=== PATIENT | male | born 1990 | race Caucasian/White ===

== ENCOUNTER 2018-10-28 08:17 | Emergency (ER) | payer SELFPAY ==
[2018-10-28 08:20] VITALS: BP 134/94; PULSE 96; RESP 18; TEMP 37; O2SAT 95
--- NOTE | 2018-10-28 08:59 | W.ED.GENAD ---
Discharge Plan Disposition Patient Disposition: HOME Condition: Stable Discharge Details Chief Complaint: Laceration Clinical Impression: Laceration Primary Care Provider: Juan Jose Goins ED Provider: Christy Forde Home Meds and New Rx's Prescriptions: New cephalexin [Keflex] 500 mg capsule 500 mg PO QID 7 Days Qty: 28 RF: 0 Continued albuterol sulfate [Ventolin HFA] 200 PUFF HFA aerosol inhaler 2 puff . PRN PRNRF: 0 budesonide [Pulmicort Flexhaler] 120 PUFF aerosol powdr breath activated 2 puff . BID RF: 0 omeprazole 20 MG tablet,delayed release (DR/EC) 20 mg PO PRN PRNRF: 0 Discharge Instructions Instructions: Laceration (ED) Additional Instructions: Keep the wound clean, dry and covered. Do not cover with tape or Band-Aid. Let the Dermabond glue fall off naturally. Do not peel it off. Do not soak foot in water. Take the antibiotics until finished. Follow-up with the primary care doctor in 3 days for reevaluation. Return immediately to the emergency department with any worsening or new concerning symptoms such as fever, increased pain, redness or swelling. Discharge Data Discharge Physician: Christy Forde Medical Decision Making 28-year-old male who presents with a laceration to his right heel sustained when stepping on a prong from a plug at home while barefoot prior to arrival. There is a 1 cm square C-shaped flap laceration noted to the right medial heel. There is no bony injury or foreign body noted. There is no evidence of infection. Neurovascular intact. I was able to use tweezers to pull the flap tucked underneath the skin to then realign it to the remaining edges and now it is well approximated. The area was extensively cleaned with Hibiclens. Due to risk of infection with open wound on the heel, I think it would be beneficial to keep the skin flap. I think that a suture would likely tear through the flap, so the flap was glued with dermabond to the edges. As this was not an actual puncture wound but rather it appears that it was a laceration, and patient was barefoot, there appears to be a less likely chance of infections associated with puncture wound. As patient denies any foreign body and wound is superficial, I do not see an indication for imaging and patient is agreeable. He still was offered imaging of his foot but he declines. Tetanus up-to-date 2013. Patient will be given a prescription for Keflex and due to wound on the heel. He is instructed to keep wound clean, dry and covered. He is instructed to avoid tape or Band-Aids to area but to cover with gauze and protective dressing. He is instructed to follow-up with primary care doctor for reevaluation and return here with any signs of worsening symptoms such as fever, increased pain, redness or swelling. Medical Records Medical records reviewed: Yes I reviewed the patient's medical records. HPI General Mode of arrival: ambulatory. Date/Time Provider Initiated Documentation: 10/28/18 08:25. Limitations to Documentation: no limitations. Information obtained by: patient. HPI Narrative: Pt is a 28yo M w/ a h/o asthma who presents for puncture wound to R foot sustained just prior to arrival. Patient states he was walking barefoot at home when he stepped on the prongs of a plug. Patient states it caused a skin tear on the bottom of his foot. He states he has been able to ambulate but with pain. 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 He states he also came here for a work note. Patient is unsure of his tetanus status. He denies any known foreign body within the foot. He denies any bony injury. Related Data Home Medications Medication Instructions Recorded Confirmed albuterol sulfate [Ventolin HFA] 2 puff . PRN PRN 02/01/17 09/21/17 budesonide [Pulmicort Flexhaler] 2 puff . BID 02/01/17 09/21/17 omeprazole 20 mg PO PRN PRN 09/21/17 09/21/17 cephalexin [Keflex] 500 mg PO QID 7 Days #28 cap 10/28/18 Previous Rx's Medication Instructions Recorded cephalexin [Keflex] 500 mg PO QID 7 Days #28 cap 10/28/18 Allergies Allergy/AdvReac Type Severity Reaction Status Date / Time No Known Allergies Allergy Unverified 09/21/17 11:48 General Stated Complaint: Laceration FAITH: 4 Review of Systems Review of Systems All systems reviewed & are unremarkable except as noted in HPI and below Constitutional Reports as per HPI, Denies chills and Denies fever(s) Eyes Denies blurry vision ENT Denies dizziness, Denies sore throat and Denies throat swelling Cardiovascular Denies chest pain and Denies dyspnea Respiratory Denies cough and Denies dyspnea Gastrointestinal Denies abdominal pain, Denies diarrhea and Denies vomiting Genitourinary Denies hematuria and Denies dysuria Musculoskeletal Denies back pain and Denies numbness Integumentary/Breasts Denies lesions, Denies rash and Reports other (laceration R foot) Neurologic Denies dizziness, Denies focal weakness and Denies numbness Allergic/Immunologic Denies throat swelling [facility] Medical History Asthma (Chronic) Surgical History No significant past surgical history (Acute) Social History Smoking/Tobacco Use Status: Current every day Tobacco Type: cigarettes Alcohol Intake: never Drug use: Never Do you feel safe at home: Yes Do you feel safe in your relationship?: Yes Exam Const General: cooperative, healthy appearing and no acute distress HENMT Head: normal to inspection Mouth: oral mucosae normal Eyes General: appearance normal, both eyes and all related structures Neck Neck: normal visual inspection Resp Effort & Inspection: normal respiratory effort and able to speak in complete sentences Cardio Rate: regular rate Skin General skin exam: no rashes or lesions noted Neuro General: alert, awake and oriented x3 Motor: muscle tone normal throughout Extrem Other: There is a 1 cm square C-shaped flap laceration noted on the heel of the right foot. It is located on the medial surface of the heel. There is no obvious foreign body. No erythema, edema, ecchymosis. No bony injury. R PT pulse intact. Psych Appearance: grossly normal Affect: normal affect Course Vital Signs Temperature 98.6 F 10/28/18 08:20 Pulse 96 H 10/28/18 08:20 Respiratory Rate 18 10/28/18 08:20 Blood Pressure 134/94 H 10/28/18 08:20 Pulse Oximetry 95 10/28/18 08:20 Temperature 98.6 F 10/28/18 08:20 Temperature Source Temporal Artery Scan 10/28/18 08:20 Pulse 96 H 10/28/18 08:20 Respiratory Rate 18 10/28/18 08:20 Respiratory Effort Non-Labored 10/28/18 08:22 Blood Pressure 134/94 H 10/28/18 08:20 Blood Pressure Position Sitting 10/28/18 08:20 Pulse Oximetry 95 10/28/18 08:20 Oxygen Delivery Method Room Air 10/28/18 08:20 Oxygen Flow Rate 0 10/28/18 08:20 Pain Level 9 10/28/18 08:26
== END 2018-10-28 09:55 | disposition home or self-care (01) ==
PROVIDERS: Emergency Provider Physician Assistant; PCP General Practice
DX: S91.311A Laceration without foreign body, right foot, initial encounter (principal); W45.8XXA Other foreign body or object entering through skin, initial encounter
CPT/HCPCS: 12001

== ENCOUNTER 2019-09-07 03:22 | Outpatient (CLI) | payer MEDICAID, SELFPAY | END 2019-09-07 03:42 | PROVIDERS: PCP Family Medicine; Visit Provider Family Medicine | DX: J45.909 Unspecified asthma, uncomplicated (principal); Z53.09 Procedure and treatment not carried out because of other contraindication ==

== ENCOUNTER 2019-09-20 19:37 | Emergency (ER) | payer MEDICAID, SELFPAY ==
[2019-09-20 19:55] VITALS: BP 124/79; PULSE 124; RESP 20; TEMP 36.3; O2SAT 95
--- NOTE | 2019-09-20 20:25 | W.ED.GENAD ---
Discharge Plan Disposition Patient Disposition: HOME Condition: Good Discharge Details Chief Complaint: RespSymp Clinical Impression: Influenza, Pneumonia, Asthma exacerbation Primary Care Provider: Tony Dao ED Provider: Becca Antunez Home Meds and New Rx's Prescriptions: New prednisone 50 mg tablet 50 mg PO DAILY Qty: 4 RF: 0 doxycycline hyclate 100 mg tablet 100 mg PO BID Qty: 10 RF: 0 Continued Pulmicort Flexhaler 180 mcg/actuation aerosol powdr breath activated 2 inh inhalation BID Qty: 1 RF: 12 albuterol sulfate [Ventolin HFA] 90 mcg/actuation HFA aerosol inhaler 2 puff inhalation Q6H PRN (Reason: shortness of breath or wheezing) Qty: 18 RF: 6 montelukast [Singulair] 10 mg tablet 10 mg PO QHS Qty: 30 RF: 1 omeprazole 20 mg capsule,delayed release(DR/EC) 20 mg PO BID RF: 0 oseltamivir [Tamiflu] 75 mg capsule 75 mg PO DAILY Qty: 5 RF: 0 Discharge Instructions Instructions: Doxycycline (By mouth), Influenza (ED), Pneumonia (ED) Additional Instructions: Encourage water intake. Tylenol and/or ibuprofen as needed for discomfort or fevers. Please take the antibiotics as prescribed. If symptoms improve, please take the entire course. Please continue the Tamiflu as previously prescribed. Steroids as prescribed for your asthma. If you develop difficulty breathing, shortness of breath, inability stay hydrated or other new/worsening symptoms please seek care urgently once again. Otherwise, please follow-up with primary care date of the week for reevaluation. Stand Alone Forms: Work Release Referrals: Tony Dao DO [Primary Care Provider] - Discharge Data Discharge Date/Time-TO BE ENTERED AT DEPARTURE: 09/20/19 22:30 Medical Decision Making Patient is a pleasant 29-year-old male presenting today with chief complaint of influenza. Reports that he was diagnosed with influenza by his primary care provider 2 days ago and started on Tamiflu. Despite using this, he reports his symptoms have worsened this afternoon. In particular, he feels that his asthma is exacerbated. He did use inhaler with some relief. However, he continues to cough, have body aches and intermittent fevers. States that during 1 of his coughing fits, he did vomit x1. Is not currently feeling nauseated. Denies any diarrhea. States he does have some discomfort with coughing. No recent travel. No known sick contacts. On exam, patient is resting comfortably. He does not appear toxic. His initial heart was documented 124 but this seems to come down by the time I was auscultating his chest. Lungs are clear, moving air well. I do not appreciate any wheezes, rales, rhonchi. However, given the patient's progression of symptoms, feel that imaging is appropriate and will obtain chest x-ray. Give ODT Zofran to help with his nausea as well as Tylenol ibuprofen to help with his diffuse body aches. X-ray reviewed by radiology: FINDINGS: Lungs: Left basilar linear increased markings with small patchy adjacent parenchymal density. Pleural space: Unremarkable. No pleural effusion. No pneumothorax. Heart/Mediastinum: Unremarkable. No cardiomegaly. Bones/joints: Unremarkable. IMPRESSION: Left basilar linear fibrotic/atelectatic changes. Small patchy adjacent infiltrate cannot be excluded. Please correlate with the patient's clinical findings. Discussed these findings with the patient. Given his increased cough and asthma exacerbation, I would prefer to treat this as it is pneumonia despite him clinically looking otherwise well. Plan to treat patient with doxycycline. We will also start him on prednisone burst for his asthma. Patient does feel much improved after Zofran, Tylenol and ibuprofen. He is requesting food and discharge. Patient was given strict return precautions. Encourage hydration. Advise follow-up with primary care for reevaluation at the end of the week. All his questions and concerns were addressed and he is in agreement this plan. [facility] General Mode of arrival: ambulatory. Date/Time Provider Initiated Documentation: 09/20/19 20:24. Limitations to Documentation: no limitations. Information obtained by: patient, family (signficant other) and RN notes reviewed. History of Present Illness 29 year old M presents to the emergency department with the chief complaint of cough, congestion, fevers, asthma exacerbation, described as moderate, Quality is described as aching (wtih cough), and is localized to the chest. Patient reports no radiation. Patient started experiencing this day(s) and it has been constant. No relieving factors improve symptom(s), No exacerbating factors reported . Patient notes cough, fever/chills, loss of appetite (diminshed this afternoon), nausea/vomiting (vomited x 1 , associates with forceful coughing) and shortness of breath (associated with asthma, responded to inhaler); denies chest pain, diaphoresis, headaches and rash. Patient did receive the following treatments prior to arrival, other (inhaler) Related Data Home Medications Medication Instructions Recorded Confirmed albuterol sulfate 90 mcg/actuation 2 puff INHALATION Q6H PRN #18 gm 08/04/19 09/20/19 aerosol inhaler budesonide 180 mcg/actuation 2 inh INHALATION BID #1 each 08/04/19 09/20/19 breath activated powder inhaler montelukast 10 mg tablet 10 mg PO QHS #30 tab 08/29/19 09/20/19 omeprazole 20 mg capsule,delayed 20 mg PO BID 09/14/19 09/20/19 release oseltamivir 75 mg capsule 75 mg PO DAILY #5 cap 09/18/19 09/20/19 doxycycline hyclate 100 mg PO BID #10 tab 09/20/19 prednisone 50 mg PO DAILY #4 tab 09/20/19 Previous Rx's Medication Instructions Recorded albuterol sulfate 90 mcg/actuation 2 puff INHALATION Q6H PRN #18 gm 08/04/19 aerosol inhaler budesonide 180 mcg/actuation 2 inh INHALATION BID #1 each 08/04/19 breath activated powder inhaler montelukast 10 mg tablet 10 mg PO QHS #30 tab 08/29/19 oseltamivir 75 mg capsule 75 mg PO DAILY #5 cap 09/18/19 doxycycline hyclate 100 mg PO BID #10 tab 09/20/19 prednisone 50 mg PO DAILY #4 tab 09/20/19 Allergies Allergy/AdvReac Type Severity Reaction Status Date / Time No Known Allergies Allergy Verified 09/14/19 13:14 General Stated Complaint: RespSymp FAITH: 3 Review of Systems Constitutional Constitutional: Reports as per HPI, Reports fatigue, Reports fever(s) (reports intermittent fevers over the past few days), Denies headache(s) and Reports malaise Eyes Eyes: Reports as per HPI, Denies eye discharge and Denies irritation ENT Ears, Nose, Mouth, and Throat: Reports as per HPI and Denies headache(s) Cardiovascular Cardiovascular: Reports as per HPI, Denies chest pain and Denies dyspnea Respiratory Respiratory: Reports as per HPI and Denies dyspnea Gastrointestinal Gastrointestinal: Reports as per HPI, Denies abdominal pain, Denies change in bowel habits, Denies nausea and Denies vomiting Integumentary/Breasts Skin/Breast: Reports as per HPI and Denies rash Neurologic Neurologic: Reports as per HPI and Denies headache(s) Endocrine Endocrine: Reports fatigue [facility] Medical History Asthma (Chronic) Depression (Chronic) Dyspepsia (Acute) Insomnia (Acute) Surgical History No significant past surgical history (Acute) Family History (Updated 08/04/19 @ 11:24 by Gwendolyn Gomez RN) Maternal Grandmother Pancreatic cancer Diabetes Paternal Grandmother Diabetes Father Heart disease Hypertension Mother Colon cancer Social History (Updated 08/29/19 @ 13:58 by Glenny Coulter LPN) Smoking/Tobacco Use Status: Current every day Tobacco Type: cigarettes Years smoked: 10 Tobacco: How many years used: 10 Second Hand Exposure: No Alcohol Intake: never Drug use: Never Substance use type: does not use Adopted: Yes Foster care: Yes Household members: significant other Housing: apartment Number of Children: 0 Communication Needs: None Education Level: high school Do you need help understanding health information?: Never current occupation: [employer] Pets and animals: Yes Pets and animals: cat(s) and bird(s) Sexually active: No Do you think of yourself as: Decline to Provide Current gender identity: male What type of physical activity do you participate in: irregular exercise Stefanei/Congregation: No preference Special stefanie needs: No Agree to transfusion: Yes Seatbelt use: sometimes Helmet use: No 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 Working smoke detector in home: Yes Fire extinguisher in home: Yes Carbon monox detector in home: Yes Firearms in home: No Do you feel safe at home: Yes Do you feel safe in your relationship?: Yes Exam Const General: cooperative, healthy appearing, comfortable, no acute distress, well developed and well groomed Nutritional Appearance: average body habitus and well nourished Orientation: alert and awake [facility] Head: normal to inspection, normocephalic and atraumatic Ears: hearing grossly normal bilaterally, external ears normal and TM's normal bilaterally General nose exam: external nose normal and nares normal Face and sinus: normal facial exam, sinuses nontender and face symmetric Mouth: oral mucosae normal, lip normal, tongue normal, oropharynx normal and moist mucous membranes Teeth and gingiva: dentition normal Throat: posterior oropharynx normal, tonsils normal and uvula midline Eyes General: appearance normal, both eyes and all related structures Neck Neck: normal visual inspection, full ROM, no lymphadenopathy and no meningeal signs Resp Effort & Inspection: normal respiratory effort, able to speak in complete sentences and no respiratory distress Auscultation: clear to auscultation bilaterally, no rales, no rhonchi and no wheezes Cardio Rate: regular rate Rhythm: regular rhythm Heart Sounds: S1 normal and S2 normal Skin General skin exam: no rashes or lesions noted Neuro General: alert and awake Cognition: normal cognition Speech: speech normal Gait: normal gait Psych Appearance: grossly normal and well kempt Mental Status: mental status grossly normal Speech and Movement: speech and movement normal Course Vital Signs Vital signs: Vital Signs Temperature 36.3 C L 09/20/19 19:55 Pulse 124 H 09/20/19 19:55 Respiratory Rate 09/20/19 19:55 Blood Pressure 124/79 09/20/19 19:55 Pulse Oximetry 95 09/20/19 19:55 Temperature 36.3 C L 09/20/19 19:55 Temperature Source Skin 09/20/19 19:55 Pulse 124 H 09/20/19 19:55 Respiratory Rate 20 09/20/19 19:55 Respiratory Effort 09/20/19 20:16 Blood Pressure 124/79 09/20/19 19:55 Pulse Oximetry 95 09/20/19 19:55 Oxygen Delivery Method Room Air 09/20/19 19:55 Oxygen Flow Rate 0 09/20/19 19:55 Pain Level 7 09/20/19 19:55 Comment 09/20/19 19:55
[2019-09-20] MEDS: Ibuprofen 600 MG TAB PO (21:04)
[2019-09-20] MEDS: Ondansetron O.D.T. 4 MG TABEF PO (21:04)
[2019-09-20] MEDS: Acetaminophen 500 MG TAB 1000 MG PO (21:04)
--- NOTE | 2019-09-20 21:35 | DI.RAD_ITS ---
EXAM: XR CHEST 2V PA LATERAL INDICATION: cough. COMPARISON: No exams were available for comparison TECHNIQUE: 2D digital imaging was performed. FINDINGS: The cardiac and mediastinal contours have a normal appearance. There are linear densities above the left diaphragm which could represent infiltrate versus atelectasis. Remainder of the lung tai ap pear clear. No effusions or pneumothorax is seen. IMPRESSION: Left basilar atelectasis versus infiltrate. DATA REPOSITORY: RADIATION DOSE DELIVERED:
--- NOTE | 2019-09-20 21:56 | DI.VRAD_ITS ---
PROCEDURE INFORMATION: Exam: XR Chest, 2 Views Exam date and time: 09/20/2019 9:31 PM Age: 29 years old Clinical indication: Other: Cough TECHNIQUE: Imaging protocol: XR of the chest Views: 2 views. COMPARISON: CR CHEST 2 VIEWS PA,LAT 12/03/2016 2:11 PM FINDINGS: Lungs: Left basilar linear increased markings with small patchy adjacent parenchymal density. Pleural space: Unremarkable. No pleural effusion. No pneumothorax. Heart/Mediastinum: Unremarkable. No cardiomegaly. Bones/joints: Unremarkable. IMPRESSION: Left basilar linear fibrotic/atelectatic changes. Small patchy adjacent infiltrate cannot be excluded. Please correlate with the patient's clinical findings. Dictated and Authenticated by: Basim Florence MD. Ordering:JV Hudson MD
[2019-09-20] MEDS: Doxycycline Hyclate 100 MG CAP 200 MG PO (22:23)
[2019-09-20] MEDS: predniSONE 10 MG TAB 50 MG PO ×2 (22:24→22:25)
[2019-09-20 22:30] VITALS: BP 137/77; PULSE 89; RESP 20; O2SAT 96
== END 2019-09-20 22:30 | disposition home or self-care (01) ==
PROVIDERS: Emergency Provider Physician Assistant; PCP Family Medicine
DX: J11.00 Influenza due to unidentified influenza virus with unspecified type of pneumonia (principal); J45.901 Unspecified asthma with (acute) exacerbation; F17.210 Nicotine dependence, cigarettes, uncomplicated
CPT/HCPCS: 99283; 71046; 99284; J7512

== ENCOUNTER 2019-10-18 01:24 | Outpatient (CLI) | payer MEDICAID, SELFPAY ==
--- NOTE | 2019-10-18 09:15 | DI.RAD_ITS ---
EXAM: RF BARIUM SWALLOW CLINICAL HISTORY: VOMITING, DYSPEPSIA, R10.13 TECHNIQUE: 2D and realtime digital imaging was performed. CONTRAST MATERIAL: Oral bariumcontrast was administered. COMPARISON: No exams were available for comparison FINDINGS: CHEST X-RAY: The heart and pulmonary vasculature are within normal limits. The lungs are clear. No pl eural effusion or pneumothorax is present. The bones are within normal limits fo the patient's age. ESOPHAGRAM: The esophagus is patent with no evidence for erosions, fold thickening, strictures, or ma sses. With regards to the motility, there is a normal primary stripping wave. No tertiary contraction s were noted. There is a small hiatal hernia. No gastroesophageal reflux is present. Fluoro Time: 1.29 minutes IMPRESSION: Small hiatal hernia, otherwise unremarkable esophagram.
[2019-10-18] MEDS: Barium Sulfate 60% W/V 355 ML BTL PO (10:20)
[2019-10-18] MEDS: Simethicone/Sod Bicarb/Cit Ac, 4 gram PACKET 1 PACKET PO (10:21)
== END 2019-10-18 01:44 ==
PROVIDERS: PCP Family Medicine; Visit Provider Surgery
DX: R11.10 Vomiting, unspecified; R10.13 Epigastric pain; K44.9 Diaphragmatic hernia without obstruction or gangrene
CPT/HCPCS: 74221; J3490

== ENCOUNTER 2020-05-17 02:58 | Outpatient (CLI) | payer MEDICAID, SELFPAY ==
--- NOTE | 2020-05-17 12:30 | DI.RAD_ITS ---
EXAM: XR SCOLIOSIS T-L SPINE CLINICAL HISTORY: Likely thoracic scoliosis, please evaluate,M41.9. TECHNIQUE: 2D digital imaging was performed. COMPARISON: CR,RF RF BARIUM SWALLOW from 10/18/2019 FINDINGS: Standing AP views were performed including the neck through pelvis. There is a mild levoscoliosis wi th the apex at L2-3. There is a minimal dextroscoliosis in the thoracic region. No vertebral body d eformities are seen. There are no significant degenerative changes. There is no significant leg roxana gth discrepancy. The heart size is normal. The lungs are clear. The bowel gas pattern is unremarka ble. Hip joint spaces are well maintained. IMPRESSION: Mild scoliosis. DATA REPOSITORY: RADIATION DOSE DELIVERED:
== END 2020-05-17 03:18 ==
PROVIDERS: PCP Family Medicine; Visit Provider Family Medicine
DX: M41.86 Other forms of scoliosis, lumbar region (principal)
CPT/HCPCS: 72081

== ENCOUNTER 2020-05-22 09:40 | Emergency (ER) | payer MEDICAID, SELFPAY ==
[2020-05-22] VITALS (27 sets, daily range): BP systolic 99–132; BP diastolic 54–96; PULSE 62–107; RESP 13–22; TEMP 36.6; O2SAT 95–100
--- NOTE | 2020-05-22 09:30 | RT.EKG_ITS ---
APPROVED REPORT Exam: Resting ECG Patient Location: E HR:82 bpm ECG Measurements Heart Rate 82 AXIS ND 147 P 65 QRSd 83 QRS 52 QT 367 T 45 QTc 430 Conclusion Sinus rhythm...normal P axis, V-rate 60- 99
--- NOTE | 2020-05-22 09:51 | W.ED.GENAD ---
Discharge Plan Disposition Patient Disposition: HOME Condition: Stable Discharge Details Clinical Impression: Chest pain in adult Primary Care Provider: Tony Dao ED Provider: Jamila Haynes Home Meds and New Rx's Prescriptions: Continued albuterol sulfate [Ventolin HFA] 90 mcg/actuation HFA aerosol inhaler 2 puff inhalation Q6H PRN (Reason: shortness of breath or wheezing) Qty: 18 RF: 6 cyclobenzaprine 10 mg tablet 10 mg PO TID PRN (Reason: muscle spasm) Qty: 90 RF: 2 fluoxetine [Prozac] 20 mg capsule 20 mg PO DAILY Qty: 90 RF: 2 montelukast [Singulair] 10 mg tablet 10 mg PO QHS Qty: 30 RF: 6 esomeprazole magnesium [Nexium] 40 mg capsule,delayed release(DR/EC) 40 mg PO DAILY Qty: 90 RF: 3 Discharge Instructions Instructions: Chest Pain (ED) Additional Instructions: Follow up with primary care provider in 3-5 days. Return to ED sooner if any worsening or concerns. Increase oral fluids. Please take Tylenol or Ibuprofen with food every 4-6 hours as needed for pain and swelling. Return to the ED for any worsening chest pain, shortness of breath, fever or any concerns. Referrals: Tony Dao DO [Primary Care Provider] - Medical Decision Making 30-year-old male presents to the ED with chief complaint of chest pain which began approximately 20 minutes prior to arrival. He reports he woke up and was playing a computer game and began having some right sided chest tightness. He denies any radiation of pain. He denies any shortness of breath, cough, fever chills, nausea vomiting or diarrhea associated with this. He does have a history of asthma, scoliosis, insomnia, depression. He did not take any medications prior to arrival. EKG was reviewed by Dr. Kush Zuluaga MD ER attending, please see his official review and read. No old EKG was available for review. 1016: Informed by staff radiographer patient has received 1 sublingual nitro she was relating 2 out of 10 chest pain prior to administration. After administration is unclear whether his pain is better or worse. Will continue to monitor, troponin is pending at this time. EXAM: XR CHEST 2V PA LATERAL CLINICAL HISTORY: Chest pain TECHNIQUE: 2D digital imaging was performed. COMPARISON: No exams were available for comparison FINDINGS: The heart is not enlarged. The lungs are clear and well expanded. No pleural effusion seen. Mediastinal contours appear intact. IMPRESSION: Normal chest. Initial troponin is within normal limits labs are largely within normal limits. Patient states that his pain is now gone. Discussed repeat troponin testing at approximately 1245, verbalizes understanding. Repeat troponin within normal limits discussed the results with patient who verbalized understanding. This time due to patient's age and lack of risk factors I do feel it is safe for him to be discharged home. He has not complained of any recurrent or continued chest pain throughout stay. Discussed follow-up with his PCP he verbalizes understanding. This text was generated using [employer]ation system, please disregard any oddities of phrase or misspellings. HPI General Mode of arrival: ambulatory. Date/Time Provider Initiated Documentation: 05/22/20 09:41. Limitations to Documentation: no limitations. Information obtained by: patient. HPI Narrative: 30-year-old male presents to the ED with chief complaint of chest pain which began approximately 20 minutes prior to arrival. He reports he woke up and was playing a computer game and began having some right sided chest tightness. He denies any radiation of pain. He denies any shortness of breath, cough, fever chills, nausea vomiting or diarrhea associated with this. He does have a history of asthma, scoliosis, insomnia, depression. He did not take any medications prior to arrival. Related Data Home Medications Medication Instructions Recorded Confirmed albuterol sulfate 90 mcg/actuation 2 puff INHALATION Q6H PRN #18 gm 08/04/19 05/22/20 aerosol inhaler fluoxetine 20 mg capsule 20 mg PO DAILY #90 cap 10/26/19 05/22/20 montelukast 10 mg tablet 10 mg PO QHS #30 tab 11/16/19 05/22/20 esomeprazole magnesium 40 mg 40 mg PO DAILY #90 cap 01/12/20 05/22/20 capsule,delayed release cyclobenzaprine 10 mg tablet 10 mg PO TID PRN #90 tab 05/03/20 05/22/20 Previous Rx's Medication Instructions Recorded albuterol sulfate 90 mcg/actuation 2 puff INHALATION Q6H PRN #18 gm 08/04/19 aerosol inhaler fluoxetine 20 mg capsule 20 mg PO DAILY #90 cap 10/26/19 montelukast 10 mg tablet 10 mg PO QHS #30 tab 11/16/19 esomeprazole magnesium 40 mg 40 mg PO DAILY #90 cap 01/12/20 capsule,delayed release cyclobenzaprine 10 mg tablet 10 mg PO TID PRN #90 tab 05/03/20 Allergies Allergy/AdvReac Type Severity Reaction Status Date / Time No Known Allergies Allergy Verified 05/22/20 09:46 General Stated Complaint: Chest Pain FAITH: 2 Review of Systems Narrative: Constitutional: Negative for weight loss, alert and oriented, well groomed, normal body habitus, appears comfortable. HEENT: Denies trauma, headaches, blurry vision, nasal discharge, sore throat, trouble swallowing. Chest: Denies palpitations, irregular rhythm, hypertension. Positive right-sided chest pain. Respiratory: Denies Shortness of breath, cough, hemoptysis. GI: Denies abdominal pain, nausea, vomiting, diarrhea, constipation. : Denies dysuria, hematuria, flank pain, rectal bleeding. Neuro: Denies dizziness, blurry vision, weakness, syncope, headache or facial numbness. Hematologic: Denies easy bruising, intolerance to heat or cold, hair loss. [facility] Medical History Asthma Depression Dyspepsia Elevated fasting glucose Family history of colon cancer Family history of pancreatic cancer Hiatal hernia with gastroesophageal reflux Insomnia Scoliosis Surgical History No significant past surgical history Family History Maternal Grandmother Pancreatic cancer Diabetes Paternal Grandmother Diabetes Father Heart disease Hypertension Mother Colon cancer Social History Smoking/Tobacco Use Status: Current every day Tobacco Type: cigarettes Years smoked: 10 Tobacco: How many years used: 10 Second Hand Exposure: No Smoking risk assessment performed?: Yes Alcohol Intake: never Drug use: Never Substance use type: does not use Adopted: Yes Caregiver/Support person: No Foster care: Yes Household members: significant other Housing: apartment Number of Children: 0 Communication Needs: None Education Level: high school Do you need help understanding health information?: Never 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 Pets and animals: Yes Pets and animals: cat(s) and bird(s) Sexually active: No Do you think of yourself as: Decline to Provide Current gender identity: male What is your relationship status?: living with partner How often do you get together with friends or relatives?: twice per week How often do you attend anglican or episcopalian services?: decline to answer Do you belong to any clubs or organized social groups?: no Panel score (0-1 are the most socially isolated patients): 1 What type of physical activity do you participate in: irregular exercise Duration: 15-30 minutes/day Frequency: 3-4 times per week Stefanie/Zoroastrian: No preference Special stefanie needs: No Agree to transfusion: Yes Seatbelt use: sometimes Helmet use: No Drive intox or ride w/intox recycling collections driver: No Working smoke detector in home: Yes Fire extinguisher in home: Yes Carbon monox detector in home: Yes Firearms in home: No Do you feel safe at home: Yes Do you feel safe in your relationship?: Yes Exam Narrative Exam Narrative: Constitutional: Alert and oriented x3. Appears stated age. Normal body habitus. Head: Normocephalic, no trauma. Eyes: Pupils PERRLA, Red reflex noted, EOM's intact. Eyelids symmetrical without lesions, discharge, or swelling. ENT: Bilateral TM's WNL, External ear normal to inspection, no mastoid TTP, swelling, or erythema, Nasal turbinates WNL, no nasal discharge. Normal dentition, Posterior pharynx WNL, no exudate. Chest: RRR, Normal S1, S2, distal pulses intact. Resp: Lungs clear to auscultation bilaterally, no wheezes, rales, or rhonchi. Musculoskeletal: Normal gait, 5/5 strength to all four extremities. Skin: No suspicious rashes or lesions. Capillary refill less than 2 sec. Neurologic: Cranial nerves II-XII intact. Alert and oriented x 3. DTR's intact. Hematologic/Lymphatic: No ecchymosis, no lymphadenopathy. Course Vital Signs Vital signs: Vital Signs Temperature 36.6 C 05/22/20 09:45 Pulse 80 05/22/20 09:45 Respiratory Rate 21 05/22/20 09:45 Blood Pressure 132/96 H 05/22/20 09:45 Pulse Oximetry 100 05/22/20 09:45 Temperature 36.6 C 05/22/20 09:45 Temperature Source Skin 05/22/20 09:45 Pulse 80 05/22/20 09:45 Respiratory Rate 21 05/22/20 09:45 Respiratory Effort Non-Labored 05/22/20 09:49 Blood Pressure 132/96 H 05/22/20 09:45 Blood Pressure Position Sitting 05/22/20 09:45 Pulse Oximetry 100 05/22/20 09:45 Oxygen Delivery Method Room Air 05/22/20 09:45 Oxygen Flow Rate 0 05/22/20 09:45 Pain Level 3 05/22/20 09:45
[2020-05-22] MEDS: Normal Saline Flush 10 ML SYR IVP (09:59)
[2020-05-22 10:06] LABS: Absolute Basophil Count 0.04 10^3/uL (0.0-0.2); Absolute Eosinophil Count 0.18 10^3/uL (0.0-0.7); Absolute Lymphocyte Count 1.69 10^3/uL (1.2-3.4); Absolute Monocyte Count 0.35 10^3/uL (0.1-0.8); Absolute Neutrophil Count 3.12 10^3/uL (1.2-6.7); Basophils % 0.7; Eosinophils % 3.3; HGB 17.3 g/dL (13.5-17.5); Lymphocytes % 31.4; MCH 30.1 pg (27.0-33.0); MCHC 35.3 % (32.0-36.0); MCV 85.4 fL (80-95); MPV 10.4 fL (8.0-11.0); Monocytes % 6.5; Neutrophils % 58.1; Nucleated RBC 0 %; Platelet Count 260 10^3/uL (130-400); RBC 5.74 10^6/uL (4.36-5.78); RDW 12.2 % (11.8-14.1); RDW-SD 37.8 fL; WBC 5.38 10^3/uL (4.4-10.8)
[2020-05-22] MEDS: nitroGLYcerin 0.4 MG TAB SL (10:09)
[2020-05-22] MEDS: Aspirin 81 MG CHEW 324 MG CH (10:09)
[2020-05-22 10:22] LABS: ALT 60 U/L (16-63); AST 31 U/L (15-37); Albumin 4.1 g/dL (3.4-5.0); Alkaline Phosphatase 75 U/L (46-116); Anion Gap 5.4 mmol/L (3-11); BUN 15 mg/dL (7-18); Bilirubin, Total 0.7 mg/dL (0.2-1.0); CO2 28.6 mmol/L (21.0-32.0); Calcium 9.1 mg/dL (8.5-10.1); Chloride 105 mmol/L (98-107); Glucose 107 mg/dL (74-106); Sodium 139 mmol/L (136-145); Total Protein 7.4 g/dL (6.4-8.2)
[2020-05-22 10:27] LABS: Troponin I < 0.05 ng/mL (<0.06)
--- NOTE | 2020-05-22 10:50 | DI.RAD_ITS ---
EXAM: XR CHEST 2V PA LATERAL CLINICAL HISTORY: Chest pain TECHNIQUE: 2D digital imaging was performed. COMPARISON: No exams were available for comparison FINDINGS: The heart is not enlarged. The lungs are clear and well expanded. No pleural effusion seen. Mediastin al contours appear intact. IMPRESSION: Normal chest. RADIATION DOSE DELIVERED: Total DLP
[2020-05-22 10:58] LABS: D-Dimer 141 ng/mlFEU (<500)
[2020-05-22 12:52] LABS: Troponin I < 0.05 ng/mL (<0.06)
== END 2020-05-22 13:09 | disposition home or self-care (01) ==
PROVIDERS: Emergency Provider Registered Nurse Emergency; PCP Family Medicine
DX: R07.89 Other chest pain (principal)
CPT/HCPCS: 80053; 93005; 99284; 71046; 83735; 84484; 85025; 85379; 93010

== ENCOUNTER 2020-05-30 15:20 | Emergency (ER) | payer MEDICAID, SELFPAY ==
[2020-05-30] VITALS (36 sets, daily range): BP systolic 116–141; BP diastolic 64–96; PULSE 84–116; RESP 13–27; TEMP 36.7–37.1; O2SAT 92–100
--- NOTE | 2020-05-30 15:15 | RT.EKG_ITS ---
APPROVED REPORT Exam: Resting ECG Patient Location: E HR:101 bpm ECG Measurements Heart Rate 101 AXIS NM 144 P 68 QRSd 81 QRS 47 QT 328 T 60 QTc 426 Conclusion Sinus tachycardia...rate> 99 Probable left atrial enlargement...P >50mS, <-0.10mV V1
[2020-05-30] MEDS: Normal Saline Flush 10 ML SYR IVP ×2 (15:30→16:35)
--- NOTE | 2020-05-30 15:30 | DI.CT_ITS ---
EXAM: CT CHEST PE CTA CLINICAL HISTORY: chest pain, tachycardia. TECHNIQUE: Imaging Protocol: Axial CT angiography was performed with multi-slice acquisition and mu lti-planar and/or 3D reconstructions. CONTRAST MATERIAL: Intravenous: Omnipaque 350 Contrast volume:100 mL COMPARISON: CT ABD PELVIS WITH CONTRAST from 09/22/2014 CR XR CHEST 2V PA LATERAL from 05/22/2020 FINDINGS: Pulmonary Arteries: No evidence of filling defect to suggest pulmonary emboli. Tracheobronchial tree: Patent where visualized. Mediastinum and Cayla: No dominant adenopathy or fluid collection. Pulmonary parenchyma: No consolidation or dominant measurable mass. No architectural distortion. Pleura: No effusion or pneumothorax. Heart: The heart is not dilated. No coronary artery calcifications are seen. No pericardial effusion. Aorta: Thoracic aorta non-dilated. No dissection. Upper abdomen: Unremarkable. Bones: Normal. Soft tissues: Unremarkable. IMPRESSION: No evidence of pulmonary embolism, thoracic aortic dissection or aneurysm. RADIATION DOSE DELIVERED: 452.28mGy.cm Total DLP DATA REPOSITORY: All CT scans at this facility are submitted to the National Radiology Data Registry (NRDR) Dose Index Registry (DIR) with the [employer] (ACR). RADIATION OPTIMIZATION: All CT scans at this facility use at least one of these dose optimization te chniques: automated exposure control; mA and/or kV adjustment per patient size (includes targeted exa ms where dose is matched to clinical indication); or iterative reconstruction.
[2020-05-30 15:43] LABS: Abs Immature Grans 0.03 10^3/uL (0.0-0.06); Absolute Basophil Count 0.04 10^3/uL (0.0-0.2); Absolute Eosinophil Count 0.16 10^3/uL (0.0-0.7); Absolute Lymphocyte Count 2.32 10^3/uL (1.2-3.4); Absolute Monocyte Count 0.51 10^3/uL (0.1-0.8); Absolute Neutrophil Count 5.64 10^3/uL (1.2-6.7); Basophils % 0.5; Eosinophils % 1.8; HCT 47.5 % (40.0-50.0); HGB 16.9 g/dL (13.5-17.5); Immature Grans % 0.3; Lymphocytes % 26.7; MCH 29.9 pg (27.0-33.0); MCHC 35.6 % (32.0-36.0); MCV 84.1 fL (80-95); MPV 10.5 fL (8.0-11.0); Monocytes % 5.9; Neutrophils % 64.8; Nucleated RBC 0 %; Platelet Count 286 10^3/uL (130-400); RBC 5.65 10^6/uL (4.36-5.78); RDW 12.1 % (11.8-14.1); RDW-SD 36.4 fL
[2020-05-30 15:59] LABS: ALT 63 U/L (16-63); Albumin 4.2 g/dL (3.4-5.0); Alkaline Phosphatase 79 U/L (46-116); Anion Gap 14.4 mmol/L (3-11); BUN 15 mg/dL (7-18); Bilirubin, Total 0.7 mg/dL (0.2-1.0); CO2 23.6 mmol/L (21.0-32.0); CREATININE 1.19 mg/dL (0.70-1.30); Chloride 104 mmol/L (98-107); Glucose 124 mg/dL (74-106); PTT Activated 24.5 sec (21.0-27.5); Potassium 3.2 mmol/L (3.5-5.1); Prothrombin Time 10.5 sec (9.3-11.0); Sodium 142 mmol/L (136-145); Total Protein 7.4 g/dL (6.4-8.2)
--- NOTE | 2020-05-30 16:04 | W.ED.GENAD ---
Discharge Plan Disposition Patient Disposition: HOME Condition: Stable Discharge Details Clinical Impression: Chest pain in adult Primary Care Provider: Tony Dao ED Provider: Yeison Cortes Home Meds and New Rx's Prescriptions: Continued albuterol sulfate [Ventolin HFA] 90 mcg/actuation HFA aerosol inhaler 2 puff inhalation Q6H PRN (Reason: shortness of breath or wheezing) Qty: 18 RF: 6 cyclobenzaprine 10 mg tablet 10 mg PO TID PRN (Reason: muscle spasm) Qty: 90 RF: 2 fluoxetine [Prozac] 20 mg capsule 20 mg PO DAILY Qty: 90 RF: 2 montelukast [Singulair] 10 mg tablet 10 mg PO QHS Qty: 30 RF: 6 esomeprazole magnesium [Nexium] 40 mg capsule,delayed release(DR/EC) 40 mg PO DAILY Qty: 90 RF: 3 Discharge Instructions Instructions: Chest Pain (ED), Hypokalemia (ED) Additional Instructions: Your diagnostic work-up today revealed mild hypokalemia (low potassium). Incidental finding noted on your preliminary CT interpretation is central vascular congestion. Please be sure to discuss these findings with your primary care physician in follow-up. Official radiologic interpretation will be available tomorrow. Please follow-up with your primary care physician. Call tomorrow. Return to the emergency department for any worsening or new concerning symptoms. Referrals: Tony Dao DO [Primary Care Provider] - Discharge Data Discharge Date/Time-TO BE ENTERED AT DEPARTURE: 05/30/20 19:45 Medical Decision Making 1611??30-year-old male here with recurrent chest pain, right-sided, with associated shortness of breath. Patient is tachycardic. Screening ECG was reviewed and interpreted by me: Please see report, sinus tachycardia 101 bpm. Consider acute life-threatening pulmonary embolism. Plan to obtain CTA of the chest. Patient notes he does have asthma. He is not currently wheezing and did use inhaler earlier today. He does think an breathing treatment may help symptoms. --Patient reassessed and symptoms improved after neb. --CT of the chest was reviewed and interpreted by radiology: IMPRESSION: 1. No evidence of any pulmonary embolism. 2. A normal thoracic aorta. 3. Central vascular congestive changes. No pulmonary edema. No pneumonia Labs reviewed and nondiagnostic. Delta troponin is negative. BNP is negative (BNP was sent given symptoms and central vascular congestion noted on chest x-ray). Patient reassessed and remained stable. Heart rate improved and now 80s to 90s. Patient now noting on further discussion that he does think stress at work has contributed to his symptoms. I recommended he either take some time off from work or potentially look for different position his place of employment. Plan will be for close follow-up with PCP. Usual and customary discharge instructions reviewed with the patient. HPI General Mode of arrival: ambulatory. Date/Time Provider Initiated Documentation: 05/30/20 15:32. Limitations to Documentation: no limitations. Information obtained by: patient. HPI Narrative: 30-year-old male with history of asthma presents with chief complaint of chest pain. Patient notes pain started around 930 this morning and has waxed and waned since onset. More severe this afternoon. Pain is localized to his right chest feels like a pressure radiates to his right jaw and right arm. Pain is now moderate with no modifiers. He has some associated shortness of breath. No associated fever or cough. Of note, patient had recent similar chest pain about a week ago was seen here in the emergency department at that time, he had negative labs, chest x-ray and negative EKG and was discharged. Related Data Home Medications Medication Instructions Recorded Confirmed albuterol sulfate 90 mcg/actuation 2 puff INHALATION Q6H PRN #18 gm 08/04/19 05/22/20 aerosol inhaler fluoxetine 20 mg capsule 20 mg PO DAILY #90 cap 10/26/19 05/22/20 montelukast 10 mg tablet 10 mg PO QHS #30 tab 11/16/19 05/22/20 esomeprazole magnesium 40 mg 40 mg PO DAILY #90 cap 01/12/20 05/22/20 capsule,delayed release cyclobenzaprine 10 mg tablet 10 mg PO TID PRN #90 tab 05/03/20 05/22/20 Previous Rx's Medication Instructions Recorded albuterol sulfate 90 mcg/actuation 2 puff INHALATION Q6H PRN #18 gm 08/04/19 aerosol inhaler fluoxetine 20 mg capsule 20 mg PO DAILY #90 cap 10/26/19 montelukast 10 mg tablet 10 mg PO QHS #30 tab 11/16/19 esomeprazole magnesium 40 mg 40 mg PO DAILY #90 cap 06/19/20 capsule,delayed release cyclobenzaprine 10 mg tablet 10 mg PO TID PRN #90 tab 05/03/20 Allergies Allergy/AdvReac Type Severity Reaction Status Date / Time No Known Allergies Allergy Verified 05/22/20 09:46 General Stated Complaint: Chest Pain FAITH: 2 Review of Systems All systems reviewed & are unremarkable except as noted in HPI and below Constitutional Constitutional: Denies fever(s) Cardiovascular Cardiovascular: Reports as per HPI [facility] Medical History Asthma Depression Dyspepsia Elevated fasting glucose Family history of colon cancer Family history of pancreatic cancer Hiatal hernia with gastroesophageal reflux Insomnia Scoliosis Surgical History No significant past surgical history Family History Maternal Grandmother Pancreatic cancer Diabetes Paternal Grandmother Diabetes Father Heart disease Hypertension Mother Colon cancer Social History Smoking/Tobacco Use Status: Current every day Tobacco Type: cigarettes Years smoked: 10 Tobacco: How many years used: 10 Second Hand Exposure: No Smoking risk assessment performed?: Yes Alcohol Intake: never Drug use: Never Substance use type: does not use Adopted: Yes Caregiver/Support person: No Foster care: Yes Household members: significant other Housing: apartment Number of Children: 0 Communication Needs: None Education Level: high school Do you need help understanding health information?: Never current occupation: [employer], [employer] Pets and animals: Yes Pets and animals: cat(s) and bird(s) Sexually active: No Do you think of yourself as: Decline to Provide Current gender identity: male What is your relationship status?: living with partner How often do you get together with friends or relatives?: twice per week How often do you attend jewish or yarsanism services?: decline to answer Do you belong to any clubs or organized social groups?: no Panel score (0-1 are the most socially isolated patients): 1 What type of physical activity do you participate in: irregular exercise Duration: 15-30 minutes/day Frequency: 3-4 times per week Stefanie/Anabaptist: No preference Special stefanie needs: No Agree to transfusion: Yes Seatbelt use: sometimes Helmet use: No Drive intox or ride w/intox [employer] driver: No Working smoke detector in home: Yes Fire extinguisher in home: Yes Carbon monox detector in home: Yes Firearms in home: No Do you feel safe at home: Yes Do you feel safe in your relationship?: Yes Exam Const General: cooperative and no acute distress HENMT Mouth: moist mucous membranes Eyes Conjunctivae: normal conjunctivae Sclera: normal sclerae Neck Neck: trachea midline, supple and no JVD Resp Auscultation: clear to auscultation bilaterally, no rales, no rhonchi and no wheezes Cardio Jugular venous pressure: no JVD Rate: tachycardic Rhythm: regular rhythm GI Palpation: soft, not firm, no guarding, no masses, not rigid and nontender Skin General skin exam: no rashes or lesions noted Neuro General: patient alert, patient awake, patient oriented x3 and tone normal Extrem General: no calf tenderness and no edema Psych Appearance: grossly normal Mental Status: mental status grossly normal Speech and Movement: speech and movement normal Course Vital Signs Vital signs: Vital Signs Temperature 36.7 C 05/30/20 15:23 Pulse 109 H 05/30/20 15:23 Respiratory Rate 20 05/30/20 15:23 Blood Pressure 133/87 05/30/20 15:23 Pulse Oximetry 99 05/30/20 15:23 Temperature 36.7 C 05/30/20 15:23 Temperature Source Temporal Artery Scan 05/30/20 15:23 Pulse 115 H 05/30/20 15:28 Respiratory Rate 20 05/30/20 15:23 Respiratory Effort Non-Labored 05/30/20 15:28 Respiratory Depth Normal 05/30/20 15:28 Respiratory Pattern Normal 05/30/20 15:28 Blood Pressure 133/87 05/30/20 15:28 Blood Pressure Mean 96 05/30/20 15:28 Blood Pressure Position Sitting 05/30/20 15:23 Pulse Oximetry 98 05/30/20 15:30 Oxygen Delivery Method Room Air 05/30/20 15:23 Oxygen Flow Rate 0 05/30/20 15:23 Pain Level 5 05/30/20 15:28 Lab/Test Results Lab/Test Results: Laboratory Tests Range/Units 05/30/20 15:32 WBC (4.4-10.8) 10^3/uL 8.70 RBC (4.36-5.78) 10^6/uL 5.65 Hgb (13.5-17.5) g/dL 16.9 Hct (40.0-50.0) % 47.5 MCV (80-95) fL 84.1 MCH (27.0-33.0) pg 29.9 MCHC (32.0-36.0) % 35.6 RDW (11.8-14.1) % 12.1 Plt Count (130-400) 10^3/uL 286 MPV (8.0-11.0) fL 10.5 Immature Gran % 0.3 Neutrophils % 64.8 Lymphocytes % 26.7 Monocytes % 5.9 Eosinophils % 1.8 Basophils % 0.5 Nucleated RBC % % 0 Absolute Neutrophils (1.2-6.7) 10^3/uL 5.64 Absolute Lymphocytes (1.2-3.4) 10^3/uL 2.32 Absolute Monocytes (0.1-0.8) 10^3/uL 0.51 Absolute Eosinophils (0.0-0.7) 10^3/uL 0.16 Absolute Basophils (0.0-0.2) 10^3/uL 0.04
[2020-05-30 16:08] LABS: Troponin I < 0.05 ng/mL (<0.06)
[2020-05-30] MEDS: Albuterol/Ipratropium 3 ML UPD VIAL UPD (16:29)
[2020-05-30] MEDS: Omnipaque 350 MG/ML 100 ML BTL IJ (16:34)
[2020-05-30] MEDS: Normal Saline - Diluent 50 ML VIAL IV (16:35)
--- NOTE | 2020-05-30 16:43 | DI.VRAD_ITS ---
PROCEDURE INFORMATION: Exam: CT Angiography Chest With Contrast Exam date and time: 05/30/2020 3:35 PM Age: 30 years old Clinical indication: Chest pain; Type not specified; Patient HX: Cp and tachycardia. TECHNIQUE: Imaging protocol: Computed tomographic angiography of the chest with intravenous contrast. 3D rendering (Not supervised by radiologist): MIP and/or 3D reconstructed images were created by the technologist. Radiation optimization: All CT scans at this facility use at least one of these dose optimization techniques: automated exposure control; mA and/or kV adjustment per patient size (includes targeted exams where dose is matched to clinical indication); or iterative reconstruction. Contrast material: OMNIPAQUE 350; Contrast volume: 100 ml; Contrast route: INTRAVENOUS (IV); COMPARISON: CR XR CHEST 2V PA LATERAL 05/22/2020 10:49 AM FINDINGS: Pulmonary arteries: The pulmonary trunk and the left and right pulmonary arteries and their lobar and segmental branches show no evidence of embolism. Aorta: A normal thoracic aorta. Lungs: Th central vascular congestion . No pneumonia. No pleural effusions Pleural space: Unremarkable. No pneumothorax. No pleural effusion. Heart: Unremarkable. No cardiomegaly. No pericardial effusion. Lymph nodes: No mediastinal, hilar or axillary adenopathy. Bones/joints: Unremarkable. No acute fracture. Soft tissues: Unremarkable. Other findings: Normal upper abdomen. IMPRESSION: 1. No evidence of any pulmonary embolism. 2. A normal thoracic aorta. 3. Central vascular congestive changes. No pulmonary edema. No pneumonia Dictated and Authenticated by: Phuc Weaver MD. Ordering:LUKE Latham MD
[2020-05-30] MEDS: Potassium Chloride 20 MEQ TABCR PO (18:01)
[2020-05-30] MEDS: Lactated Ringers 500 ML 1000 ML IV (18:21)
--- NOTE | 2020-05-30 18:45 | RT.EKG_ITS ---
APPROVED REPORT Exam: Resting ECG Patient Location: E HR:102 bpm ECG Measurements Heart Rate 102 AXIS SD 142 P 56 QRSd 98 QRS 42 QT 338 T 48 QTc 439 Conclusion Sinus tachycardia...rate> 99 Probable left atrial enlargement...P >50mS, <-0.10mV V1
[2020-05-30 19:24] LABS: Troponin I < 0.05 ng/mL (<0.06)
[2020-05-30 19:25] LABS: NT-proBNP < 5 pg/mL (<300)
[2020-06-28 10:59] LABS: AST 30 U/L (15-37)
== END 2020-05-30 19:45 | disposition home or self-care (01) ==
PROVIDERS: Emergency Provider Student in an Organized Health Care Education/Training Program; PCP Family Medicine
DX: R07.89 Other chest pain (principal); E87.6 Hypokalemia; R06.02 Shortness of breath; I99.8 Other disorder of circulatory system; J45.909 Unspecified asthma, uncomplicated
CPT/HCPCS: 36415; 71275; 80053; 93005; 94640; 99285; 83880; 84484; 85025; 85610; 85730; 93010; J3490; J7620

== ENCOUNTER 2020-06-03 09:49 | Outpatient (CLI) | payer MEDICAID, SELFPAY ==
--- NOTE | 2020-06-10 08:16 | W.HOLTRPT ---
Date of service: 06/10/20 Time of Service: 08:16 Holter Monitor Report Referring Provider:: brian chavez Indications:: chest pain Holter Monitor Note: This is a 48-hour Holter monitor, reportedly ordered for the indication of chest pain The rhythm throughout was sinus. Average heart rate was 85. Minimum heart rate was 57. Peak heart rate was 150 There was no atrial fibrillation. There were very rare atrial and ventricular ectopic beats There were no pauses greater than 3 seconds. There was no high-grade AV block Patient symptoms corresponded to sinus rhythm and sinus tachycardia
== END 2020-06-03 10:09 ==
PROVIDERS: PCP Family Medicine; Visit Provider Family Medicine
DX: R07.9 Chest pain, unspecified (principal)
CPT/HCPCS: 93225

== ENCOUNTER 2020-06-05 15:10 | Outpatient (CLI) | payer MEDICAID, SELFPAY | END 2020-06-05 15:30 | PROVIDERS: PCP Family Medicine; Visit Provider Family Medicine | DX: R07.9 Chest pain, unspecified (principal) | CPT/HCPCS: 93226 ==

== ENCOUNTER 2020-08-12 01:26 | Outpatient (CLI) | payer MEDICAID, SELFPAY ==
--- NOTE | 2020-08-12 07:00 | DI.MRI_ITS ---
EXAM: MR LUMBAR SPINE WO CLINICAL HISTORY: Known scoliosis, LE pain, ? FORAMINAL COMPRESSION, M41.9. TECHNIQUE: Multiplanar multisequence MRI of the Lumbar spine was performed. COMPARISON: No exams were available for comparison FINDINGS: Bones: The last intervertebral disc space is designated the L5/S1 level for the numbering purpose of this examination. The vertebral body heights are well maintained. Alignment is satisfactory. The si gnal characteristics are unremarkable. Cord: The conus tip ends at the T12 level. It is of normal size and signal intensity. T12-L1: No disc herniations or bulges are present. No central spinal canal or neural foraminal stenos is. L1-2: No disc herniations or bulges are present. No central spinal canal or neural foraminal stenosis . L2-3: No disc herniations or bulges are present. No central spinal canal or neural foraminal stenosis . L3-4: No disc herniations or bulges are present. No central spinal canal or neural foraminal stenosis . L4-5: No disc herniations or bulges are present. No central spinal canal or neural foraminal stenosis . L5-S1: No disc herniations or bulges are present. No central spinal canal or neural foraminal stenosi s. Soft tissues: The visualized SI joints and sacrum are well maintained. The paraspinal soft tissues ar e unremarkable. IMPRESSION: No evidence of significant spinal stenosis or neuroforaminal narrowing. DATA REPOSITORY:
== END 2020-08-12 01:46 ==
PROVIDERS: PCP Family Medicine; Visit Provider Family Medicine
DX: M41.9 Scoliosis, unspecified (principal); M79.604 Pain in right leg; M79.605 Pain in left leg
CPT/HCPCS: 72148

== ENCOUNTER 2020-08-22 22:19 | Emergency (ER) | payer MEDICAID, SELFPAY ==
[2020-08-22] VITALS (7 sets, daily range): BP systolic 121–136; BP diastolic 72–92; PULSE 71–87; RESP 18–24; TEMP 36.6; O2SAT 95–99
--- NOTE | 2020-08-22 22:15 | RT.EKG_ITS ---
APPROVED REPORT Exam: Resting ECG Patient Location: E HR:82 bpm ECG Measurements Heart Rate 82 AXIS CA 137 P 69 QRSd 91 QRS 49 QT 380 T 57 QTc 443 Conclusion Sinus rhythm...normal P axis, V-rate 60- 99 Significant artifact. Normal [place]. Normal ST segments. Normal EKG
--- NOTE | 2020-08-22 22:19 | W.ED.GENAD ---
Discharge Plan Disposition Patient Disposition: HOME Condition: Good Discharge Details Clinical Impression: Anxiety, Chest pain Primary Care Provider: Tony Dao ED Provider: Colin Mccall Meds and New Rx's Prescriptions: Continued albuterol sulfate [Ventolin HFA] 90 mcg/actuation HFA aerosol inhaler 2 puff inhalation Q6H PRN (Reason: shortness of breath or wheezing) Qty: 18 RF: 6 fluoxetine 40 mg capsule 40 mg PO DAILY Qty: 90 RF: 0 cyclobenzaprine 10 mg tablet 10 mg PO TID PRN (Reason: muscle spasm) Qty: 90 RF: 2 metoprolol succinate 25 mg tablet extended release 24 hr 25 mg PO DAILY Qty: 90 RF: 0 montelukast [Singulair] 10 mg tablet 10 mg PO QHS Qty: 30 RF: 6 esomeprazole magnesium [Nexium] 40 mg capsule,delayed release(DR/EC) 40 mg PO DAILY Qty: 90 RF: 3 naproxen 500 mg tablet 500 mg PO BID Qty: 60 RF: 1 Discharge Instructions Instructions: Chest Pain (ED), Anxiety (ED) Additional Instructions: Continue current medications. Follow-up with primary care and mental health for further management. If chest x-ray, EKG, cardiac enzymes all look fine tonight. Return to ED for new or worsening chest pain, shortness of breath, fever, other concerns. Referrals: Tony Dao DO [Primary Care Provider] - Medical Decision Making Patient presenting with 6 hours of chest pressure with intermittent episodes of chest pain that are short-lived. No associated symptoms to speak of. He denies shortness of breath, leg pain. Previous work-up has been negative in the past. EKG tonight is normal. Suspect this is anxiety related as it has been previously. Patient Wells score is 0. He PERCs out for PE. I will get a chest x-ray. I will get one troponin given greater than 6 hours of chest pressure. He will get 0.5 mg Ativan IV. Patient's chest x-ray is unremarkable. Troponin is negative. He does feel better after Ativan. Patient be discharged home. Follow-up with primary care as outpatient. Return to ED for new or worsening chest pain, shortness of breath, fever, other concerns. Medical Records Medical records reviewed: Yes I reviewed the patient's medical records. Lab Data Lab results reviewed: Yes I reviewed the patient's lab results. ECG Data Attestation: I personally reviewed and interpreted this ECG (s) as follows: Interpretation: Normal HPI General Mode of arrival: EMS. Date/Time Provider Initiated Documentation: 08/22/20 22:39. Limitations to Documentation: no limitations. Information obtained by: patient, RN notes reviewed and old records reviewed. HPI Narrative: Patient presents to the ED by ambulance for chest pain/chest pressure. Patient has history of same. He was seen here in May with full work-up including negative CTA. He has subsequently followed up with primary care and had a Holter monitor. Holter monitor was normal. Patient symptoms attributed to anxiety. He now does see mental health. He had to stop working because of stress. Today he developed chest pressure at around 4 PM. He has been constant since then. He has intermittent chest pain for a couple of minutes. It is nonradiating. There is no shortness of breath, diaphoresis, nausea. He has not been ill. He has had no fever, cough, shortness of breath, loss of taste or smell. There has been no Covid exposures. He has no leg pain or leg swelling. He did receive aspirin by EMS. At this point he reports having 1 out of 10 pressure. Related Data Home Medications Medication Instructions Recorded Confirmed albuterol sulfate 90 mcg/actuation 2 puff INHALATION Q6H PRN #18 gm 08/04/19 08/22/20 aerosol inhaler montelukast 10 mg tablet 10 mg PO QHS #30 tab 11/16/19 08/22/20 esomeprazole magnesium 40 mg 40 mg PO DAILY #90 cap 01/12/20 08/22/20 capsule,delayed release cyclobenzaprine 10 mg tablet 10 mg PO TID PRN #90 tab 05/03/20 08/22/20 metoprolol succinate 25 mg 25 mg PO DAILY #90 tab 06/10/20 08/22/20 tablet,extended release 24 hr fluoxetine 40 mg capsule 40 mg PO DAILY #90 cap 07/16/20 08/22/20 naproxen 500 mg tablet 500 mg PO BID #60 tab 08/09/20 08/22/20 Previous Rx's Medication Instructions Recorded albuterol sulfate 90 mcg/actuation 2 puff INHALATION Q6H PRN #18 gm 01/10/20 aerosol inhaler montelukast 10 mg tablet 10 mg PO QHS #30 tab 11/16/19 esomeprazole magnesium 40 mg 40 mg PO DAILY #90 cap 01/12/20 capsule,delayed release cyclobenzaprine 10 mg tablet 10 mg PO TID PRN #90 tab 05/03/20 metoprolol succinate 25 mg 25 mg PO DAILY #90 tab 06/10/20 tablet,extended release 24 hr fluoxetine 40 mg capsule 40 mg PO DAILY #90 cap 07/16/20 naproxen 500 mg tablet 500 mg PO BID #60 tab 08/09/20 Allergies Allergy/AdvReac Type Severity Reaction Status Date / Time No Known Allergies Allergy Verified 08/20/20 10:40 General FAITH: 2 Review of Systems Narrative: As documented in HPI otherwise negative as below. Const: no fever, chills, weakness Resp: no cough, SOB, pleuritic pain CV: no diaphoresis, edema, syncope GI: no abdominal pain, nausea, vomiting, diarrhea Neuro: no headache, numbness, focal weakness, confusion PFSH Medical History Asthma Depression Dyspepsia Elevated fasting glucose Essential hypertension Family history of colon cancer Family history of pancreatic cancer Hiatal hernia with gastroesophageal reflux Insomnia Leg length discrepancy Scoliosis Surgical History No significant past surgical history Family History Maternal Grandmother Pancreatic cancer Diabetes Paternal Grandmother Diabetes Father Heart disease Hypertension Mother Colon cancer Social History Smoking/Tobacco Use Status: Current every day Tobacco Type: cigarettes Years smoked: 10 Tobacco: How many years used: 10 Second Hand Exposure: No Smoking risk assessment performed?: Yes Alcohol Intake: never Drug use: Never Substance use type: does not use Adopted: Yes Caregiver/Support person: No Foster care: Yes Household members: significant other Housing: apartment Number of Children: 0 Communication Needs: None Education Level: high school Do you need help understanding health information?: Never current occupation: [employer] Pets and animals: Yes Pets and animals: cat(s) and bird(s) Sexually active: No Do you think of yourself as: Decline to Provide Current gender identity: male What is your relationship status?: living with partner How often do you get together with friends or relatives?: twice per week How often do you attend restorationism or baptist services?: decline to answer Do you belong to any clubs or organized social groups?: no Panel score (0-1 are the most socially isolated patients): 1 What type of physical activity do you participate in: irregular exercise Duration: 15-30 minutes/day Frequency: 3-4 times per week Stefanie/Jewish: No preference Special stefanie needs: No Agree to transfusion: Yes Seatbelt use: sometimes Helmet use: No 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 HEENT: NC/AT. Normal facial exam. Eyes: Normal conjunctiva and sclera. Neck: Supple. Trachea midline. Lungs: Normal respiratory effort. Lungs are clear. Cor: RRR without murmur/gallop. Good radial pulses. GI: Soft. NT/ND. No guarding or rebound. Neuro: A+O x 3. Normal speech, mentation, gait. Cranial nerves II - XII grossly intact. No gross motor or sensory deficit. Ext: No C/C/E. No calf tenderness. Skin: Warm and dry without rash.
[2020-08-22] MEDS: LORazepam 2 MG/ML VIAL 0.5 MG IVP (22:47)
--- NOTE | 2020-08-22 22:57 | DI.RAD_ITS ---
EXAM: XR CHEST 2V PA LATERAL CLINICAL HISTORY: chest pain. TECHNIQUE: 2D digital imaging was performed. COMPARISON: CR XR CHEST 2V PA LATERAL from 05/22/2020 FINDINGS: Heart size is normal. The mediastinum is not widened. Right lung is clear. There is platelike atelectasis in the left lung base. This is in the lingular segment. This was not evident on 05/22/2020 IMPRESSION: There is platelike atelectasis in the lingular segment of the left lung.No confluent infiltrates nor pleural effusions evident. DATA REPOSITORY: RADIATION DOSE DELIVERED:
--- NOTE | 2020-08-22 23:22 | DI.VRAD_ITS ---
PROCEDURE INFORMATION: Exam: XR Chest, 2 Views Exam date and time: 08/22/2020 10:42 PM Age: 30 years old Clinical indication: Chest pain; Type not specified TECHNIQUE: Imaging protocol: XR of the chest Views: 2 views. COMPARISON: CR XR CHEST 2V PA LATERAL 05/22/2020 10:49 AM FINDINGS: Lungs: No pulmonary consolidation is seen. Pleural spaces: No pleural effusion or pneumothorax is demonstrated. Heart/Mediastinum: Heart size is normal. The mediastinal contours appear normal. Bones/joints: The visualized bony structures appear grossly intact, as seen. IMPRESSION: No active disease is seen in the chest. Dictated and Authenticated by: Barron Luis MD. Ordering:KARIN Shaw MD
[2020-08-22 23:31] LABS: Troponin I < 0.05 ng/mL (<0.06)
== END 2020-08-23 | disposition home or self-care (01) ==
PROVIDERS: Emergency Provider Emergency Medicine; PCP Family Medicine
DX: M79.10 Myalgia, unspecified site (principal); I10 Essential (primary) hypertension; R53.1 Weakness; F41.8 Other specified anxiety disorders; E11.9 Type 2 diabetes mellitus without complications; Z79.4 Long term (current) use of insulin; F20.9 Schizophrenia, unspecified; J44.9 Chronic obstructive pulmonary disease, unspecified; F17.210 Nicotine dependence, cigarettes, uncomplicated
CPT/HCPCS: 36415; 93005; 99284; 71046; 84484; 93010; 99283; J2060

== ENCOUNTER 2020-08-23 03:04 | Outpatient (CLI) | payer MEDICAID, SELFPAY ==
--- NOTE | 2020-08-23 13:46 | DI.RAD_ITS ---
EXAM: XR SHOULDER RT COMPLETE 2+V CLINICAL HISTORY: Posterior right shoulder pain,M25.511. TECHNIQUE: 2D digital imaging was performed. COMPARISON: No exams were available for comparison FINDINGS: There is no evidence of fracture or dislocation nor soft tissue calcifications. No degenerative hernandez ges. Bone density normal. No osseous lesions. IMPRESSION: No significant radiograph findings in the right shoulder. DATA REPOSITORY: RADIATION DOSE DELIVERED:
== END 2020-08-23 03:24 ==
PROVIDERS: PCP Family Medicine; Visit Provider Family Medicine
DX: M25.511 Pain in right shoulder (principal)
CPT/HCPCS: 73030

== ENCOUNTER 2020-08-23 11:55 | Emergency (ER) | payer MEDICAID, SELFPAY ==
--- NOTE | 2020-08-23 11:45 | RT.EKG_ITS ---
APPROVED REPORT Exam: Resting ECG Patient Location: E HR:79 bpm ECG Measurements Heart Rate 79 AXIS MS 153 P 52 QRSd 84 QRS 54 QT 359 T 72 QTc 412 Conclusion Sinus rhythm...normal P axis, V-rate 60- 99 I have reviewed and interpreted ECG and agree with software generated interpretation.
--- NOTE | 2020-08-23 11:54 | ED.GENADUL_ITS ---
Discharge Plan Disposition Patient Disposition: HOME Condition: Good Discharge Details Clinical Impression: Chest pain, Hypokalemia, Elevated liver enzymes Primary Care Provider: Tony Dao ED Provider: Becca Antunez Home Meds and New Rx's Prescriptions: Continued albuterol sulfate [Ventolin HFA] 90 mcg/actuation HFA aerosol inhaler 2 puff inhalation Q6H PRN (Reason: shortness of breath or wheezing) Qty: 18 RF: 6 fluoxetine 40 mg capsule 40 mg PO DAILY Qty: 90 RF: 0 cyclobenzaprine 10 mg tablet 10 mg PO TID PRN (Reason: muscle spasm) Qty: 90 RF: 2 metoprolol succinate 25 mg tablet extended release 24 hr 25 mg PO DAILY Qty: 90 RF: 0 montelukast [Singulair] 10 mg tablet 10 mg PO QHS Qty: 30 RF: 6 esomeprazole magnesium [Nexium] 40 mg capsule,delayed release(DR/EC) 40 mg PO DAILY Qty: 90 RF: 3 naproxen 500 mg tablet 500 mg PO BID Qty: 60 RF: 1 Discharge Instructions Instructions: Chest Pain (ED), Hypokalemia (ED) Additional Instructions: Encourage water intake. You may use Tylenol as needed for discomfort. Please keep your upcoming appointment with your primary care. Your EKG and repeat cardiac work-up is within normal limits here. As we discussed, your liver enzymes are slightly elevated and your potassium is low. Please discuss this further with your primary care. You were given potassium supplementation here. If you develop any new or worsening symptoms please seek care urgently once again. Referrals: Tony Dao DO [Primary Care Provider] - Discharge Data Discharge Date/Time-TO BE ENTERED AT DEPARTURE: 08/23/20 13:30 Medical Decision Making Patient is a pleasant 30 year old male. Patient is brought in via EMS with c/c of chest discomfort. He was seen here last night for the same. Patient states that symptoms have not resolve. Feels having been intermittent. He states he slept well but noted the same sensation today. Does not link this with exertion. No worsening of symptoms. Patient was given aspirin prior to arrival. Is not currently having pain. No personal or familial hx of CAD or early cardiac pathology. On exam, patient appears anxious but otherwise WNL. PERC negative. I have low suspicion for ACS but can reevaluate with troponin. He had one last night. He does not link with food so unlikely to be GI source but this is possible. No crepitus or change to suggest emergent GI pathology. Hx and exam is not suggestive of dissection. He does not relate to movement or have pain with movement. ECG reviewed by physician with no acute ischemic changes noted. NSR. Patient asympatomic, no immediate medical intervention preformed. Labs reviewed. Notable for potassium of 3.1, we will replenish this orally. AST and ALT are both slightly elevated. He denies ETOH use. He will discuss this furthe rwith his PCP. Patient has an appointment this afternoon and would like to attend. At this time, no emergent pathology of his recurrent CP is identified. Patient and I did discuss that he appeared anxious. he responded well yesterday to ativan. He states that he is unemployed and often does not leave the house secondary to COVID. I encouraged at least daily walks outside and to reach out to a therapist. He and I discussed return precautions at length. I encouraged f/u wi th PCP. All of his quewstions and concerns were addressed, he is in agrement with this plan. HPI General Mode of arrival: EMS . Date/Time Provider Initiated Documentation: 08/23/20 12:03 . Limitations to Documentation: no limitations . Information obtained by: patient, RN notes reviewed and old records reviewed . History of Present Illness 30 year old M presents to the emergency department with the chief complaint of chest pain, described as mild (currently resolved), Quality is described as other (pressure), and is localized to the chest. Patient reports no radiation. Patient started experiencing this unknown and it has been intermittent. No relieving factors improve symptom(s), No exacerbating factors reported . Patient notes chest pain, cough (intermittent, associates with asthma) and shortness of breath (intermittent, associates with asthma); denies diaphoresis, fever/chills, headaches, loss of appetite, nausea/vomiting, rash, syncope and weakness. Patient did receive the following treatments prior to arrival, Aspirin (delivered via EMS) Related Data Home Medications Medication Instructions Recorded Confirmed albuterol sulfate 90 mcg/actuation 2 puff INHALATION Q6H PRN #18 gm 08/04/19 08/23/20 aerosol inhaler montelukast 10 mg tablet 10 mg PO QHS #30 tab 11/16/19 08/23/20 esomeprazole magnesium 40 mg 40 mg PO DAILY #90 cap 01/12/20 08/23/20 capsule,delayed release cyclobenzaprine 10 mg tablet 10 mg PO TID PRN #90 tab 05/03/20 08/23/20 metoprolol succinate 25 mg 25 mg PO DAILY #90 tab 06/10/20 08/23/20 tablet,extended release 24 hr fluoxetine 40 mg capsule 40 mg PO DAILY #90 cap 07/16/20 08/23/20 naproxen 500 mg tablet 500 mg PO BID #60 tab 08/09/20 08/23/20 Previous Rx's Medication Instructions Recorded albuterol sulfate 90 mcg/actuation 2 puff INHALATION Q6H PRN #18 gm 08/04/19 aerosol inhaler montelukast 10 mg tablet 10 mg PO QHS #30 tab 11/16/19 esomeprazole magnesium 40 mg 40 mg PO DAILY #90 cap 01/12/20 capsule,delayed release cyclobenzaprine 10 mg tablet 10 mg PO TID PRN #90 tab 05/03/20 metoprolol succinate 25 mg 25 mg PO DAILY #90 tab 06/10/20 tablet,extended release 24 hr fluoxetine 40 mg capsule 40 mg PO DAILY #90 cap 07/16/20 naproxen 500 mg tablet 500 mg PO BID #60 tab 08/09/20 Allergies Allergy/AdvReac Type Severity Reaction Status Date / Time No Known Allergies Allergy Verified 08/23/20 12:00 General FAITH: 2 Review of Systems Constitutional Constitutional: Reports as per HPI, Denies chills, Denies fever(s), Denies headache(s), Denies lethargy and Denies poor appetite Eyes Eyes: Denies change in vision ENT Ears, Nose, Mouth, and Throat: Denies dizziness and Denies headache(s) Cardiovascular Cardiovascular: Reports as per HPI, Denies dyspnea and Denies dyspnea on exertion Respiratory Respiratory: Reports as per HPI, Denies chest congestion, Denies cough, Denies pain on inspiration, Denies pain with cough, Denies dyspnea, Denies dyspnea on exertion and Denies wheezing Gastrointestinal Gastrointestinal: Reports as per HPI, Denies abdominal pain, Denies diarrhea, Denies nausea and Denies vomiting Genitourinary Genitourinary: Denies system reviewed and no additional complaints, except as documented (denies change in urinary habits) Musculoskeletal Musculoskeletal: Reports as per HPI and Denies back pain Integumentary/Breasts Skin/Breast: Reports as per HPI and Denies rash Neurologic Neurologic: Reports as per HPI, Denies dizziness and Denies headache(s) Allergic/Immunologic Allergic/Immunologic: Denies wheezing [facility] Medical History Asthma Depression Dyspepsia Elevated fasting glucose Essential hypertension Family history of colon cancer Family history of pancreatic cancer Hiatal hernia with gastroesophageal reflux Insomnia Leg length discrepancy Scoliosis Surgical History No significant past surgical history Family History Maternal Grandmother Pancreatic cancer Diabetes Paternal Grandmother Diabetes Father Heart disease Hypertension Mother Colon cancer Social History Smoking/Tobacco Use Status: Current every day Tobacco Type: cigarettes Years smoked: 10 Tobacco: How many years used: 10 Second Hand Exposure: No Smoking risk assessment performed?: Yes Alcohol Intake: never Drug use: Never Substance use type: does not use Adopted: Yes Caregiver/Support person: No Foster care: Yes Household members: significant other Housing: apartment Number of Children: 0 Communication Needs: None Education Level: high school Do you need help understanding health information?: Never 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, [employer] Pets and animals: Yes Pets and animals: cat(s) and bird(s) Sexually active: No Do you think of yourself as: Decline to Provide Current gender identity: male What is your relationship status?: living with partner How often do you get together with friends or relatives?: twice per week How often do you attend restoration or adventist services?: decline to answer Do you belong to any clubs or organized social groups?: no Panel score (0-1 are the most socially isolated patients): 1 What type of physical activity do you participate in: irregular exercise Duration: 15-30 minutes/day Frequency: 3-4 times per week Stefanie/Hinduism: No preference Special stefanie needs: No Agree to transfusion: Yes Seatbelt use: sometimes Helmet use: No 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 Working smoke detector in home: Yes Fire extinguisher in home: Yes Carbon monox detector in home: Yes Firearms in home: No Do you feel safe at home: Yes Do you feel safe in your relationship?: Yes Exam Const General: cooperative, healthy appearing, comfortable, no acute distress and well developed Nutritional Appearance: average body habitus and well nourished Orientation: alert, awake and oriented x3 [facility]: normal to inspection Ears: hearing grossly normal bilaterally Mouth: moist mucous membranes Chest Chest: normal inspection of the chest, normal palpation of entire chest wall and no crepitus Resp Effort & Inspection: normal respiratory effort, able to speak in complete sentences and no respiratory distress Auscultation: clear to auscultation bilaterally, no rales, no rhonchi and no wheezes Cardio Rate: regular rate Rhythm: regular rhythm Heart Sounds: S1 normal and S2 normal GI Inspection: normal to inspection, no edema and non-distended Palpation: soft, no hepatosplenomegaly, not firm, no guarding, not rigid and nontender Auscultation: normal bowel sounds Back/Spine/Pelvis Back: no CVA tenderness Thoracic/Lumbar Spine: thoracic and lumbar spine normal to inspection Skin General skin exam: no rashes or lesions noted Trauma: no lacerations or abrasions Neuro General: patient alert, patient awake and patient oriented x3 Cognition: normal cognition Speech: speech normal Gait: normal gait Extrem General: normal to inspection, capillary refill normal, no pedal edema, no calf tenderness and normal gait Psych Appearance: grossly normal and well kempt Mental Status: mental status grossly normal Speech and Movement: speech and movement normal
[2020-08-23 11:57] VITALS: BP 121/63; PULSE 91; RESP 27; TEMP 36.8; O2SAT 98
[2020-08-23 12:09] VITALS: RESP 24
[2020-08-23 12:29] LABS: Abs Immature Grans 0.03 10^3/uL (0.0-0.06); Absolute Basophil Count 0.05 10^3/uL (0.0-0.2); Absolute Lymphocyte Count 1.56 10^3/uL (1.2-3.4); Absolute Monocyte Count 0.38 10^3/uL (0.1-0.8); Absolute Neutrophil Count 4.27 10^3/uL (1.2-6.7); Basophils % 0.8; Eosinophils % 3.1; HCT 45.8 % (40.0-50.0); HGB 16.2 g/dL (13.5-17.5); Immature Grans % 0.5; MCH 29.9 pg (27.0-33.0); MCHC 35.4 % (32.0-36.0); MCV 84.7 fL (80-95); MPV 10.5 fL (8.0-11.0); Monocytes % 5.9; Neutrophils % 65.7; Nucleated RBC 0 %; Platelet Count 265 10^3/uL (130-400); RBC 5.41 10^6/uL (4.36-5.78); RDW 12.6 % (11.8-14.1); RDW-SD 38.7 fL; WBC 6.49 10^3/uL (4.4-10.8)
[2020-08-23 12:59] LABS: ALT 110 U/L (16-63); AST 41 U/L (15-37); Alkaline Phosphatase 75 U/L (46-116); Anion Gap 9.2 mmol/L (3-11); BUN 19 mg/dL (7-18); Bilirubin, Total 0.9 mg/dL (0.2-1.0); CO2 24.8 mmol/L (21.0-32.0); CREATININE 1.2 mg/dL (0.70-1.30); Calcium 9.1 mg/dL (8.5-10.1); Chloride 104 mmol/L (98-107); Glucose 129 mg/dL (74-106); Magnesium 1.8 mg/dL (1.8-2.4); Potassium 3.1 mmol/L (3.5-5.1); Sodium 138 mmol/L (136-145); TSH (W/Ref FT4) 1.75 uIU/mL (0.36-3.74); Total Protein 7.1 g/dL (6.4-8.2)
[2020-08-23 13:01] LABS: Troponin I < 0.05 ng/mL (<0.06)
[2020-08-23] MEDS: Potassium Chloride 20 MEQ TABCR 40 MEQ PO (13:29)
== END 2020-08-23 13:30 | disposition home or self-care (01) ==
PROVIDERS: Emergency Provider Physician Assistant; PCP Family Medicine
DX: R07.89 Other chest pain (principal); E87.6 Hypokalemia; R74.01 Elevation of levels of liver transaminase levels; F41.8 Other specified anxiety disorders; I10 Essential (primary) hypertension; F17.210 Nicotine dependence, cigarettes, uncomplicated
CPT/HCPCS: 36415; 80053; 93005; 99284; 83735; 84443; 84484; 85025; 93010; 99285

== ENCOUNTER 2020-08-28 12:20 | Emergency (ER) | payer MEDICAID, SELFPAY ==
[2020-08-28] VITALS (10 sets, daily range): BP systolic 105–118; BP diastolic 52–63; PULSE 71–85; RESP 12–25; TEMP 36.9; O2SAT 90–96
--- NOTE | 2020-08-28 12:15 | RT.EKG_ITS ---
APPROVED REPORT Exam: Resting ECG Patient Location: E HR:75 bpm ECG Measurements Heart Rate 75 AXIS NE 158 P 43 QRSd 82 QRS 44 QT 373 T 71 QTc 417 Conclusion Sinus rhythm...normal P axis, V-rate 60- 99
--- NOTE | 2020-08-28 12:44 | W.ED.GENAD ---
Discharge Plan Disposition Patient Disposition: HOME Condition: Improving Discharge Details Clinical Impression: Hematochezia Primary Care Provider: Tony Dao ED Provider: Kleber Barajas Home Meds and New Rx's Prescriptions: Continued albuterol sulfate [Ventolin HFA] 90 mcg/actuation HFA aerosol inhaler 2 puff inhalation Q6H PRN (Reason: shortness of breath or wheezing) Qty: 18 RF: 6 fluoxetine 40 mg capsule 40 mg PO DAILY Qty: 90 RF: 0 cyclobenzaprine 10 mg tablet 10 mg PO TID PRN (Reason: muscle spasm) Qty: 90 RF: 2 metoprolol succinate 25 mg tablet extended release 24 hr 25 mg PO DAILY Qty: 90 RF: 3 montelukast [Singulair] 10 mg tablet 10 mg PO QHS Qty: 30 RF: 6 esomeprazole magnesium [Nexium] 40 mg capsule,delayed release(DR/EC) 40 mg PO DAILY Qty: 90 RF: 3 naproxen 500 mg tablet 500 mg PO PRN PRNRF: 0 Discharge Instructions Additional Instructions: Follow-up tomorrow as planned. Return to the ER for any acute concerns. Your liver enzymes have been slightly elevated on the last 2 laboratory checks and should be followed up in 2 to 3 weeks time with your regular doctor. Continue your regularly prescribed medications. We will make you a follow-up appointment in clinic for recheck. Medical Decision Making This is a 30-year-old male who presents via EMS. He has 2 complaints. First is that he had transient substernal discomfort that lasted minutes at home and dissipated on its own. Second is he had intermittent episodes of hematochezia for which she has a planned outpatient surgical appmnt tomorrow and underwent digital rectal exam in the office yesterday. States he has pending outpatient lab orders which have not yet been completed. He arrives to the ER well-appearing in no acute distress and without complaint. His screening EKG was performed and unremarkable. Laboratory testing obtained. CBC is reassuring with a white count 6.9, hematocrit 47, platelets 272. Chemistries with slightly elevated AST of 45, ALT 116. Similar to previous. Total bili is normal at 0.9. Given lack of symptoms at this time and preplanned follow-up in surgery tomorrow, with normal hematocrit today, I do feel the patient is stable for discharge asymptomatic and improved. HPI General Mode of arrival: ambulatory. Date/Time Provider Initiated Documentation: 08/28/20 12:26. Limitations to Documentation: no limitations. Information obtained by: patient. History of Present Illness 30 year old M presents to the emergency department with the chief complaint of Transient discomfort at home, now resolved, described as similar to prior episodes, and is localized to the chest. Patient reports no radiation. Patient started experiencing this minute(s) and it has been now resolved. No exacerbating factors reported . Patient notes other (Reports bright red bloody stool and plan for colonoscopy tomorrow). Patient did receive the following treatments prior to arrival, none Related Data Home Medications Medication Instructions Recorded Confirmed albuterol sulfate 90 mcg/actuation 2 puff INHALATION Q6H PRN #18 gm 08/04/19 08/28/20 aerosol inhaler montelukast 10 mg tablet 10 mg PO QHS #30 tab 11/16/19 08/28/20 esomeprazole magnesium 40 mg 40 mg PO DAILY #90 cap 01/12/20 08/28/20 capsule,delayed release cyclobenzaprine 10 mg tablet 10 mg PO TID PRN #90 tab 05/03/20 08/28/20 fluoxetine 40 mg capsule 40 mg PO DAILY #90 cap 07/16/20 08/28/20 metoprolol succinate 25 mg 25 mg PO DAILY #90 tab 08/27/20 08/28/20 tablet,extended release 24 hr naproxen 500 mg PO PRN PRN 08/28/20 08/28/20 Previous Rx's Medication Instructions Recorded albuterol sulfate 90 mcg/actuation 2 puff INHALATION Q6H PRN #18 gm 08/04/19 aerosol inhaler montelukast 10 mg tablet 10 mg PO QHS #30 tab 11/16/19 esomeprazole magnesium 40 mg 40 mg PO DAILY #90 cap 01/12/20 capsule,delayed release cyclobenzaprine 10 mg tablet 10 mg PO TID PRN #90 tab 05/03/20 fluoxetine 40 mg capsule 40 mg PO DAILY #90 cap 07/16/20 metoprolol succinate 25 mg 25 mg PO DAILY #90 tab 08/27/20 tablet,extended release 24 hr Allergies Allergy/AdvReac Type Severity Reaction Status Date / Time No Known Allergies Allergy Verified 08/28/20 12:36 General Stated Complaint: Chest Pain FAITH: 2 Review of Systems Narrative: No complaints at this time. 8 systems reviewed and otherwise negative. [facility] Medical History Asthma BRBPR (bright red blood per rectum) Depression Dyspepsia Elevated fasting glucose Essential hypertension Family history of colon cancer Family history of pancreatic cancer Hiatal hernia with gastroesophageal reflux Insomnia Leg length discrepancy Scoliosis Surgical History No significant past surgical history Family History Maternal Grandmother Pancreatic cancer Diabetes Paternal Grandmother Diabetes Father Heart disease Hypertension Mother Colon cancer Social History Smoking/Tobacco Use Status: Current every day Tobacco Type: cigarettes Tobacco: How many years used: 10 Second Hand Exposure: No Smoking risk assessment performed?: Yes Alcohol Intake: never Drug use: Never Substance use type: does not use Adopted: Yes Caregiver/Support person: No Foster care: Yes Household members: significant other Housing: apartment Number of Children: 0 Communication Needs: None Education Level: high school Do you need help understanding health information?: Never current occupation: not working due to stress Pets and animals: Yes Pets and animals: cat(s) and bird(s) Sexually active: No Do you think of yourself as: Decline to Provide Current gender identity: male What is your relationship status?: living with partner How often do you get together with friends or relatives?: twice per week How often do you attend taoist or hoahaoism services?: decline to answer Do you belong to any clubs or organized social groups?: no Panel score (0-1 are the most socially isolated patients): 1 What type of physical activity do you participate in: walking Frequency: 1-2 times per week Stefanie/Christianity: No preference Special stefanie needs: No Agree to transfusion: Yes Seatbelt use: sometimes Helmet use: No Drive intox or ride w/intox stage driver: No Working smoke detector in home: Yes Fire extinguisher in home: Yes Carbon monox detector in home: Yes Firearms in home: No Do you feel safe at home: Yes Do you feel safe in your relationship?: Yes Exam Narrative Exam Narrative: GEN: awake, alert, oriented 3. Pleasant, well groomed, interactive. HEAD: Normocephalic, atraumatic ENT: Mucous membranes moist, oropharynx unremarkable, External ear exam unremarkable EYES: PERRL, EOMI NECK: Full ROM, no GARY, no menigismus CHEST/RESP: Nontender, clear to auscultation bilateral, no wheeze/rhonchi/rales CARDIOVASCULAR: RRR, no murmur, rub qian. 2+ Rad pulse bilateral ABDOMEN: Soft, nontender, no mass. +Bowel sounds EXT: Full ROM, no edema, no rash Neuro: Grossly normal neurologic exam, conversant, interactive. Psych: Speech fluent, thoughts congruent, affect normal Course Vital Signs Vital signs: Vital Signs Temperature 36.9 C 08/28/20 12:26 Pulse 77 08/28/20 12:26 Respiratory Rate 12 08/28/20 12:26 Blood Pressure 114/55 L 08/28/20 12:26 Pulse Oximetry 96 08/28/20 12:26 Temperature 36.9 C 08/28/20 12:26 Temperature Source Tympanic 08/28/20 12:26 Pulse 77 08/28/20 12:26 Respiratory Rate 12 08/28/20 12:26 Respiratory Effort Non-Labored 08/28/20 12:32 Blood Pressure 114/55 L 08/28/20 12:26 Blood Pressure Position Supine 08/28/20 12:26 Pulse Oximetry 96 08/28/20 12:26 Oxygen Delivery Method Room Air 08/28/20 12:26 Oxygen Flow Rate 0 08/28/20 12:26 Pain Level 0 08/28/20 12:26
[2020-08-28 12:52] LABS: Abs Immature Grans 0.01 10^3/uL (0.0-0.06); Absolute Basophil Count 0.04 10^3/uL (0.0-0.2); Absolute Eosinophil Count 0.16 10^3/uL (0.0-0.7); Absolute Lymphocyte Count 1.09 10^3/uL (1.2-3.4); Absolute Monocyte Count 0.55 10^3/uL (0.1-0.8); Absolute Neutrophil Count 5.09 10^3/uL (1.2-6.7); Basophils % 0.6; Eosinophils % 2.3; HCT 47.6 % (40.0-50.0); Immature Grans % 0.1; Lymphocytes % 15.7; MCH 30.2 pg (27.0-33.0); MCHC 35.7 % (32.0-36.0); MCV 84.7 fL (80-95); MPV 10.3 fL (8.0-11.0); Monocytes % 7.9; Neutrophils % 73.4; Nucleated RBC 0 %; Platelet Count 272 10^3/uL (130-400); RBC 5.62 10^6/uL (4.36-5.78); RDW 12.4 % (11.8-14.1); RDW-SD 37.9 fL; WBC 6.94 10^3/uL (4.4-10.8)
[2020-08-28 13:17] LABS: ALT 116 U/L (16-63); AST 45 U/L (15-37); Albumin 4.1 g/dL (3.4-5.0); Alkaline Phosphatase 88 U/L (46-116); Anion Gap 12.5 mmol/L (3-11); BUN 19 mg/dL (7-18); Bilirubin, Total 0.9 mg/dL (0.2-1.0); CO2 23.5 mmol/L (21.0-32.0); Calcium 8.9 mg/dL (8.5-10.1); Chloride 105 mmol/L (98-107); Glucose 127 mg/dL (74-106); Potassium 3.5 mmol/L (3.5-5.1); Sodium 141 mmol/L (136-145); Total Protein 7.5 g/dL (6.4-8.2)
== END 2020-08-28 13:49 | disposition home or self-care (01) ==
LOC: ER 13:38
PROVIDERS: Emergency Provider Emergency Medicine; PCP Family Medicine
DX: K92.1 Melena (principal); R07.9 Chest pain, unspecified
CPT/HCPCS: 36415; 80053; 93005; 99284; 85025; 93010

== ENCOUNTER 2020-09-08 10:50 | Emergency (ER) | payer MEDICAID, SELFPAY ==
[2020-09-08 10:53] VITALS: BP 124/68; PULSE 70; RESP 18; TEMP 36.6; O2SAT 96
--- NOTE | 2020-09-08 10:57 | W.ED.GENAD ---
Discharge Plan Disposition Patient Disposition: HOME Condition: Stable Discharge Details Clinical Impression: Abdominal pain Primary Care Provider: Tony Dao ED Provider: Jamila Haynes Home Meds and New Rx's Prescriptions: Continued albuterol sulfate [Ventolin HFA] 90 mcg/actuation HFA aerosol inhaler 2 puff inhalation Q6H PRN (Reason: shortness of breath or wheezing) Qty: 18 RF: 6 fluoxetine 40 mg capsule 40 mg PO DAILY Qty: 90 RF: 0 cyclobenzaprine 10 mg tablet 10 mg PO TID PRN (Reason: muscle spasm) Qty: 90 RF: 2 metoprolol succinate 25 mg tablet extended release 24 hr 25 mg PO DAILY Qty: 90 RF: 3 polyethylene glycol 3350 17 gram/dose powder 238 g PO ONCE Qty: 238 RF: 0 bisacodyl [Dulcolax (bisacodyl)] 5 mg tablet,delayed release (DR/EC) 5 mg PO ONCE Qty: 4 RF: 0 montelukast [Singulair] 10 mg tablet 10 mg PO QHS Qty: 30 RF: 6 esomeprazole magnesium [Nexium] 40 mg capsule,delayed release(DR/EC) 40 mg PO DAILY Qty: 90 RF: 3 nitroglycerin 0.4 mg tablet, sublingual 0.4 mg sublingual Q5M PRN (Reason: chest pain) Qty: 30 RF: 0 naproxen 500 mg tablet 500 mg PO PRN PRNRF: 0 Discharge Instructions Instructions: Abdominal Pain (ED), Colitis (ED) Additional Instructions: Follow up with primary care provider in 3-5 days. Return to ED sooner if any worsening or concerns. Increase oral fluids. Try clear liquids for the next 1 to 2 days, bland diet as tolerated thereafter. Stay away from spicy foods, fried or fatty foods, or dairy. Keep your previously scheduled colonoscopy appointment. Referrals: Tony Dao DO [Primary Care Provider] - Discharge Data Discharge Date/Time-TO BE ENTERED AT DEPARTURE: 09/08/20 12:58 Medical Decision Making 30-year-old male presents to the ED via EMS chief complaint of right lower quadrant abdominal pain, which began this morning. He denies any vomiting diarrhea no fever no chills. On initial exam abdomen is soft, nontender with palpation right lower quadrant but during further exam with iliopsoas sign he states that he does have left upper quadrant abdominal pain. He has a past medical history of asthma, depression, hiatal hernia with GERD, hypertension, chest pain anxiety, hematochezia, is a family history of colon cancer and family history of pancreatic cancer. He is scheduled for an outpatient colonoscopy next Wednesday. He is a current everyday smoker denies any alcohol or drugs. Initial work-up ordered including CBC, CMP, lipase, urinalysis, CT abdomen pelvis with contrast to rule out appendectomy. CBC is largely within normal limits, CMP shows anion gap 11.3, glucose 116, ALT 92 urinalysis is largely within normal limits. The V-rad interpretation IMPRESSION: 1. Normal appearance of the appendix. 2. Question mild wall thickening of portions of the ascending, transverse and descending colon. Correlate as to any potential non-specific colitis. 3. 1.4 cm dense or enhancing lesion in the liver, new as compared with 09/22/14, further evaluation and/or followup to be determined at time of final read depending on availability of any additional interval imaging and as per institutional protocol. 4. Persistent small fat containing umbilical hernia. 5. Small new fat containing bilateral inguinal hernias. Thank you for allowing us to participate in the care of your patient. Dictated and Authenticated by: Kush Gunn MD 1220: Surgery paged. Dr. Cervantes recommend continued follow-up with colonoscopy as previously scheduled. Discussed results with patient and recommendation for follow-up, verbalized understanding. Patient remained hemodynamically stable throughout stay, discuss strict return instructions with patient, verbalized understanding. This text was generated using [employer] system, please disregard any oddities of phrase or misspellings. HPI General Mode of arrival: EMS. Date/Time Provider Initiated Documentation: 09/08/20 10:57. Limitations to Documentation: no limitations. Information obtained by: patient. HPI Narrative: 30-year-old male presents to the ED via EMS chief complaint of right lower quadrant abdominal pain, which began this morning. He denies any vomiting diarrhea no fever no chills. On initial exam abdomen is soft, nontender with palpation right lower quadrant but during further exam with iliopsoas sign he states that he does have left upper quadrant abdominal pain. He has a past medical history of asthma, depression, hiatal hernia with GERD, hypertension, chest pain anxiety, hematochezia, is a family history of colon cancer and family history of pancreatic cancer. He is scheduled for an outpatient colonoscopy next Wednesday. He is a current everyday smoker denies any alcohol or drugs. Related Data Home Medications Medication Instructions Recorded Confirmed albuterol sulfate 90 mcg/actuation 2 puff INHALATION Q6H PRN #18 gm 08/04/19 09/08/20 aerosol inhaler montelukast 10 mg tablet 10 mg PO QHS #30 tab 11/16/19 09/08/20 esomeprazole magnesium 40 mg 40 mg PO DAILY #90 cap 01/12/20 09/08/20 capsule,delayed release cyclobenzaprine 10 mg tablet 10 mg PO TID PRN #90 tab 05/03/20 09/08/20 fluoxetine 40 mg capsule 40 mg PO DAILY #90 cap 07/16/20 09/08/20 metoprolol succinate 25 mg 25 mg PO DAILY #90 tab 08/27/20 09/08/20 tablet,extended release 24 hr naproxen 500 mg PO PRN PRN 08/28/20 09/08/20 nitroglycerin 0.4 mg sublingual 0.4 mg SUBLINGUAL Q5M PRN #30 tab 08/29/20 09/08/20 tablet bisacodyl 5 mg tablet,delayed 5 mg PO ONCE #4 tab 09/06/20 09/08/20 release polyethylene glycol 3350 17 238 g PO ONCE #238 g 09/06/20 09/08/20 gram/dose oral powder Previous Rx's Medication Instructions Recorded albuterol sulfate 90 mcg/actuation 2 puff INHALATION Q6H PRN #18 gm 08/04/19 aerosol inhaler montelukast 10 mg tablet 10 mg PO QHS #30 tab 11/16/19 esomeprazole magnesium 40 mg 40 mg PO DAILY #90 cap 01/12/20 capsule,delayed release cyclobenzaprine 10 mg tablet 10 mg PO TID PRN #90 tab 05/03/20 fluoxetine 40 mg capsule 40 mg PO DAILY #90 cap 07/16/20 metoprolol succinate 25 mg 25 mg PO DAILY #90 tab 08/27/20 tablet,extended release 24 hr nitroglycerin 0.4 mg sublingual 0.4 mg SUBLINGUAL Q5M PRN #30 tab 08/29/20 tablet bisacodyl 5 mg tablet,delayed 5 mg PO ONCE #4 tab 09/06/20 release polyethylene glycol 3350 17 238 g PO ONCE #238 g 09/06/20 gram/dose oral powder Allergies Allergy/AdvReac Type Severity Reaction Status Date / Time No Known Allergies Allergy Verified 09/06/20 13:19 General Stated Complaint: Abd Prob FAITH: 3 Review of Systems Narrative: Constitutional: Negative for weight loss, alert and oriented, well groomed, normal body habitus, appears comfortable. HEENT: Denies trauma, headaches, blurry vision, nasal discharge, sore throat, trouble swallowing. Chest: Denies chest pain, palpitations, irregular rhythm, Respiratory: Denies Shortness of breath, cough, hemoptysis. GI: Denies nausea, vomiting, diarrhea, constipation. Positive abdominal pain. : Denies dysuria, hematuria, flank pain. Neuro: Denies dizziness, blurry vision, weakness, syncope, headache or facial numbness. Hematologic: Denies easy bruising, intolerance to heat or cold, hair loss. [facility] Medical History Asthma BRBPR (bright red blood per rectum) Depression Dyspepsia Elevated fasting glucose Essential hypertension Family history of colon cancer Family history of pancreatic cancer Hiatal hernia with gastroesophageal reflux Insomnia Leg length discrepancy Scoliosis Surgical History No significant past surgical history Family History Maternal Grandmother Pancreatic cancer Diabetes Paternal Grandmother Diabetes Father Heart disease Hypertension Mother Colon cancer Social History Smoking/Tobacco Use Status: Current every day Tobacco Type: cigarettes Tobacco: How many years used: 10 Second Hand Exposure: No Smoking risk assessment performed?: Yes Alcohol Intake: never Drug use: Never Substance use type: does not use Adopted: Yes Caregiver/Support person: No Foster care: Yes Household members: significant other Housing: apartment Number of Children: 0 Communication Needs: None Education Level: high school Do you need help understanding health information?: Never current occupation: not working due to stress Pets and animals: Yes Pets and animals: cat(s) and bird(s) Sexually active: No Do you think of yourself as: Decline to Provide Current gender identity: male What is your relationship status?: living with partner How often do you get together with friends or relatives?: twice per week How often do you attend restoration or mosque services?: decline to answer Do you belong to any clubs or organized social groups?: no Panel score (0-1 are the most socially isolated patients): 1 What type of physical activity do you participate in: walking Frequency: 1-2 times per week Stefanie/Scientology: No preference Special stefanie needs: No Agree to transfusion: Yes Seatbelt use: sometimes Helmet use: No Drive intox or ride w/intox public transit trolley driver: No Working smoke detector in home: Yes Fire extinguisher in home: Yes Carbon monox detector in home: Yes Firearms in home: No Do you feel safe at home: Yes Do you feel safe in your relationship?: Yes Exam Narrative Exam Narrative: Constitutional: Alert and oriented x3. Appears stated age. Normal body habitus. Head: Normocephalic, no trauma. Eyes: Pupils PERRLA, Red reflex noted, EOM's intact. Eyelids symmetrical without lesions, discharge, or swelling. Chest: RRR, Normal S1, S2, distal pulses intact. Resp: Lungs clear to auscultation bilaterally, no wheezes, rales, or rhonchi. Abdomen: Soft, nondistended, nontender to palpation over McBurney's point, negative iliopsoas sign, negative obturator sign. Does have some left upper quadrant tenderness with moving of his lower extremities. Musculoskeletal: 5/5 strength to all four extremities. Skin: No suspicious rashes or lesions. Capillary refill less than 2 sec. Neurologic: Cranial nerves II-XII intact. Alert and oriented x 3. DTR's intact. Hematologic/Lymphatic: No ecchymosis, no lymphadenopathy. Course Vital Signs Vital signs: Vital Signs Temperature 36.6 C 09/08/20 10:53 Pulse 70 09/08/20 10:53 Respiratory Rate 18 09/08/20 10:53 Blood Pressure 124/68 09/08/20 10:53 Pulse Oximetry 96 09/08/20 10:53 Temperature 36.6 C 09/08/20 10:53 Pulse 70 09/08/20 10:53 Respiratory Rate 18 09/08/20 10:53 Respiratory Effort Non-Labored 09/08/20 10:55 Blood Pressure 124/68 09/08/20 10:53 Blood Pressure Position Sitting 09/08/20 10:53 Pulse Oximetry 96 09/08/20 10:53 Oxygen Delivery Method Room Air 09/08/20 10:53 Oxygen Flow Rate 0 09/08/20 10:53 Pain Level 7 09/08/20 10:53
--- NOTE | 2020-09-08 11:00 | DI.CT_ITS ---
EXAM: CT ABDOMEN PELVIS W CLINICAL HISTORY: R/O appy. TECHNIQUE: Imaging Protocol: Axial computed tomography images with coronal and sagittal reformatted images were created and reviewed CONTRAST MATERIAL: Intravenous: Omnipaque 100cc Oral: None COMPARISON: CT ABD PELVIS WITH CONTRAST from 09/22/2014 CT ABD PELVIS WITH CONTRAST from 09/22/[address] CHEST PE CTA from 05/30/2020 FINDINGS: VISUALIZED LUNG BASES: Mild atelectasis in the lingular segment of the left lung base. No pleural ef fusions. No ominous pulmonary nodules evident in the visualized lung bases. ABDOMEN: There is no ascites. LIVER: There are multiple small hypodensities which have the appearance of small benign cysts in the liver involving both lobes which have increased from 2015. In addition, there is a uniformly enhanci ng lesion in the in the peripheral aspect of the right hepatic lobe (series 4/image 30) which measure s 1. 4 x 1.4 cm and which was not evident on the prior 2015 study. There for requires appropriate f ollow-up. GALLBLADDER/BILIARY: No obvious gallbladder pathology. CBD is not dilated. PANCREAS: No evidence of pancreatic mass nor dilatation of the pancreatic duct. SPLEEN: Spleen is not enlarged. No obvious intrasplenic lesions. Splenic and portal veins are paten t. ADRENALS: There are no significant adrenal masses. KIDNEYS:No cysts evident. No solid renal masses. No calculi nor hydronephrosis.. ABDOMINAL AORTA: Abdominal aorta is not enlarged and there is no fkqgeyewfzxpgye-adxk-uufqlo adenopat hy. There is very mild streaking in the fat anterior to the lower abdominal aorta in the region of t he inferior mesenteric artery (which is patent). This is subtle but present. There are no prominent lymph nodes in this region. There is a slightly prominent lymph node lateral to the right common il iac artery measuring 1.2 x 0.4 millimeters. This, however, is unchanged from 2015. There is no roman s intrapelvic nor inguinal adenopathy. Benign-appearing shoddy nodes are noted in both inguinal kelsey ons. ABDOMINAL WALL/GI: No evidence of significant anterior abdominal wall hernia. Small fat containing b enign-appearing umbilical wall hernia. No bowel loops therein. No bowel obstruction. The appendix appears unremarkable. There is no oral contrast on this study. The appearance of the a scending and transverse colons and splenic flexure may reflect the presence of colitis although this appearance may be related to lack of oral contrast within the lumen. PELVIS: GI: No evidence of appendicitis.No evidence of sigmoid diverticulitis. LYMPH NODES: There is no intrapelvic nor inguinal adenopathy. REPRODUCTIVE: Prostate and seminal vesicles are not enlarged. URINARY BLADDER: No calculi nor obvious masses evident OSSEOUS: No significant osseous lesions. Sacroiliac joints appear unremarkable. IMPRESSION: 1. Compared to the prior CT scan of August 2014 there is presently a 1.4 by 1.4 cm uniformly enhanc ing lesion in the peripheral right hepatic lobe, not present on the prior study and therefore recomme nd follow-up contrast infused MRI with hemangioma protocol. In addition, there are multiple smaller hypodensities which have the appearance of probable small cysts in the liver but these of also increa sed in number from the 2014 study. 2. No evidence of appendicitis no diverticulitis. 3. Possible circumferential mural thickening of the ascending and transverse colon and splenic flexur e but this may be spurious and just related to lack of oral contrast within the lumen. Correlation w ith any clinical signs of it is is recommended. 4. Small benign-appearing fat containing umbilical hernia. 5. There is mild non-specific streaking just anterior to the distal abdominal aorta. This was proba cassidy also evident on the 2015 study. Also small slightly prominent lymph node adjacent to the right c ommon iliac artery unchanged from 2015. There is no new gross lymphadenopathy, splenomegaly, new mes enteric masses, omental cake, nor ascites. RADIATION DOSE DELIVERED: 1,052.09mGy.cm Total DLP DATA REPOSITORY: All CT scans at this facility are submitted to the National Radiology Data Registry (NRDR) Dose Index Registry (DIR) with the [employer] (A[employer]). RADIATION OPTIMIZATION: All CT scans at this facility use at least one of these dose optimization te chniques: automated exposure control; mA and/or kV adjustment per patient size (includes targeted exa ms where dose is matched to clinical indication); or iterative reconstruction.
[2020-09-08 11:18] LABS: Abs Immature Grans 0.02 10^3/uL (0.0-0.06); Absolute Basophil Count 0.04 10^3/uL (0.0-0.2); Absolute Eosinophil Count 0.17 10^3/uL (0.0-0.7); Absolute Lymphocyte Count 1.78 10^3/uL (1.2-3.4); Absolute Monocyte Count 0.29 10^3/uL (0.1-0.8); Absolute Neutrophil Count 3.69 10^3/uL (1.2-6.7); Basophils % 0.7; Eosinophils % 2.8; HCT 45.6 % (40.0-50.0); HGB 16.1 g/dL (13.5-17.5); Immature Grans % 0.3; Lymphocytes % 29.7; MCH 29.8 pg (27.0-33.0); MCHC 35.3 % (32.0-36.0); MCV 84.3 fL (80-95); MPV 10.6 fL (8.0-11.0); Monocytes % 4.8; Neutrophils % 61.7; Nucleated RBC 0 %; Platelet Count 272 10^3/uL (130-400); RBC 5.41 10^6/uL (4.36-5.78); RDW 12.9 % (11.8-14.1); RDW-SD 39.4 fL; WBC 5.99 10^3/uL (4.4-10.8)
[2020-09-08 11:31] LABS: ALT 92 U/L (16-63); AST 34 U/L (15-37); Albumin 4.1 g/dL (3.4-5.0); Alkaline Phosphatase 81 U/L (46-116); Anion Gap 11.3 mmol/L (3-11); BUN 16 mg/dL (7-18); Bilirubin, Total 0.8 mg/dL (0.2-1.0); CO2 24.7 mmol/L (21.0-32.0); Calcium 9.1 mg/dL (8.5-10.1); Chloride 105 mmol/L (98-107); Glucose 116 mg/dL (74-106); Lipase 135 U/L (73-393); Magnesium 1.9 mg/dL (1.8-2.4); Potassium 3.6 mmol/L (3.5-5.1); Sodium 141 mmol/L (136-145); Total Protein 7.3 g/dL (6.4-8.2)
[2020-09-08 12:01] VITALS: BP 108/57; PULSE 68; RESP 18; TEMP 36.7; O2SAT 97
[2020-09-08] MEDS: Normal Saline - Diluent 50 ML VIAL IV (12:03)
[2020-09-08] MEDS: Omnipaque 350 MG/ML 100 ML BTL IJ (12:04)
[2020-09-08] MEDS: Normal Saline Flush 10 ML SYR IVP (12:05)
--- NOTE | 2020-09-08 12:10 | DI.VRAD_ITS ---
PROCEDURE INFORMATION: Exam: CT Abdomen And Pelvis With Contrast Exam date and time: 09/08/2020 11:11 AM Age: 30 years old Clinical indication: Other: R/O appy TECHNIQUE: Imaging protocol: Computed tomography of the abdomen and pelvis with contrast. Contrast material: OMNIPAQUE 350; Contrast volume: 100 ml; Contrast route: INTRAVENOUS (IV); COMPARISON: CT ABD PELVIS WITH CONTRAST 09/22/2014 9:16 AM FINDINGS: Lungs: The visualized lung bases demonstrate mild dependent atelectasis. Liver: The liver is again mildly fatty in density and could again contains multiple small cysts and subcentimeter hypodense lesions which are too small to characterize. Newly evident in the right lobe is a dense or enhancing lesion measuring 1.4 x 1.4 cm (image 4:30). Gallbladder and bile ducts: No gallstones are evident, but ultrasound would be more sensitive. No gross biliary ductal dilatation. Pancreas: Normal. No ductal dilation. Spleen: Normal. No splenomegaly. Adrenal glands: Normal. No mass. Kidneys and ureters: Normal. No hydronephrosis. Stomach and bowel: The unopacified small bowel is not significantly distended to suggest obstruction. Question mild wall thickening of portions of the ascending, transverse and descending colon. The large bowel is otherwise grossly unremarkable in appearance. Appendix: The appendix appears normal. Intraperitoneal space: No free air or significant free fluid. Vasculature: Unremarkable. No abdominal aortic aneurysm. Lymph nodes: Unremarkable. No enlarged lymph nodes. Urinary bladder: Unremarkable as visualized. Reproductive: Unremarkable as visualized. Bones/joints: Unremarkable. No acute fracture. Soft tissues: Small fat containing umbilical hernia is again present. Small fat containing bilateral inguinal hernias have developed. IMPRESSION: 1. Normal appearance of the appendix. 2. Question mild wall thickening of portions of the ascending, transverse and descending colon. Correlate as to any potential non-specific colitis. 3. 1.4 cm dense or enhancing lesion in the liver, new as compared with 09/22/14, further evaluation and/or followup to be determined at time of final read depending on availability of any additional interval imaging and as per institutional protocol. 4. Persistent small fat containing umbilical hernia. 5. Small new fat containing bilateral inguinal hernias. Dictated and Authenticated by: Kush Gunn MD. Ordering:JEFFREY Marino MD
[2020-09-08 12:35] LABS: Bilirubin Negative (Negative); Blood Negative (Negative); Clarity Clear (Clear); Glucose Negative (Negative); Ketones Negative (Negative); Leukocyte Esterase Negative (Negative); Nitrite Negative (Negative); Specific Gravity 1.015 (1.005-1.025); Urobilinogen 0.2 EU/dL (Up TO 0.2)
[2020-09-08 12:50] VITALS: BP 100/60; PULSE 62; RESP 18; TEMP 36.7; O2SAT 97
== END 2020-09-08 12:58 | disposition home or self-care (01) ==
PROVIDERS: Emergency Provider Registered Nurse Emergency; PCP Family Medicine
DX: R10.31 Right lower quadrant pain (principal); I10 Essential (primary) hypertension
CPT/HCPCS: 80053; 83690; 99285; 74177; 81003; 83735; 85025; 99284; J3490

== ENCOUNTER 2020-09-09 02:06 | Outpatient (CLI) | payer MEDICAID, SELFPAY ==
[2020-09-09 10:55] LABS: ALT 94 U/L (16-63); AST 37 U/L (15-37); Albumin 4.1 g/dL (3.4-5.0); Alkaline Phosphatase 84 U/L (46-116); Anion Gap 8.1 mmol/L (3-11); BUN 15 mg/dL (7-18); Bilirubin, Direct 0.15 mg/dL (0.00-0.20); Bilirubin, Total 0.8 mg/dL (0.2-1.0); CO2 26.9 mmol/L (21.0-32.0); Calcium 8.9 mg/dL (8.5-10.1); Chloride 106 mmol/L (98-107); Glucose 85 mg/dL (74-106); Potassium 3.7 mmol/L (3.5-5.1); Sodium 141 mmol/L (136-145)
[2020-09-09 12:27] LABS: Creatine Kinase 239 U/L (39-308)
[2020-09-10 15:25] LABS: Aldolase 7.2 U/L (<7.7)
== END 2020-09-09 02:07 | disposition home or self-care (01) ==
LOC: LBO 02:06
PROVIDERS: PCP Family Medicine; Visit Provider Family Medicine
DX: E87.6 Hypokalemia (principal); R74.8 Abnormal levels of other serum enzymes; M79.18 Myalgia, other site
CPT/HCPCS: 36415; 80048; 80076; 82550; 82085

== ENCOUNTER 2020-09-10 03:10 | Outpatient (CLI) | payer MEDICAID, SELFPAY ==
[2020-09-11 13:28] LABS: COVID-19 RT-PCR UVMMC Result Negative (Negative)
== END 2020-09-10 03:11 | disposition home or self-care (01) ==
LOC: LBO 03:10
PROVIDERS: PCP Family Medicine; Visit Provider Surgery
DX: Z20.822 Contact with and (suspected) exposure to COVID-19 (principal); Z01.818 Encounter for other preprocedural examination
CPT/HCPCS: U0003

== ENCOUNTER 2020-09-13 10:06 | Day surgery (SDC) | payer MEDICAID, SELFPAY ==
[2020-09-13 10:20] VITALS: BP 117/79; PULSE 89; RESP 18; TEMP 36.5; O2SAT 97
[2020-09-13] MEDS: Lactated Ringers 1,000 ML 80 ML IV (10:40)
--- NOTE | 2020-09-13 11:25 | STOM_PTH ---
PATIENT: Vega Herndon LOC: [facility] U#:[id number] AGE/SX: 30/M ROOM: RE09/13/[address]: Ascencion Weber MD : 1990 BED: DIS: 09/13/2020 SPEC #: [id number] RECD: 09/13/20 12:17 STATUS: ALLAN RE #: [id number] DAREN: 09/13/20 11:[address]: Ascencion Weber DEPT: Surgical Specimen RECD BY: Sarah Coppola ENTERED: 09/13/20 12:18 SP TYPE: STOMACH OTHR DR: Tony Dao DO Tissues: 1 - STOMACH BIOPSY 2 - ESOPHAGUS BIOPSY Procedures: GROSS AND MICRO LEVEL 4 Comments: [id number]
--- NOTE | 2020-09-13 11:50 | W.PM.DSUDISC ---
Discharge Plan Disposition Patient Disposition: HOME Condition: Good Discharge Details Reason For Visit: upper and lower endoscopy Attending Provider: Ascencion Weber Primary Care Provider: Tony Dao Home Meds and New Rx's Prescriptions: No Action albuterol sulfate [Ventolin HFA] 90 mcg/actuation HFA aerosol inhaler 2 puff inhalation Q6H PRN (Reason: shortness of breath or wheezing) Qty: 18 RF: 6 fluoxetine 40 mg capsule 40 mg PO DAILY Qty: 90 RF: 0 cyclobenzaprine 10 mg tablet 10 mg PO TID PRN (Reason: muscle spasm) Qty: 90 RF: 2 metoprolol succinate 25 mg tablet extended release 24 hr 25 mg PO DAILY Qty: 90 RF: 3 polyethylene glycol 3350 17 gram/dose powder 238 g PO ONCE Qty: 238 RF: 0 bisacodyl [Dulcolax (bisacodyl)] 5 mg tablet,delayed release (DR/EC) 5 mg PO ONCE Qty: 4 RF: 0 montelukast [Singulair] 10 mg tablet 10 mg PO QHS Qty: 30 RF: 6 esomeprazole magnesium [Nexium] 40 mg capsule,delayed release(DR/EC) 40 mg PO DAILY Qty: 90 RF: 3 nitroglycerin 0.4 mg tablet, sublingual 0.4 mg sublingual Q5M PRN (Reason: chest pain) Qty: 30 RF: 0 naproxen 500 mg tablet 500 mg PO PRN PRNRF: 0 Discharge Instructions Additional Instructions: resume diet as tolerated. You had a healed ulcer in your stomach you have mild esophagitis, biopies were done and a normal colon Activity:: Activity as Tolerated Diet:: As Tolerated Discharge Orders Discharge Orders: Discharge Order (Routine); Ordered 09/13/20 Ordered By: Ascencion Weber DS: Diagnosis Discharge Diagnosis (1) Abdominal pain: Status: Acute
--- NOTE | 2020-09-13 11:53 | W.COLOREPORT ---
Date of service: 09/13/20 Time of Service: 11:53 Colonoscopy Report Pre-op diagnosis general: abdomenal pain and reflux Post-op diagnosis procedure note: same Procedure: upper and lower endoscopy Surgeon: Ascencion Weber Anesthesia proc note operative: MAC Pathology: other (antrum, distal esophagus) Complications: None Disposition: same day Prep: Miralax Findings: healed antral ulcer, mild esophagitis no erosions Procedure Description: With the pt in the left lateral decubitus position the olympus gastroscope was iintroduced and easily advanced to the 2nd portion of the doudenum. The mucosa was normal, the bulb was also normal. The pylorus was normal. In the antrum there was a healed ulcer which was biopsied. A c turn was done and the incisura was normal, a u turn revealed a normal proxima stomach. There was a 2-3 cm hiatal hernia with grade one esophagitis which was biopsied. The olympus colonoscope was then introduced easily to the cecum and the orifice of the appendix visualized. The muscosa of the colon was then carefully inspected and was entirely normal. No polyps or inflamtion were noted. A u turn was preformed in the rectum and the scope withdrawn
[2020-09-13 12:04] VITALS: PULSE 71; RESP 16; O2SAT 96
[2020-09-13 12:30] VITALS: BP 114/68; PULSE 62; RESP 18; TEMP 37.1; O2SAT 95
== END 2020-09-13 13:25 | disposition home or self-care (01) ==
PROVIDERS: PCP Family Medicine; Visit Provider Surgery
PROC: (CPT 43239; principal; 2020-09-13 11:30)
DX: R10.9 Unspecified abdominal pain (principal); K20.90 Esophagitis, unspecified without bleeding; K44.9 Diaphragmatic hernia without obstruction or gangrene; Z87.11 Personal history of peptic ulcer disease; Z80.0 Family history of malignant neoplasm of digestive organs
CPT/HCPCS: 43239; 45378; 88305; J2001

== ENCOUNTER 2020-09-18 20:01 | Emergency (ER) | payer MEDICAID, SELFPAY ==
[2020-09-18] VITALS (26 sets, daily range): BP systolic 107–145; BP diastolic 61–84; PULSE 71–102; RESP 13–27; TEMP 36.2; O2SAT 92–99
--- NOTE | 2020-09-18 19:45 | RT.EKG_ITS ---
APPROVED REPORT Exam: Resting ECG Patient Location: E HR:89 bpm ECG Measurements Heart Rate 89 AXIS CO 157 P 55 QRSd 81 QRS 28 QT 334 T 63 QTc 407 Conclusion Sinus rhythm...normal P axis, V-rate 60- 99 There are no significant changes compared to prior EKG performed on 08/28/2020 at 12:26.
--- NOTE | 2020-09-18 20:18 | ED.GENADUL_ITS ---
Discharge Plan Disposition Patient Disposition: HOME Condition: Good Discharge Details Clinical Impression: Chest pain, Anxiety Primary Care Provider: Tony Dao ED Provider: Colin Mccall Home Meds and New Rx's Prescriptions: Continued albuterol sulfate [Ventolin HFA] 90 mcg/actuation HFA aerosol inhaler 2 puff inhalation Q6H PRN (Reason: shortness of breath or wheezing) Qty: 18 RF: 6 fluoxetine 40 mg capsule 40 mg PO DAILY Qty: 90 RF: 0 cyclobenzaprine 10 mg tablet 10 mg PO TID PRN (Reason: muscle spasm) Qty: 90 RF: 2 metoprolol succinate 25 mg tablet extended release 24 hr 25 mg PO DAILY Qty: 90 RF: 3 montelukast [Singulair] 10 mg tablet 10 mg PO QHS Qty: 30 RF: 6 esomeprazole magnesium [Nexium] 40 mg capsule,delayed release(DR/EC) 40 mg PO DAILY Qty: 90 RF: 3 nitroglycerin 0.4 mg tablet, sublingual 0.4 mg sublingual Q5M PRN (Reason: chest pain) Qty: 30 RF: 0 Discontinued naproxen 500 mg tablet 500 mg PO PRN PRNRF: 0 Discharge Instructions Additional Instructions: Your EKG, chest x-ray, cardiac enzyme tonight look fine. At this point I think the various symptoms that have resulted in presentation to the ED are likely anxiety driven. Thank you would benefit from increased mental health visit and/or change in medications. Please follow-up with PCP next week to discuss. Referrals: Tony Dao DO [Primary Care Provider] - Medical Decision Making Patient presenting with a complaint of chest discomfort, congestion, nausea. Vital signs are normal. EKG is unchanged from previous. Complains of chest congestion and may be shortness of breath. Will get chest x-ray but lungs are clear and saturations are normal. Chest discomfort since 3 PM so will obtain one troponin but this is ACS. Suspect, again, this is related to anxiety may be from boredom being worked up at home with no job and no social interaction given that it sounds like his girlfriend is not home a lot. He has seen mental health in the past. He is on fluoxetine. He may benefit from different medications and more intense mental health or even referral to [facility]. Patient's chest x-ray is unremarkable. Troponin negative. Patient remained stable and unchanged. Will place on care management list to look into community resources as patient is becoming frequent utilizer of ED. Have asked him to discuss with PCP, health referral and/or medication change as he does not think fluoxetine helps at all. Discharge home in good condition. Return if any new or worsening symptoms. Medical Records Medical records reviewed: Yes I reviewed the patient's medical records. Lab Data Lab results reviewed: Yes I reviewed the patient's lab results. ECG Data Attestation: I personally reviewed and interpreted this ECG (s) as follows: Prior ECG tracings: available for review Interpretation: see EKG HPI General Mode of arrival: EMS . Date/Time Provider Initiated Documentation: 09/18/20 20:14 . Limitations to Documentation: no limitations . Information obtained by: patient, RN notes reviewed and old records reviewed . HPI Narrative: Patient presents to ED by ambulance with complaint of chest discomfort, chest congestion, nausea. States symptoms started about 3 PM. He was given aspirin by EMS. At the time my evaluation denies chest discomfort. Denies any abdominal pain, vomiting, diarrhea. Denies fever or cough. Maybe feels a little short of breath. In reviewing his records he has now had 5 ED visits in the last month in addition to primary care visit and surgery visit with upper and lower endoscopy performed. Endoscopy showed old ulcer in the stomach otherwise negative and normal colon. I have seen the patient previously within the last month. At that time I felt anxiety was likely because of his symptoms. In discussing this further tonight, patient is not working and sits at home alone a lot watching TV and playing video games. His girlfriend is not around tonight and will be home until tomorrow. Related Data Home Medications Medication Instructions Recorded Confirmed albuterol sulfate 90 mcg/actuation 2 puff INHALATION Q6H PRN #18 gm 08/04/19 09/18/20 aerosol inhaler montelukast 10 mg tablet 10 mg PO QHS #30 tab 11/16/19 09/18/20 esomeprazole magnesium 40 mg 40 mg PO DAILY #90 cap 01/12/20 09/18/20 capsule,delayed release cyclobenzaprine 10 mg tablet 10 mg PO TID PRN #90 tab 05/03/20 09/18/20 fluoxetine 40 mg capsule 40 mg PO DAILY #90 cap 07/16/20 09/18/20 metoprolol succinate 25 mg 25 mg PO DAILY #90 tab 08/27/20 09/18/20 tablet,extended release 24 hr nitroglycerin 0.4 mg sublingual 0.4 mg SUBLINGUAL Q5M PRN #30 tab 08/29/20 09/18/20 tablet Previous Rx's Medication Instructions Recorded albuterol sulfate 90 mcg/actuation 2 puff INHALATION Q6H PRN #18 gm 08/04/19 aerosol inhaler montelukast 10 mg tablet 10 mg PO QHS #30 tab 11/16/19 esomeprazole magnesium 40 mg 40 mg PO DAILY #90 cap 01/12/20 capsule,delayed release cyclobenzaprine 10 mg tablet 10 mg PO TID PRN #90 tab 05/03/20 fluoxetine 40 mg capsule 40 mg PO DAILY #90 cap 07/16/20 metoprolol succinate 25 mg 25 mg PO DAILY #90 tab 08/27/20 tablet,extended release 24 hr nitroglycerin 0.4 mg sublingual 0.4 mg SUBLINGUAL Q5M PRN #30 tab 08/29/20 tablet Allergies Allergy/AdvReac Type Severity Reaction Status Date / Time No Known Allergies Allergy Verified 09/13/20 10:28 General Stated Complaint: Chest Pain FAITH: 2 Review of Systems Narrative: As documented in HPI otherwise negative as below. Const: no fever, chills, weakness Resp: no cough, pleuritic pain CV: no diaphoresis, edema, syncope GI: no abdominal pain, vomiting, diarrhea Neuro: no headache, numbness, focal weakness, confusion PFSH Medical History Asthma BRBPR (bright red blood per rectum) Depression Dyspepsia Elevated fasting glucose Essential hypertension Family history of colon cancer Mother, age 53 Family history of pancreatic cancer Hepatic cyst Hiatal hernia with gastroesophageal reflux Insomnia Leg length discrepancy Scoliosis Surgical History History of colonoscopy (~09/13/20) History of esophagogastroduodenoscopy (EGD) (~09/13/20) Hx of esophagogastroduodenoscopy Spring 2019 No significant past surgical history Family History Maternal Grandmother Pancreatic cancer Diabetes Paternal Grandmother Diabetes Father Heart disease Hypertension Mother Colon cancer Social History Smoking/Tobacco Use Status: Former Tobacco Use Quit Date: 06/25/20 Tobacco: How many years used: 10 Second Hand Exposure: No Smoking risk assessment performed?: Yes Alcohol Intake: never Drug use: Never Substance use type: does not use Adopted: Yes Caregiver/Support person: No Foster care: Yes Household members: significant other Housing: apartment Number of Children: 0 Communication Needs: None Education Level: high school Do you need help understanding health information?: Never current occupation: not working due to stress Pets and animals: Yes Pets and animals: cat(s) and bird(s) Sexually active: No Do you think of yourself as: Decline to Provide Current gender identity: male What is your relationship status?: living with partner How often do you get together with friends or relatives?: twice per week How often do you attend mormonism or synagogue services?: decline to answer Do you belong to any clubs or organized social groups?: no Panel score (0-1 are the most socially isolated patients): 1 What type of physical activity do you participate in: walking Frequency: 1-2 times per week Stefanie/Mormonism: No preference Special stefanie needs: No Agree to transfusion: Yes Seatbelt use: sometimes Helmet use: No Drive intox or ride w/intox 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 HEENT: NC/AT. Normal facial exam. Eyes: Normal conjunctiva and sclera. Neck: Supple. Trachea midline. Lungs: Normal respiratory effort. Lungs are clear. Cor: RRR without murmur/gallop. Good radial pulses. GI: Soft. NT/ND. No guarding or rebound. Neuro: A+O x 3. Normal speech, mentation, gait. Cranial nerves II - XII grossly intact. No gross motor or sensory deficit. Ext: No C/C/E. No calf tenderness. Skin: Warm and dry without rash. Course Vital Signs Vital signs: Vital Signs Temperature 97.2 F L 09/18/20 19:57 Pulse 98 H 09/18/20 19:57 Respiratory Rate 23 09/18/20 19:57 Blood Pressure 129/84 09/18/20 19:57 Pulse Oximetry 98 09/18/20 19:57 Temperature 97.2 F L 09/18/20 19:57 Temperature Source Temporal Artery Scan 09/18/20 19:57 Pulse 98 H 09/18/20 19:57 Respiratory Rate 21 09/18/20 20:02 Respiratory Effort Non-Labored 09/18/20 20:02 Respiratory Depth Normal 09/18/20 20:02 Respiratory Pattern Normal 09/18/20 20:02 Blood Pressure 129/84 09/18/20 19:57 Blood Pressure Position Supine 09/18/20 19:57 Pulse Oximetry 98 09/18/20 19:57 Oxygen Delivery Method Room Air 09/18/20 19:57 Oxygen Flow Rate 0 09/18/20 19:57 Pain Level 2 09/18/20 19:57
--- NOTE | 2020-09-18 20:30 | DI.RAD_ITS ---
EXAM: XR CHEST 2V PA LATERAL CLINICAL HISTORY: chest pain/SOB. TECHNIQUE: 2D digital imaging was performed. COMPARISON: CR,XR XR CHEST 2V PA LATERAL from 08/22/2020 FINDINGS: Heart size is normal. The mediastinum is not widened. Lungs are clear. No infiltrates nor pleural effusions. IMPRESSION: No acute pulmonary findings. DATA REPOSITORY: RADIATION DOSE DELIVERED:
[2020-09-18 21:08] LABS: Troponin I < 0.05 ng/mL (<0.06)
--- NOTE | 2020-09-18 21:41 | DI.VRAD_ITS ---
PROCEDURE INFORMATION: Exam: XR Chest, 2 Views Exam date and time: 09/18/2020 8:42 PM Age: 30 years old Clinical indication: Chest pain; Type not specified TECHNIQUE: Imaging protocol: XR of the chest Views: 2 views. COMPARISON: CR XR CHEST 2V PA LATERAL 08/22/2020 10:54 PM FINDINGS: Lungs: Unremarkable. No consolidation. Pleural spaces: Unremarkable. No pleural effusion. No pneumothorax. Heart/Mediastinum: Unremarkable. No cardiomegaly. Bones/joints: Unremarkable. IMPRESSION: No acute findings. Dictated and Authenticated by: Jhon Galloway MD. Ordering:KARIN Shaw MD
--- NOTE | 2020-09-19 04:45 | NUR.NOTE ---
Nursing Note: Referral to care management faxed 09/19/20 [phone] libl
== END 2020-09-18 22:14 | disposition home or self-care (01) ==
PROVIDERS: Emergency Provider Emergency Medicine; PCP Family Medicine
DX: R07.89 Other chest pain (principal); F41.9 Anxiety disorder, unspecified; I10 Essential (primary) hypertension
CPT/HCPCS: 93005; 99284; 71046; 84484; 93010; 99283

== ENCOUNTER 2020-11-13 11:59 | Emergency (ER) | payer MEDICAID, SELFPAY ==
[2020-11-13] VITALS (19 sets, daily range): BP systolic 109–131; BP diastolic 63–81; PULSE 83–109; RESP 12–25; TEMP 36.7–36.9; O2SAT 92–99
--- NOTE | 2020-11-13 12:00 | RT.EKG_ITS ---
APPROVED REPORT Exam: Resting ECG Patient Location: E HR:97 bpm ECG Measurements Heart Rate 97 AXIS NE 153 P 53 QRSd 83 QRS 40 QT 355 T 56 QTc 451 Conclusion Sinus rhythm...normal P axis, V-rate 60- 99 I have reviewed and interpreted ECG and agree with software generated interpretation.
--- NOTE | 2020-11-13 12:00 | W.ED.GENAD ---
Discharge Plan Disposition Patient Disposition: HOME Condition: Good Discharge Details Clinical Impression: Transaminitis, Liver cyst, Right-sided chest pain Primary Care Provider: Tony Dao ED Provider: Becca Antunez Home Meds and New Rx's Prescriptions: Continued naproxen 500 mg tablet 500 mg PO QHS RF: 0 cyclobenzaprine 10 mg tablet 10 mg PO TID PRN (Reason: muscle spasm) Qty: 90 RF: 2 amitriptyline 50 mg tablet 50 mg PO QHS PRN (Reason: insomnia) Qty: 90 RF: 3 esomeprazole magnesium [Nexium] 40 mg capsule,delayed release(DR/EC) 40 mg PO DAILY Qty: 90 RF: 3 nitroglycerin 0.4 mg tablet, sublingual 0.4 mg sublingual Q5M PRN (Reason: chest pain) Qty: 30 RF: 0 albuterol sulfate [Ventolin HFA] 90 mcg/actuation HFA aerosol inhaler 2 puff inhalation Q6H PRN (Reason: shortness of breath or wheezing) Qty: 18 RF: 6 Discharge Instructions Instructions: Chest Pain (ED) Additional Instructions: Your labs and imaging are reassuring here today. Your liver enzymes are slightly elevated. However, there does not appear to be any acute abnormality in your liver on the ultrasound. Please keep your appointment for your MRI on Wednesday. Please follow-up with your primary care next week to discuss the results as well as the pain. If you develop fever/chills, vomiting, inability stay hydrated or other new/worsening symptoms to seek care urgently one again Referrals: Tony Dao DO [Primary Care Provider] - Discharge Data Discharge Date/Time-TO BE ENTERED AT DEPARTURE: 11/13/20 16:20 Medical Decision Making Patient is a pleasant 30-year-old male presents today with chief complaint of right-sided chest pain and intermittent shortness of breath. Clinical history pertinent for hypertension, depression, GERD. Patient also reports history of asthma. Reports he has been using his inhaler for shortness of breath. He notes no fevers or chills. States that he was coughing earlier in the time but otherwise has been not having any upper respiratory symptoms. Reports that the pain on the right side is migratory. Can be in the anterior aspect of check chest, lateral aspect around his back, abdomen. Denies any nausea vomiting. No change in his bowel habits. Primary care was concerned about potential urinary tract infection. Patient denies any dysuria, increased frequency or urgency. No blood in his urine. On exam, patient appears anxious. He appears nontoxic. Vital signs are stable. O2 is 98% on room air. No pain is reproducible on exam. No CVA tenderness. No pain with compression of the ribs. Lungs are clear. Normal cardiac exam. Abdomen is benign. No lower extremity edema or calf tenderness. 2+ distal pulses in all extremities. Patient declines any analgesics. I do not feel that patient would benefit from nebulizer or other emergent medical intervention. Plan for baseline labs. His pain is consistent, not worse with exertion. Have very low suspicion for ACS. He is PERC negative so rules out for pulmonary embolism. Pain is not consistent with dissection, pneumothorax or other emergent pathology. No rash. Labs reviewed. No leukocytosis. Stable H&H. CMP significant for AST of 56, ALT of 139. After review, patient has had mild elevations of his LFTs historically. I discussed physical findings with the patient. He reports that he had an MRI on Wednesday. On chart review, patient is scheduled to have hemangioma protocol MRI. Spoke with Dr. Bruce, radiologist, regarding the patient's presenting symptoms and increased transaminitis. We discussed imaging at this time. Were unable to obtain the hemangioma protocol MRI today. He felt that ultrasound is more appropriate at this point, particularly to keep radiation and contrast load lower. This to be able to evaluate further for any bleeding or other abnormality in the liver or gallbladder. Discussed this plan with the patient who is in agreement CT reviewed by radiologist: FINDINGS: There is no ascites evident. LIVER: Liver is slightly hyperechoic indicating an element of steatosis. There are a few small sub cm cysts in the liver, seen on the recent CT scan of August 2020.. In addition, there is a subcapsular lesion measuring approximately 1.4 x 1.3 cm which does not have the appearance of a simple cyst and which corresponds to the finding described on the CT scan 09/08/2020. This does not have typical hyperechoic ultrasound appearance of a benign hepatic hemangioma GALLBLADDER/BILIARY: There are no gallstones. No gallbladder wall edema nor pericholecystic fluid. The common hepatic duct isnot dilated, measuring 3mm at the level of kamilla hepatis. PANCREAS: There is no evidence of pancreatic mass nor dilatation of the pancreatic duct. RIGHT KIDNEY:No evidence of solid mass, calculus, nor hydronephrosis. No cortical cysts evident. ABDOMINAL AORTA AND IVC: Visualized portions exhibit normal caliber. IMPRESSION: 1. No evidence of cholelithiasis nor dilatation of the biliary tree. 2. In addition to a few small benign sub cm hepatic cysts there is also a 14 x 13 millimeter right hepatic lobe lesion which corresponds to the finding recently described on CT scan of September 08, 2020. This does not have the typical ultrasound hyperechoic appearance of a cavernous hemangioma. Therefore, appropriate follow-up would be MRI without and with IV gadolinium injection using hemangioma protocol. 3. There is no ascites. The findings with the patient. Patient will keep appointment for MRI. Encouraged follow-up with primary care. At this time, will not see evidence of surgical abdomen. I feel the patient is safe for discharge. He agrees with this plan. I did encourage close follow-up with primary care for return precautions were discussed. All of his questions and concerns were addressed and he is in agreement with this plan. HPI General Mode of arrival: EMS. Date/Time Provider Initiated Documentation: 11/13/20 12:00. Limitations to Documentation: no limitations. Information obtained by: patient and RN notes reviewed. History of Present Illness 30 year old M presents to the emergency department with the chief complaint of right sided chest/abdominal pain, described as mild, with intensity rated at 2. Quality is described as aching (migratory), and is localized to the back and abdomen. Patient started experiencing this day(s) (2) and it has been intermittent. No relieving factors improve symptom(s), No exacerbating factors reported . Patient notes no other symptoms.. Patient did receive the following treatments prior to arrival, none Related Data Home Medications Medication Instructions Recorded Confirmed esomeprazole magnesium 40 mg 40 mg PO DAILY #90 cap 01/12/20 11/13/20 capsule,delayed release cyclobenzaprine 10 mg tablet 10 mg PO TID PRN #90 tab 05/03/20 09/18/20 nitroglycerin 0.4 mg sublingual 0.4 mg SUBLINGUAL Q5M PRN #30 tab 08/29/20 11/13/20 tablet amitriptyline 50 mg tablet 50 mg PO QHS PRN #90 tab 10/18/20 11/13/20 naproxen 500 mg tablet 500 mg PO QHS tab 11/06/20 11/13/20 albuterol sulfate 90 mcg/actuation 2 puff INHALATION Q6H PRN #18 gm 11/13/20 11/13/20 aerosol inhaler Previous Rx's Medication Instructions Recorded esomeprazole magnesium 40 mg 40 mg PO DAILY #90 cap 01/12/20 capsule,delayed release cyclobenzaprine 10 mg tablet 10 mg PO TID PRN #90 tab 05/03/20 nitroglycerin 0.4 mg sublingual 0.4 mg SUBLINGUAL Q5M PRN #30 tab 08/29/20 tablet amitriptyline 50 mg tablet 50 mg PO QHS PRN #90 tab 10/18/20 albuterol sulfate 90 mcg/actuation 2 puff INHALATION Q6H PRN #18 gm 11/13/20 aerosol inhaler Allergies Allergy/AdvReac Type Severity Reaction Status Date / Time No Known Allergies Allergy Verified 11/15/20 10:37 General FAITH: 2 Review of Systems Constitutional Constitutional: Reports as per HPI, Denies chills, Denies fatigue, Denies fever(s) and Denies headache(s) ENT Ears, Nose, Mouth, and Throat: Denies headache(s) Cardiovascular Cardiovascular: Reports as per HPI, Reports chest pain (pain can migrate into right side of chest, none currently in chest) and Denies dyspnea Respiratory Respiratory: Reports as per HPI, Denies cough and Denies dyspnea Gastrointestinal Gastrointestinal: Reports as per HPI Genitourinary Genitourinary: Denies system reviewed and no additional complaints, except as documented (patient denies any change in urinary habits) Musculoskeletal Musculoskeletal: Reports as per HPI and Denies back pain Integumentary/Breasts Skin/Breast: Reports as per HPI and Denies rash Neurologic Neurologic: Reports as per HPI and Denies headache(s) Endocrine Endocrine: Denies fatigue [facility] Medical History Asthma BRBPR (bright red blood per rectum) Depression Dyspepsia Elevated fasting glucose Esophagitis determined by endoscopy Essential hypertension Excessive sleepiness Family history of colon cancer Mother, age 53 Family history of pancreatic cancer Hepatic cyst Hiatal hernia with gastroesophageal reflux Insomnia Leg length discrepancy Scoliosis Surgical History History of colonoscopy (~09/13/20) History of esophagogastroduodenoscopy (EGD) (~09/13/20) Hx of esophagogastroduodenoscopy Spring 2019 No significant past surgical history Family History Maternal Grandmother Pancreatic cancer Diabetes Paternal Grandmother Diabetes Father Heart disease Hypertension Mother Colon cancer Social History Smoking/Tobacco Use Status: Former Tobacco Use Quit Date: 06/25/20 Tobacco: How many years used: 10 Second Hand Exposure: No Smoking risk assessment performed?: Yes Alcohol Intake: never Drug use: Never Substance use type: does not use Adopted: Yes Caregiver/Support person: No Foster care: Yes Household members: significant other Housing: apartment Number of Children: 0 Communication Needs: None Education Level: high school Do you need help understanding health information?: Never current occupation: [employer] Pets and animals: Yes Pets and animals: cat(s) and bird(s) Sexually active: No Do you think of yourself as: Decline to Provide Current gender identity: male What is your relationship status?: living with partner How often do you get together with friends or relatives?: twice per week How often do you attend christian or buddhism services?: decline to answer Do you belong to any clubs or organized social groups?: no Panel score (0-1 are the most socially isolated patients): 1 What type of physical activity do you participate in: walking and independent ambulation Frequency: 1-2 times per week Stefanie/Jew: No preference Special stefanie needs: No Agree to transfusion: Yes Seatbelt use: sometimes Helmet use: No 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 Working smoke detector in home: Yes Fire extinguisher in home: Yes Carbon monox detector in home: Yes Firearms in home: No Do you feel safe at home: Yes Do you feel safe in your relationship?: Yes Exam Const General: cooperative, healthy appearing, comfortable, no acute distress, well developed and anxious Nutritional Appearance: average body habitus and well nourished Orientation: alert and awake HENMT Head: normal to inspection Mouth: moist mucous membranes Chest Chest: normal inspection of the chest, normal palpation of entire chest wall, no crepitus, no localized rib tenderness and no tenderness Resp Effort & Inspection: normal respiratory effort, able to speak in complete sentences and no respiratory distress Auscultation: clear to auscultation bilaterally, no rales, no rhonchi and no wheezes Cardio Rate: regular rate Rhythm: regular rhythm Heart Sounds: S1 normal and S2 normal GI Inspection: normal to inspection Palpation: soft, no hepatosplenomegaly and nontender Percussion: normal to percussion Auscultation: normal bowel sounds Back/Spine/Pelvis Back: no CVA tenderness Skin General skin exam: no rashes or lesions noted Trauma: no lacerations or abrasions Neuro General: patient alert and patient awake Cognition: normal cognition Speech: speech normal Gait: normal gait Extrem General: normal to inspection, no pedal edema and no calf tenderness Psych Appearance: grossly normal and well kempt Mental Status: mental status grossly normal Speech and Movement: speech and movement normal
[2020-11-13 13:08] LABS: Abs Immature Grans 0.01 10^3/uL (0.0-0.06); Absolute Basophil Count 0.04 10^3/uL (0.0-0.2); Absolute Eosinophil Count 0.18 10^3/uL (0.0-0.7); Absolute Lymphocyte Count 1.81 10^3/uL (1.2-3.4); Absolute Monocyte Count 0.42 10^3/uL (0.1-0.8); Absolute Neutrophil Count 3.12 10^3/uL (1.2-6.7); Basophils % 0.7; Eosinophils % 3.2; HGB 16.3 g/dL (13.5-17.5); Immature Grans % 0.2; Lymphocytes % 32.4; MCH 30.2 pg (27.0-33.0); MCHC 34.7 % (32.0-36.0); MCV 87.2 fL (80-95); MPV 10.6 fL (8.0-11.0); Monocytes % 7.5; Nucleated RBC 0 %; Platelet Count 242 10^3/uL (130-400); RBC 5.39 10^6/uL (4.36-5.78); RDW 12.3 % (11.8-14.1); RDW-SD 39.3 fL; WBC 5.58 10^3/uL (4.4-10.8)
[2020-11-13 13:10] LABS: Bilirubin Negative (Negative); Blood Negative (Negative); Clarity Clear (Clear); Glucose Negative (Negative); Ketones Negative (Negative); Leukocyte Esterase Negative (Negative); Nitrite Negative (Negative); Specific Gravity >= 1.030 (1.005-1.025); pH 6.5 (5-8)
[2020-11-13 13:29] LABS: ALT 139 U/L (16-63); AST 66 U/L (15-37); Albumin 3.8 g/dL (3.4-5.0); Alkaline Phosphatase 72 U/L (46-116); Anion Gap 10.5 mmol/L (3-11); BUN 17 mg/dL (7-18); Bilirubin, Total 0.6 mg/dL (0.2-1.0); CO2 26.5 mmol/L (21.0-32.0); Calcium 8.5 mg/dL (8.5-10.1); Chloride 107 mmol/L (98-107); Glucose 104 mg/dL (74-106); Magnesium 1.9 mg/dL (1.8-2.4); Potassium 3.7 mmol/L (3.5-5.1); Sodium 144 mmol/L (136-145); Total Protein 7.1 g/dL (6.4-8.2)
[2020-11-13 13:38] LABS: Troponin I < 0.05 ng/mL (<0.06)
--- NOTE | 2020-11-13 13:43 | DI.RAD_ITS ---
EXAM: XR CHEST 2V PA LATERAL CLINICAL HISTORY: SOB and discomfort. TECHNIQUE: 2D digital imaging was performed. COMPARISON: CR,XR XR CHEST 2V PA LATERAL from 09/18/2020 FINDINGS: Heart size is normal. The mediastinum is not widened. Right lung is clear. There is platelike atelectasis in the left lung base. No pleural effusion IMPRESSION: There is platelike atelectasis in the left lung base, more so than previous. No pleural effusions. Opposite-right lung is clear. DATA REPOSITORY: RADIATION DOSE DELIVERED:
--- NOTE | 2020-11-13 14:15 | DI.US_ITS ---
EXAM: US ABDOMEN LIMITED CLINICAL HISTORY: RUQ discomfort TECHNIQUE: Ultrasound abdomen performed using standard protocol. COMPARISON: CT CT ABDOMEN PELVIS W from 09/08/[address] ABDOMEN PELVIS W from 09/08/2020 FINDINGS: There is no ascites evident. LIVER: Liver is slightly hyperechoic indicating an element of steatosis. There are a few small sub c m cysts in the liver, seen on the recent CT scan of August 2020.. In addition, there is a subcapsu lar lesion measuring approximately 1.4 x 1.3 cm which does not have the appearance of a simple cyst a nd which corresponds to the finding described on the CT scan 09/08/2020. This does not have typical hyperechoic ultrasound appearance of a benign hepatic hemangioma GALLBLADDER/BILIARY: There are no gallstones. No gallbladder wall edema nor pericholecystic fluid. The common hepatic duct isnot dilated, measuring 3mm at the level of kamilla hepatis. PANCREAS: There is no evidence of pancreatic mass nor dilatation of the pancreatic duct. RIGHT KIDNEY:No evidence of solid mass, calculus, nor hydronephrosis. No cortical cysts evident. ABDOMINAL AORTA AND IVC: Visualized portions exhibit normal caliber. IMPRESSION: 1. No evidence of cholelithiasis nor dilatation of the biliary tree. 2. In addition to a few small benign sub cm hepatic cysts there is also a 14 x 13 millimeter right h epatic lobe lesion which corresponds to the finding recently described on CT scan of September 08 1. This does not have the typical ultrasound hyperechoic appearance of a cavernous hemangioma. Ther efore, appropriate follow-up would be MRI without and with IV gadolinium injection using hemangioma p rotocol. 3. There is no ascites. DATA REPOSITORY:
== END 2020-11-13 16:20 | disposition home or self-care (01) ==
PROVIDERS: Emergency Provider Physician Assistant; PCP Family Medicine
DX: R74.01 Elevation of levels of liver transaminase levels (principal); R07.81 Pleurodynia; R93.2 Abnormal findings on diagnostic imaging of liver and biliary tract
CPT/HCPCS: 36415; 80053; 93005; 99285; 71046; 76705; 81003; 83735; 84484; 85025; 93010

== ENCOUNTER 2020-11-15 03:29 | Outpatient (CLI) | payer MEDICAID, SELFPAY ==
--- NOTE | 2020-11-15 | DI.MRI_ITS ---
EXAM: MR ABDOMEN WO/W CLINICAL HISTORY: F/U ABNL CT, NEW HEPATIC CYSTS, K76.89 TECHNIQUE: Multiplanar multisequence MRI of the Abdomen was performed. CONTRAST MATERIAL: IV Contrast: 20 mL of Dotarem contrast administered. COMPARISON: CT ABD PELVIS WITH CONTRAST from 09/22/2014 CT ABD PELVIS WITH CONTRAST from 09/22/[address] CHEST PE CTA from 05/30/[address] ABDOMEN PELVIS W from 09/08/[address] ABDOMEN PELVIS W from 09/08/2020 US US ABDOMEN LIMITED from 11/13/2020 US US ABDOMEN LIMITED from 11/13/2020 FINDINGS: Liver: Innumerable tiny circumscribed high-intensity foci throughout the liver which are much more ev ident when compared with previous CT. Findings could represent tiny cysts versus biliary hamartomas. 1.4 centimeter homogeneous enhancing lesion inferior lateral right lobe of the liver. The enhancem ent pattern is not consistent with a hemangioma. There is no fatty component. The findings could re present an adenoma, biliary hamartoma or focal nodular hyperplasia. Due to its small size, the imagi ng characteristics are nonspecific. Pancreas: Unremarkable. Gallbladder and Bile Ducts: Unremarkable. Adrenals: Unremarkable. Kidneys: Unremarkable. Spleen: Unremarkable. Aorta: Unremarkable. Soft Tissues: Unremarkable. Bone: Unremarkable. Lymph Nodes: Unremarkable. IMPRESSION: 1.4 centimeter homogeneously enhancing lesion in the inferior right lobe of the liver. The imaging f indings are non-specific due to small size. Innumerable cystic lesions are seen throughout the liver which could represent biliary hamartomas eren acacia multiple cysts.. DATA REPOSITORY:
[2020-11-15] MEDS: Gadoterate meglumine 20 ML VIAL IVP (08:59)
== END 2020-11-15 03:49 ==
PROVIDERS: PCP Family Medicine; Visit Provider Family Medicine
DX: K76.89 Other specified diseases of liver (principal)
CPT/HCPCS: 74183

== ENCOUNTER 2020-11-23 10:09 | Outpatient (REF) | payer MEDICAID, SELFPAY ==
[2020-11-25 12:44] LABS: COVID-19 RT-PCR UVMMC Result Positive (Negative)
== END 2020-11-23 10:10 | disposition home or self-care (01) ==
LOC: LBN 10:09
PROVIDERS: PCP Family Medicine; Visit Provider Physician Assistant Medical
DX: Z20.822 Contact with and (suspected) exposure to COVID-19 (principal); J06.9 Acute upper respiratory infection, unspecified
CPT/HCPCS: U0003

== ENCOUNTER 2020-11-23 20:54 | Emergency (ER) | payer MEDICAID, SELFPAY ==
[2020-11-23 21:00] VITALS: PULSE 120; RESP 18; TEMP 39.1; O2SAT 96
--- NOTE | 2020-11-23 21:00 | ED.GENADUL_ITS ---
Discharge Plan Disposition Patient Disposition: HOME Condition: Good Discharge Details Clinical Impression: Post-immunization reaction Primary Care Provider: Tony Dao ED Provider: Colin Mccall [place] Meds and New Rx's Prescriptions: Continued naproxen 500 mg tablet 500 mg PO QHS RF: 0 cyclobenzaprine 10 mg tablet 10 mg PO TID PRN (Reason: muscle spasm) Qty: 90 RF: 2 amitriptyline 50 mg tablet 50 mg PO QHS PRN (Reason: insomnia) Qty: 90 RF: 3 esomeprazole magnesium [Nexium] 40 mg capsule,delayed release(DR/EC) 40 mg PO DAILY Qty: 90 RF: 3 nitroglycerin 0.4 mg tablet, sublingual 0.4 mg sublingual Q5M PRN (Reason: chest pain) Qty: 30 RF: 0 albuterol sulfate [Ventolin HFA] 90 mcg/actuation HFA aerosol inhaler 2 puff inhalation Q6H PRN (Reason: shortness of breath or wheezing) Qty: 18 RF: 6 Discharge Instructions Additional Instructions: This is an expected reaction to the Covid vaccine. Fever, chills, body aches, malaise, headache are common though typically short lived. Hopefully your reaction resolved over the next 24 hours. You may alternate acetaminophen with ibuprofen as we discussed. Get some rest and drink plenty of fluids. Follow-up with primary care next week if continued symptoms. Return to ED for mental status/neurologic change, severe worsening headache, difficulty breathing, abdominal pain. Referrals: Tony Dao DO [Primary Care Provider] - Medical Decision Making Patient febrile here to 102.4 with tachycardia 120. Quite anxious and suspect the tachycardia is related to the fever and the anxiety. This is most likely immune reaction to the Covid vaccine he received on the . Little prolonged compared to what would typically expect but not outside of around. Covid swab is already been sent this morning. Will give Tylenol and observe and reassure. 22:45 - Patient heart rate in fever down with Tylenol. No other new complaints. No respiratory symptoms with clear lungs and normal sats. No GI symptoms. Recommend oral hydration and alternating acetaminophen with ibuprofen and should feel better hopefully at the end of the weekend. Follow-up with primary care next week if continued symptoms. Return to ED for mental status changes, severe headache, difficulty breathing, abdominal pain, other concerns. HPI General Mode of arrival: EMS . Date/Time Provider Initiated Documentation: 11/23/20 21:00 . Limitations to Documentation: no limitations . Information obtained by: patient and EMS . HPI Narrative: Patient presents to ED with persistent fever, chills, malaise, body aches, headache. He was seen in urgent care earlier today and Covid swab sent. He received his Covid shot on the . First 24 hours he felt fine other than a sore arm. Arm now feels fine but he has developed above symptoms which have been present now for almost 36 hours. He has not taken any Tylenol or Motrin since this morning. He denies any vomiting or diarrhea. He has a little bit of a cough but no shortness of breath. He called EMS and asked to brought here to be reevaluated. Related Data Home Medications Medication Instructions Recorded Confirmed esomeprazole magnesium 40 mg 40 mg PO DAILY #90 cap 01/12/20 11/23/20 capsule,delayed release cyclobenzaprine 10 mg tablet 10 mg PO TID PRN #90 tab 05/03/20 11/23/20 nitroglycerin 0.4 mg sublingual 0.4 mg SUBLINGUAL Q5M PRN #30 tab 08/29/20 11/23/20 tablet amitriptyline 50 mg tablet 50 mg PO QHS PRN #90 tab 10/18/20 11/23/20 naproxen 500 mg tablet 500 mg PO QHS tab 11/06/20 11/23/20 albuterol sulfate 90 mcg/actuation 2 puff INHALATION Q6H PRN #18 gm 11/13/20 11/23/20 aerosol inhaler Previous Rx's Medication Instructions Recorded esomeprazole magnesium 40 mg 40 mg PO DAILY #90 cap 01/12/20 capsule,delayed release cyclobenzaprine 10 mg tablet 10 mg PO TID PRN #90 tab 05/03/20 nitroglycerin 0.4 mg sublingual 0.4 mg SUBLINGUAL Q5M PRN #30 tab 08/29/20 tablet amitriptyline 50 mg tablet 50 mg PO QHS PRN #90 tab 10/18/20 albuterol sulfate 90 mcg/actuation 2 puff INHALATION Q6H PRN #18 gm 11/13/20 aerosol inhaler Allergies Allergy/AdvReac Type Severity Reaction Status Date / Time No Known Allergies Allergy Verified 11/23/20 21:06 General FAITH: 2 Review of Systems Narrative: As documented in HPI otherwise negative as below. Const: fever, chills, weakness Resp: no SOB, pleuritic pain CV: no CP, edema, syncope GI: no abdominal pain, nausea, vomiting, diarrhea Neuro: no numbness, focal weakness, confusion PFSH Medical History Asthma BRBPR (bright red blood per rectum) Depression Dyspepsia Elevated fasting glucose Esophagitis determined by endoscopy Essential hypertension Excessive sleepiness Family history of colon cancer Mother, age 53 Family history of pancreatic cancer Hepatic cyst Hiatal hernia with gastroesophageal reflux Insomnia Leg length discrepancy Scoliosis Surgical History History of colonoscopy (~09/13/20) History of esophagogastroduodenoscopy (EGD) (~09/13/20) Hx of esophagogastroduodenoscopy Spring 2019 No significant past surgical history Family History Maternal Grandmother Pancreatic cancer Diabetes Paternal Grandmother Diabetes Father Heart disease Hypertension Mother Colon cancer Social History Smoking/Tobacco Use Status: Former Tobacco Use Quit Date: 06/25/20 Tobacco: How many years used: 10 Second Hand Exposure: No Smoking risk assessment performed?: Yes Alcohol Intake: never Drug use: Never Substance use type: does not use Adopted: Yes Caregiver/Support person: No Foster care: Yes Household members: significant other Housing: apartment Number of Children: 0 Communication Needs: None Education Level: high school Do you need help understanding health information?: Never current occupation: [employer] Pets and animals: Yes Pets and animals: cat(s) and bird(s) Sexually active: No Do you think of yourself as: Decline to Provide Current gender identity: male What is your relationship status?: living with partner How often do you get together with friends or relatives?: twice per week How often do you attend oriental orthodox or religion services?: decline to answer Do you belong to any clubs or organized social groups?: no Panel score (0-1 are the most socially isolated patients): 1 What type of physical activity do you participate in: walking and independent ambulation Frequency: 1-2 times per week Stefanie/Nondenominational: No preference Special stefanie needs: No Agree to transfusion: Yes Seatbelt use: sometimes Helmet use: No 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 Normal facial exam. Eyes: Normal conjunctiva and sclera. Neck: Supple. Trachea midline. Lungs: Normal respiratory effort. Lungs are clear. Cor: RRR without murmur/gallop. Good radial pulses. Neuro: A+O x 3. Normal speech, mentation, gait. Cranial nerves II - XII grossly intact. No gross motor or sensory deficit. Ext: No C/C/E. Injection site in right deltoid looks fine. No erythema or swelling. Skin: Warm and dry without rash.
[2020-11-23] MEDS: Acetaminophen 500 MG TAB 1000 MG PO (21:11)
[2020-11-23 22:15] VITALS: BP 129/78; PULSE 108; RESP 20; TEMP 38.6; O2SAT 98
[2020-11-23 22:45] VITALS: BP 135/70; PULSE 113; RESP 20; TEMP 37.6; O2SAT 98
[2020-11-23 23:08] VITALS: BP 133/73; PULSE 116; RESP 20; TEMP 37.6; O2SAT 98
== END 2020-11-23 23:15 | disposition home or self-care (01) ==
PROVIDERS: Emergency Provider Emergency Medicine; PCP Family Medicine
DX: R50.83 Postvaccination fever (principal); M79.10 Myalgia, unspecified site; R51.9 Headache, unspecified; T50.Z95A Adverse effect of other vaccines and biological substances, initial encounter
CPT/HCPCS: 99282; 99283

== ENCOUNTER 2020-11-28 18:10 | Emergency (ER) | payer MEDICAID, SELFPAY ==
[2020-11-28] VITALS (36 sets, daily range): BP systolic 106–135; BP diastolic 66–84; PULSE 94–116; RESP 16–28; TEMP 36.6; O2SAT 95–100
[2020-11-28] MEDS: Normal Saline 1,000 ML 1000 ML IV ×2 (18:15→20:06)
--- NOTE | 2020-11-28 18:15 | DI.RAD_ITS ---
Exam(s) XR PORTABLE CHEST AP EXAM: XR PORTABLE CHEST AP CLINICAL HISTORY: Covid +, cough TECHNIQUE: 2D digital imaging was performed. COMPARISON: CR XR CHEST 2V PA LATERAL from 11/13/2020 FINDINGS: MEDIASTINUM: Normal. HEART: Normal. PULMONARY VASCULATURE: Normal. LUNGS: There are opacities seen in the right mid lung in the left lung base suspicious for pneumonia. PLEURAL SPACE: No pleural effusion or pneumothorax. BONE:Within normal limits for the patient's age. OTHER FINDINGS:Normal. IMPRESSION: Multifocal pneumonia. DATA REPOSITORY: RADIATION DOSE DELIVERED:
--- NOTE | 2020-11-28 18:15 | RT.EKG_ITS ---
APPROVED REPORT Exam: Resting ECG Reason for Exam: covid +, tachy Patient Location: E HR:107 bpm ECG Measurements Heart Rate 107 AXIS [place] 147 P 48 QRSd 83 QRS 31 QT 318 T 50 QTc 425 Conclusion Sinus tachycardia...rate> 99
--- NOTE | 2020-11-28 18:28 | ED.GENADUL_ITS ---
Discharge Plan Disposition Patient Disposition: HOME Condition: Stable Discharge Details Clinical Impression: Pneumonia, COVID-19 Primary Care Provider: Tony Dao ED Provider: Maciej Beck Home Meds and New Rx's Prescriptions: New doxycycline hyclate 100 mg capsule 100 mg PO BID Qty: 20 RF: 0 Continued naproxen 500 mg tablet 500 mg PO QHS RF: 0 amitriptyline 50 mg tablet 50 mg PO QHS PRN (Reason: insomnia) Qty: 90 RF: 3 esomeprazole magnesium [Nexium] 40 mg capsule,delayed release(DR/EC) 40 mg PO DAILY Qty: 90 RF: 3 nitroglycerin 0.4 mg tablet, sublingual 0.4 mg sublingual Q5M PRN (Reason: chest pain) Qty: 30 RF: 0 albuterol sulfate [Ventolin HFA] 90 mcg/actuation HFA aerosol inhaler 2 puff inhalation Q6H PRN (Reason: shortness of breath or wheezing) Qty: 18 RF: 6 acetaminophen 500 mg Tablet 1,000 mg PO PRN PRNRF: 0 ibuprofen [Advil] 200 mg Tablet 400 mg PO PRN PRNRF: 0 Discharge Instructions Instructions: Pneumonia (ED), COVID-19 (Coronavirus Disease 2019) (ED) Additional Instructions: Laboratory values do not reveal any obvious emergent process. Your oxygen level here in the ER is appropriate. X-ray revealed pneumonia. You have already been diagnosed with Covid. For the pneumonia I would like you take doxycycline as directed. Rest, plenty of fluids to avoid dehydration. [id number] medications as directed for symptomatic control. Please watch for new or worsening symptoms and return to the ER for any concerns. Please continue monitoring her oxygen level at home, if your oxygen levels are consistently below 90 is a clear indication return to the ER. I do recommend contacting your primary care provider tomorrow to discuss your ER evaluation and ongoing outpatient needs and likely need for telemedicine follow-up. Given you have Covid, you are contagious, and should continue to quarantine until you are completely asymptomatic. Medical Decision Making This is a 30-year-old male, reports general illness that began 7 days ago, he received his first Covid vaccine 8 days ago. He reports that he was at home with his girlfriend but given his overall illness he is having a hard time caring for himself at home. He reports it takes a great deal of effort to simply get off the couch and going to the kitchen. He has been alternating between Tylenol and Motrin. Concerned about his decreased appetite, oral intake, possible dehydration. Clinically he has mild tachycardia otherwise he appears well, nontoxic. O2 sats are 95% on room air, lungs are clear to auscultation, he is afebrile. Patient is Covid positive as of 7 days ago. Symptoms certainly are consistent with Covid and again he appears well, nontoxic. Will obtain IV access, give IV fluids, obtain CBC, CMP, chest x-ray Patient requesting dinner. Patient given p.o. dinner without difficulty. Laboratory values do not reveal any obvious emergent process. Chest x-ray read by radiology as FEL opacities consistent with multifocal pneumonia in the peripheral right midlung and left base. Given his x-ray findings, will initiate p.o. doxycycline therapy. Discussed laboratory values and chest x-ray with patient. Given his age, being afebrile, appropriate O2 sat, etc. I do believe that patient can be safely trialed as an outpatient on p.o. antibiotics. Upon reevaluation heart rate was 96. Patient later tells me that he does not have a ride home, is slightly anxious, and is not sure of his disposition. He was eventually able to obtain a ride home without difficulty. Medical Records Medical records reviewed: Yes I reviewed the patient's medical records. Imaging Data Radiologic Study: Attestation: I personally reviewed and interpreted this imaging study as follows: Imaging: X-Ray Radiologist's impression: Alveolar opacities consistent with multifocal pneumonia in the peripheral right midlung and left base Lab Data Lab results reviewed: Yes I reviewed the patient's lab results. Labs: Laboratory Tests Range/Units 11/28/20 11/28/20 18:15 18:15 WBC (4.4-10.8) 10^3/uL 4.86 RBC (4.36-5.78) 10^6/uL 5.33 Hgb (13.5-17.5) g/dL 16.1 Hct (40.0-50.0) % 45.4 MCV (80-95) fL 85.2 MCH (27.0-33.0) pg 30.2 MCHC (32.0-36.0) % 35.5 RDW (11.8-14.1) % 12.4 Plt Count (130-400) 10^3/uL 168 MPV (8.0-11.0) fL 10.7 Immature Gran % 0.2 Neutrophils % 68.3 Lymphocytes % 25.1 Monocytes % 6.0 Eosinophils % 0.0 Basophils % 0.4 Nucleated RBC % % 0 Absolute Neutrophils (1.2-6.7) 10^3/uL 3.32 Absolute Lymphocytes (1.2-3.4) 10^3/uL 1.22 Absolute Monocytes (0.1-0.8) 10^3/uL 0.29 Absolute Eosinophils (0.0-0.7) 10^3/uL 0.00 Absolute Basophils (0.0-0.2) 10^3/uL 0.02 Sodium (136-145) mmol/L 141 Potassium (3.5-5.1) mmol/L 3.4 L Chloride (98-107) mmol/L 106 Carbon Dioxide (21.0-32.0) mmol/L 22.9 Anion Gap (3-11) mmol/L 12.1 H BUN (7-18) mg/dL 13 Creatinine (0.70-1.30) mg/dL 1.1 Estimated GFR/1.73 m2 (mL/min/1.73m2) >= 60.00 Glucose (74-106) mg/dL 113 H Calcium (8.5-10.1) mg/dL 8.4 L Total Bilirubin (0.2-1.0) mg/dL 0.6 AST (15-37) U/L 109 H ALT (16-63) U/L 94 H Alkaline Phosphatase (46-116) U/L 60 Total Protein (6.4-8.2) g/dL 7.4 Albumin (3.4-5.0) g/dL 3.5 ECG Data Attestation: I personally reviewed and interpreted this ECG (s) as follows: Interpretation: Please see official report by Dr. Barajas. Sinus tachycardia, ventricular rate of 107. HPI General Mode of arrival: EMS . Date/Time Provider Initiated Documentation: 11/28/20 18:21 . Limitations to Documentation: no limitations . Information obtained by: patient and EMS . HPI Narrative: This is a 30-year-old male with past medical history of asthma, depression, hypertension, received his first Moderna vaccine 8 days ago. He reports that he has not been feeling well for the past 7 days and then subsequently was diagnosed with Covid. Patient reports that he has been resting, alternating between Tylenol and Motrin, and quarantining at home. Patient reports that he lives at home with his girlfriend who also has Covid. He states that he simply does not feel well, and is having a hard time caring for himself. He reports general malaise, fatigue, body aches, mild dry cough. He denies any headache, visual changes, neck pain, productive cough, chest pain, shortness of breath, abdominal pain, nausea, vomiting, change in bowel or bladder function, skin rash. He reports decreased appetite and concern for dehydration. He states that it takes a great deal of effort to simply get off the couch and walk into the kitchen. He does have a home O2 monitor and his O2 sats have been in the mid to high 90s. He has not had a fever in the past 5 days. Related Data Home Medications Medication Instructions Recorded Confirmed esomeprazole magnesium 40 mg 40 mg PO DAILY #90 cap 01/12/20 11/28/20 capsule,delayed release nitroglycerin 0.4 mg sublingual 0.4 mg SUBLINGUAL Q5M PRN #30 tab 08/29/20 11/28/20 tablet amitriptyline 50 mg tablet 50 mg PO QHS PRN #90 tab 10/18/20 11/28/20 naproxen 500 mg tablet 500 mg PO QHS tab 11/06/20 11/28/20 albuterol sulfate 90 mcg/actuation 2 puff INHALATION Q6H PRN #18 gm 11/13/20 11/28/20 aerosol inhaler acetaminophen 1,000 mg PO PRN PRN 11/28/20 11/28/20 doxycycline hyclate 100 mg PO BID #20 cap 11/28/20 ibuprofen [Advil] 400 mg PO PRN PRN 11/28/20 11/28/20 Previous Rx's Medication Instructions Recorded esomeprazole magnesium 40 mg 40 mg PO DAILY #90 cap 01/12/20 capsule,delayed release nitroglycerin 0.4 mg sublingual 0.4 mg SUBLINGUAL Q5M PRN #30 tab 08/29/20 tablet amitriptyline 50 mg tablet 50 mg PO QHS PRN #90 tab 10/18/20 albuterol sulfate 90 mcg/actuation 2 puff INHALATION Q6H PRN #18 gm 11/13/20 aerosol inhaler doxycycline hyclate 100 mg PO BID #20 cap 11/28/20 Allergies Allergy/AdvReac Type Severity Reaction Status Date / Time No Known Allergies Allergy Verified 11/28/20 18:18 General Stated Complaint: Dizzy/Sync FAITH: 2 Review of Systems Constitutional Constitutional: Reports fatigue, Denies fever(s) and Denies headache(s) ENT Ears, Nose, Mouth, and Throat: Denies headache(s) and Denies neck pain Cardiovascular Cardiovascular: Denies chest pain and Denies dyspnea Respiratory Respiratory: Reports cough and Denies dyspnea Gastrointestinal Gastrointestinal: Denies abdominal pain, Denies nausea and Denies vomiting Genitourinary Genitourinary: Denies dysuria Musculoskeletal Musculoskeletal: Reports myalgias and Denies neck pain Integumentary/Breasts Skin/Breast: Denies rash Neurologic Neurologic: Denies headache(s) and Reports weakness (General) Endocrine Endocrine: Reports fatigue PFSH Medical History Asthma BRBPR (bright red blood per rectum) Depression Dyspepsia Elevated fasting glucose Esophagitis determined by endoscopy Essential hypertension Excessive sleepiness Family history of colon cancer Mother, age 53 Family history of pancreatic cancer Hepatic cyst Hiatal hernia with gastroesophageal reflux Insomnia Leg length discrepancy Scoliosis Surgical History History of colonoscopy (~09/13/20) History of esophagogastroduodenoscopy (EGD) (~09/13/20) Hx of esophagogastroduodenoscopy Spring 2019 No significant past surgical history Family History Maternal Grandmother Pancreatic cancer Diabetes Paternal Grandmother Diabetes Father Heart disease Hypertension Mother Colon cancer Social History Smoking/Tobacco Use Status: Former Tobacco Use Quit Date: 06/25/20 Tobacco: How many years used: 10 Second Hand Exposure: No Smoking risk assessment performed?: Yes Alcohol Intake: never Drug use: Never Substance use type: does not use Adopted: Yes Caregiver/Support person: No Foster care: Yes Household members: significant other Housing: apartment Number of Children: 0 Communication Needs: None Education Level: high school Do you need help understanding health information?: Never current occupation: [employer] Pets and animals: Yes Pets and animals: cat(s) and bird(s) Sexually active: No Do you think of yourself as: Decline to Provide Current gender identity: male What is your relationship status?: living with partner How often do you get together with friends or relatives?: twice per week How often do you attend episcopalian or nondenominational services?: decline to answer Do you belong to any clubs or organized social groups?: no Panel score (0-1 are the most socially isolated patients): 1 What type of physical activity do you participate in: walking and independent ambulation Frequency: 1-2 times per week Stefanie/Druze: No preference Special stefanie needs: No Agree to transfusion: Yes Seatbelt use: sometimes Helmet use: No Drive intox or ride w/intox hearse driver: No Working smoke detector in home: Yes Fire extinguisher in home: Yes Carbon monox detector in home: Yes Firearms in home: No Do you feel safe at home: Yes Do you feel safe in your relationship?: Yes Exam Const General: cooperative, healthy appearing, comfortable and no acute distress Orientation: alert and awake [facility] Head: normal to inspection, normocephalic and atraumatic Mouth: moist mucous membranes abnormal (Slightly dry) Eyes General: appearance normal, both eyes and all related structures Conjunctivae: conjunctivae normal Neck Neck: normal visual inspection, full ROM, no lymphadenopathy, no meningeal signs, trachea midline, supple and nontender Resp Effort & Inspection: normal respiratory effort and able to speak in complete sentences Auscultation: clear to auscultation bilaterally Cardio Rate: tachycardic (104) Rhythm: regular rhythm GI Palpation: soft and nontender Back/Spine/Pelvis Back: No back tenderness Skin General skin exam: no rashes or lesions noted Neuro General: patient alert, patient awake, moves all extremities and no focal motor deficits Cognition: normal cognition Speech: speech normal Gait: normal gait Motor: muscle tone normal throughout Sensory Exam: no sensory deficits noted Extrem General: normal to inspection, full ROM, capillary refill normal, no pedal edema and no calf tenderness Psych Appearance: grossly normal Mental Status: mental status grossly normal Course Vital Signs Vital signs: Vital Signs Temperature 36.6 C 11/28/20 18:13 Pulse 113 H 11/28/20 18:13 Respiratory Rate 20 11/28/20 18:13 Blood Pressure 122/80 11/28/20 18:13 Pulse Oximetry 95 11/28/20 18:13 Temperature 36.6 C 11/28/20 18:13 Temperature Source Tympanic 11/28/20 18:13 Pulse 113 H 11/28/20 18:13 Respiratory Rate 20 11/28/20 18:13 Blood Pressure 122/80 11/28/20 18:13 Blood Pressure Position Sitting 11/28/20 18:13 Pulse Oximetry 95 11/28/20 18:13 Oxygen Delivery Method Room Air 11/28/20 18:13 Oxygen Flow Rate 0 11/28/20 18:13 Pain Level 0 11/28/20 18:13
[2020-11-28 18:34] LABS: Abs Immature Grans 0.01 10^3/uL (0.0-0.06); Absolute Basophil Count 0.02 10^3/uL (0.0-0.2); Absolute Lymphocyte Count 1.22 10^3/uL (1.2-3.4); Absolute Monocyte Count 0.29 10^3/uL (0.1-0.8); Absolute Neutrophil Count 3.32 10^3/uL (1.2-6.7); Basophils % 0.4; HCT 45.4 % (40.0-50.0); HGB 16.1 g/dL (13.5-17.5); Immature Grans % 0.2; Lymphocytes % 25.1; MCH 30.2 pg (27.0-33.0); MCHC 35.5 % (32.0-36.0); MCV 85.2 fL (80-95); MPV 10.7 fL (8.0-11.0); Neutrophils % 68.3; Nucleated RBC 0 %; Platelet Count 168 10^3/uL (130-400); RBC 5.33 10^6/uL (4.36-5.78); RDW 12.4 % (11.8-14.1); RDW-SD 38.3 fL; WBC 4.86 10^3/uL (4.4-10.8)
[2020-11-28 18:55] LABS: ALT 94 U/L (16-63); AST 109 U/L (15-37); Albumin 3.5 g/dL (3.4-5.0); Alkaline Phosphatase 60 U/L (46-116); Anion Gap 12.1 mmol/L (3-11); BUN 13 mg/dL (7-18); Bilirubin, Total 0.6 mg/dL (0.2-1.0); CO2 22.9 mmol/L (21.0-32.0); CREATININE 1.1 mg/dL (0.70-1.30); Calcium 8.4 mg/dL (8.5-10.1); Chloride 106 mmol/L (98-107); Glucose 113 mg/dL (74-106); Potassium 3.4 mmol/L (3.5-5.1); Sodium 141 mmol/L (136-145); Total Protein 7.4 g/dL (6.4-8.2)
[2020-11-28] MEDS: Ketorolac 30 MG/ML VIAL IVP (19:06)
--- NOTE | 2020-11-28 19:59 | DI.VRAD_ITS ---
PROCEDURE INFORMATION: Exam: XR Chest Exam date and time: 11/28/2020 6:23 PM Age: 30 years old Clinical indication: Other: Covid positive patient TECHNIQUE: Imaging protocol: XR of the chest. Views: 1 view. Total images: 2 COMPARISON: CR XR CHEST 2V PA LATERAL 11/13/2020 1:41 PM FINDINGS: Lungs: Normal pulmonary expansion. Pulmonary vasculature grossly normal. Alveolar opacities in the peripheral right mid lung and left base consistent with multifocal pneumonia. Mild bandlike atelectasis or scarring in the left base. Pleural spaces: No pleural effusion. No pneumothorax. Heart/Mediastinum: Heart size normal. No tracheal/mediastinal shift. Bones/joints: No acute osseous abnormalities are identified. IMPRESSION: Alveolar opacities consistent with multifocal pneumonia in the peripheral right mid lung and left base. Dictated and Authenticated by: Miguel Lock MD. Ordering:BASIA Wing MD
[2020-11-28] MEDS: Doxycycline Hyclate 100 MG CAP PO (20:23)
== END 2020-11-28 21:48 | disposition home or self-care (01) ==
PROVIDERS: Emergency Provider Physician Assistant; PCP Family Medicine
DX: U07.1 COVID-19 (principal); J12.82 Pneumonia due to coronavirus disease 2019
CPT/HCPCS: 80053; 93005; 96361; 96374; 99284; 71045; 85025; 93010; 99283; J1885

== ENCOUNTER 2020-12-21 17:51 | Emergency (ER) | payer MEDICAID, SELFPAY ==
[2020-12-21] VITALS (20 sets, daily range): BP systolic 115–148; BP diastolic 65–84; PULSE 77–114; RESP 16–20; TEMP 36.6; O2SAT 96–98
--- NOTE | 2020-12-21 18:45 | RT.EKG_ITS ---
APPROVED REPORT Exam: Resting ECG Reason for Exam: chest pain Patient Location: E HR:76 bpm ECG Measurements Heart Rate 76 AXIS [place] 183 P 44 QRSd 91 QRS 31 QT 341 T 19 QTc 384 Conclusion Sinus rhythm...normal P axis, V-rate 60- 99 Normal [place] Normal Electrocardiogram
[2020-12-21] MEDS: Acetaminophen 325 MG TAB 650 MG PO (19:05)
[2020-12-21 19:34] LABS: Abs Immature Grans 0.02 10^3/uL (0.0-0.06); Absolute Basophil Count 0.04 10^3/uL (0.0-0.2); Absolute Eosinophil Count 0.29 10^3/uL (0.0-0.7); Absolute Lymphocyte Count 1.92 10^3/uL (1.2-3.4); Absolute Monocyte Count 0.72 10^3/uL (0.1-0.8); Absolute Neutrophil Count 3.92 10^3/uL (1.2-6.7); Basophils % 0.6; Eosinophils % 4.2; HGB 15.4 g/dL (13.5-17.5); Immature Grans % 0.3; Lymphocytes % 27.8; MCH 30.1 pg (27.0-33.0); MCV 85.9 fL (80-95); Monocytes % 10.4; Neutrophils % 56.7; Nucleated RBC 0 %; Platelet Count 213 10^3/uL (130-400); RBC 5.12 10^6/uL (4.36-5.78); RDW 12.9 % (11.8-14.1); RDW-SD 40.2 fL; WBC 6.91 10^3/uL (4.4-10.8)
[2020-12-21 19:50] LABS: ALT 108 U/L (16-63); AST 40 U/L (15-37); Albumin 3.8 g/dL (3.4-5.0); Alkaline Phosphatase 75 U/L (46-116); Anion Gap 7.3 mmol/L (3-11); BUN 8 mg/dL (7-18); Bilirubin, Total 0.7 mg/dL (0.2-1.0); CO2 27.7 mmol/L (21.0-32.0); CREATININE 1.1 mg/dL (0.70-1.30); Calcium 8.8 mg/dL (8.5-10.1); Chloride 107 mmol/L (98-107); Glucose 102 mg/dL (74-106); Potassium 3.5 mmol/L (3.5-5.1); Sodium 142 mmol/L (136-145); Total Protein 7.4 g/dL (6.4-8.2)
[2020-12-21 19:51] LABS: Troponin I < 0.05 ng/mL (<0.06)
[2020-12-21 20:06] LABS: Lipase 139 U/L (73-393)
--- NOTE | 2020-12-21 20:07 | W.ED.GENAD ---
Discharge Plan Disposition Patient Disposition: HOME Condition: Good Discharge Details Clinical Impression: Bronchitis Primary Care Provider: Tony Dao ED Provider: Danielle Dunn Home Meds and New Rx's Prescriptions: New prednisone 20 mg tablet 40 mg PO DAILY Qty: 10 RF: 0 No Action naproxen 500 mg tablet 500 mg PO QHS RF: 0 amitriptyline 50 mg tablet 50 mg PO QHS PRN (Reason: insomnia) Qty: 90 RF: 3 nitroglycerin 0.4 mg tablet, sublingual 0.4 mg sublingual Q5M PRN (Reason: chest pain) Qty: 30 RF: 0 albuterol sulfate [Ventolin HFA] 90 mcg/actuation HFA aerosol inhaler 2 puff inhalation Q6H PRN (Reason: shortness of breath or wheezing) Qty: 18 RF: 6 omeprazole 20 mg tablet,delayed release (DR/EC) 20 mg PO DAILY PRN (Reason: reflux of heartburn) Qty: 90 RF: 3 acetaminophen 500 mg Tablet 1,000 mg PO PRN PRNRF: 0 ibuprofen [Advil] 200 mg Tablet 400 mg PO PRN PRNRF: 0 doxycycline hyclate 100 mg capsule 100 mg PO BID Qty: 20 RF: 0 Discharge Instructions Instructions: Acute Bronchitis (ED) Additional Instructions: Take prednisone for the neck several days, I recommend 3 days Follow-up with your primary care physician, use your inhaler as instructed Return earlier should you have new or worsening complaints Medical Decision Making Patient is alert oriented with stable vitals Chest x-ray does not show acute pathology D-dimer negative Placed on prednisone for 3 days tear help with shortness of breath and persistent cough Will take inhalers at home Troponin negative with symptoms greater than 6 hours, 1 troponin is reasonable given patient relatively low risk with a heart score of 2 Return precautions discussed and patient expressed understanding, chest x-ray per radiology interpretation does not show evidence of pneumonia Return cautions discussed and patient expressed understanding Close outpatient follow-up with PCP recommended No pneumothorax per radiology interpretation of my review Ambulatory oxygenation 98% on room air, stable for discharge home Differential Diagnosis Differential Diagnosis: Pneumonia, bronchitis, pulmonary embolism, pneumothorax Medical Records Medical records reviewed: Yes I reviewed the patient's medical records. Lab Data Lab results reviewed: Yes I reviewed the patient's lab results. HPI General Mode of arrival: ambulatory. Date/Time Provider Initiated Documentation: 12/21/20 17:53. Limitations to Documentation: no limitations. Information obtained by: patient. HPI Narrative: This 30-year-old male with history of pneumonia, COVID-19, pleuritic chest pain, hypertension presents with reports of chest pain and shortness of breath. Patient states he has chest pain for the past several years, however he was nervous of view of recent pneumonia likely Covid related. He was diagnosed with Covid 19 at the beginning of November. He did take a complete course of doxycycline. He does have a history of asthma and has been using his inhaler today which help with his symptoms. He denies any current shortness of breath denies any chest pain or swelling, recent flights, surgeries, long drives, history of coagulopathy. He denies any additional complaints at this time. He denies any fever or chills. Denies tobacco use. Denies illicit drug use. Denies early family history of coronary artery disease. Related Data Home Medications Medication Instructions Recorded Confirmed nitroglycerin 0.4 mg sublingual 0.4 mg SUBLINGUAL Q5M PRN #30 tab 08/29/20 12/21/20 tablet amitriptyline 50 mg tablet 50 mg PO QHS PRN #90 tab 10/18/20 12/21/20 naproxen 500 mg tablet 500 mg PO QHS tab 11/06/20 12/21/20 albuterol sulfate 90 mcg/actuation 2 puff INHALATION Q6H PRN #18 gm 11/13/20 12/21/20 aerosol inhaler acetaminophen 1,000 mg PO PRN PRN 11/28/20 12/21/20 doxycycline hyclate 100 mg PO BID #20 cap 11/28/20 12/21/20 ibuprofen [Advil] 400 mg PO PRN PRN 11/28/20 12/21/20 omeprazole 20 mg tablet,delayed 20 mg PO DAILY PRN #90 tab 12/09/20 12/21/20 release prednisone 40 mg PO DAILY #10 tab 12/21/20 Previous Rx's Medication Instructions Recorded nitroglycerin 0.4 mg sublingual 0.4 mg SUBLINGUAL Q5M PRN #30 tab 08/29/20 tablet amitriptyline 50 mg tablet 50 mg PO QHS PRN #90 tab 10/18/20 albuterol sulfate 90 mcg/actuation 2 puff INHALATION Q6H PRN #18 gm 11/13/20 aerosol inhaler doxycycline hyclate 100 mg PO BID #20 cap 11/28/20 omeprazole 20 mg tablet,delayed 20 mg PO DAILY PRN #90 tab 12/09/20 release prednisone 40 mg PO DAILY #10 tab 12/21/20 Allergies Allergy/AdvReac Type Severity Reaction Status Date / Time No Known Allergies Allergy Verified 12/21/20 18:00 General Stated Complaint: RespSymp FAITH: 3 Review of Systems Narrative: Review of systems obtained x7 aside from where indicated in HPI [facility], [facility] Medical History Asthma BRBPR (bright red blood per rectum) Depression Dyspepsia Elevated fasting glucose Esophagitis determined by endoscopy Essential hypertension Excessive sleepiness Family history of colon cancer Mother, age 53 Family history of pancreatic cancer Hepatic cyst Hiatal hernia with gastroesophageal reflux Insomnia Leg length discrepancy Scoliosis Surgical History History of colonoscopy (~09/13/20) History of esophagogastroduodenoscopy (EGD) (~09/13/20) Hx of esophagogastroduodenoscopy Spring 2019 No significant past surgical history Family History Maternal Grandmother Pancreatic cancer Diabetes Paternal Grandmother Diabetes Father Heart disease Hypertension Mother Colon cancer Social History Smoking/Tobacco Use Status: Former Tobacco Use Quit Date: 06/25/20 Tobacco: How many years used: 10 Second Hand Exposure: No Smoking risk assessment performed?: Yes Alcohol Intake: never Drug use: Never Substance use type: does not use Adopted: Yes Caregiver/Support person: No Foster care: Yes Household members: significant other Housing: apartment Number of Children: 0 Communication Needs: None Education Level: high school Do you need help understanding health information?: Never current occupation: [employer] Pets and animals: Yes Pets and animals: cat(s) and bird(s) Sexually active: No Do you think of yourself as: Decline to Provide Current gender identity: male What is your relationship status?: living with partner How often do you get together with friends or relatives?: twice per week How often do you attend rastafarian or baptist services?: decline to answer Do you belong to any clubs or organized social groups?: no Panel score (0-1 are the most socially isolated patients): 1 What type of physical activity do you participate in: walking and independent ambulation Frequency: 1-2 times per week Stefanie/Yazdanism: No preference Special stefanie needs: No Agree to transfusion: Yes Seatbelt use: sometimes Helmet use: No Drive intox or ride w/intox charter bus driver: No Working smoke detector in home: Yes Fire extinguisher in home: Yes Carbon monox detector in home: Yes Firearms in home: No Do you feel safe at home: Yes Do you feel safe in your relationship?: Yes Exam Const Orientation: alert and oriented x3 HENMT Throat: uvula midline Eyes Pupils: PERRL Chest Chest: normal inspection of the chest Resp Effort & Inspection: normal respiratory effort Auscultation: clear to auscultation bilaterally Cardio Rate: regular rate Rhythm: regular rhythm Heart Sounds: no murmurs GI Other: Abdomen nontender Skin General skin exam: no rashes or lesions noted Neuro General: patient alert and patient oriented x3 Extrem Other: No calf swelling or tenderness appreciated on exam, distal pulses intact Course Vital Signs Vital signs: Vital Signs Temperature 36.6 C 12/21/20 17:56 Pulse 114 H 12/21/20 17:56 Respiratory Rate 20 12/21/20 17:56 Blood Pressure 148/84 H 12/21/20 17:56 Pulse Oximetry 98 12/21/20 17:56 Temperature 36.6 C 12/21/20 17:56 Temperature Source Oral 12/21/20 17:56 Pulse 114 H 12/21/20 17:56 Pulse 89 12/21/20 19:20 Respiratory Rate 20 12/21/20 17:56 Respiratory Effort Non-Labored 12/21/20 18:25 Respiratory Depth Normal 12/21/20 18:25 Blood Pressure 148/84 H 12/21/20 17:56 Blood Pressure Position Sitting 12/21/20 17:56 Pulse Oximetry 98 12/21/20 17:56 Oxygen Delivery Method Room Air 12/21/20 17:56 Oxygen Flow Rate 0 12/21/20 17:56 Pain Level 3 12/21/20 17:56 Lab/Test Results Lab/Test Results: Laboratory Tests Range/Units 12/21/20 12/21/20 12/21/20 19:15 19:15 19:15 WBC (4.4-10.8) 10^3/uL 6.91 RBC (4.36-5.78) 10^6/uL 5.12 Hgb (13.5-17.5) g/dL 15.4 Hct (40.0-50.0) % 44.0 MCV (80-95) fL 85.9 MCH (27.0-33.0) pg 30.1 MCHC (32.0-36.0) % 35.0 RDW (11.8-14.1) % 12.9 Plt Count (130-400) 10^3/uL 213 MPV (8.0-11.0) fL 11.0 Immature Gran % 0.3 Neutrophils % 56.7 Lymphocytes % 27.8 Monocytes % 10.4 Eosinophils % 4.2 Basophils % 0.6 Nucleated RBC % % 0 Absolute Neutrophils (1.2-6.7) 10^3/uL 3.92 Absolute Lymphocytes (1.2-3.4) 10^3/uL 1.92 Absolute Monocytes (0.1-0.8) 10^3/uL 0.72 Absolute Eosinophils (0.0-0.7) 10^3/uL 0.29 Absolute Basophils (0.0-0.2) 10^3/uL 0.04 Sodium (136-145) mmol/L 142 Potassium (3.5-5.1) mmol/L 3.5 Chloride (98-107) mmol/L 107 Carbon Dioxide (21.0-32.0) mmol/L 27.7 Anion Gap (3-11) mmol/L 7.3 BUN (7-18) mg/dL 8 Creatinine (0.70-1.30) mg/dL 1.1 Estimated GFR/1.73 m2 (mL/min/1.73m2) >= 60.00 Glucose (74-106) mg/dL 102 Calcium (8.5-10.1) mg/dL 8.8 Total Bilirubin (0.2-1.0) mg/dL 0.7 AST (15-37) U/L 40 H ALT (16-63) U/L 108 H Alkaline Phosphatase (46-116) U/L 75 Troponin I (<0.06) ng/mL < 0.05 Total Protein (6.4-8.2) g/dL 7.4 Albumin (3.4-5.0) g/dL 3.8 Lipase (73-393) U/L 139
[2020-12-21 20:16] LABS: D-Dimer 317 ng/mlFEU (<500)
--- NOTE | 2020-12-21 20:45 | DI.RAD_ITS ---
Exam(s) XR CHEST 2V PA LATERAL EXAM: XR CHEST 2V PA LATERAL CLINICAL HISTORY: cough TECHNIQUE: 2D digital imaging was performed. COMPARISON: CR,XR XR PORTABLE CHEST AP from 11/28/2020 FINDINGS: MEDIASTINUM: Normal. HEART: Normal. PULMONARY VASCULATURE: Normal. LUNGS: Clear. Scarring in the left lung base. PLEURAL SPACE: No pleural effusion or pneumothorax. BONE:Within normal limits for the patient's age. OTHER FINDINGS:Normal. IMPRESSION: No acute pulmonary findings. DATA REPOSITORY: RADIATION DOSE DELIVERED:
--- NOTE | 2020-12-21 21:22 | DI.VRAD_ITS ---
PROCEDURE INFORMATION: Exam: XR Chest Exam date and time: 12/21/2020 8:55 PM Age: 30 years old Clinical indication: Cough TECHNIQUE: Imaging protocol: XR of the chest. Views: 2 views. COMPARISON: CR XR PORTABLE CHEST AP 11/28/2020 7:29 PM FINDINGS: Lungs: Minimal linear scarring in the lateral left lung base. Lungs are otherwise clear. Pleural spaces: Unremarkable. No pleural effusion. No pneumothorax. Heart/Mediastinum: Unremarkable. No cardiomegaly. Bones/joints: Unremarkable. IMPRESSION: No acute abnormality. Dictated and Authenticated by: Juan Jose Michaud MD. Ordering:MEÑO Santos MD
== END 2020-12-21 22:15 | disposition home or self-care (01) ==
PROVIDERS: Emergency Provider Physician Assistant; PCP Family Medicine
DX: J44.0 Chronic obstructive pulmonary disease with (acute) lower respiratory infection (principal); J20.9 Acute bronchitis, unspecified; J45.909 Unspecified asthma, uncomplicated; Z87.891 Personal history of nicotine dependence; Z86.16 Personal history of COVID-19
CPT/HCPCS: 80053; 83690; 93005; 99285; 71046; 84484; 85025; 85379; 93010; 99284

== ENCOUNTER 2021-03-26 14:44 | Emergency (ER) | payer MEDICAID, SELFPAY ==
[2021-03-26 14:46] VITALS: BP 136/94; PULSE 85; RESP 18; O2SAT 99
--- NOTE | 2021-03-26 15:00 | DI.RAD_ITS ---
Exam(s) XR FOOT RT COMPLETE EXAM: XR FOOT RT COMPLETE CLINICAL HISTORY: Crush injury great toe pain. TECHNIQUE: 2D digital imaging was performed. COMPARISON: XR FOOT RT COMPLETE from 03/26/2021 FINDINGS: BONES: No acute fracture is present. No bony destructive lesion is seen. JOINTS: No dislocation present. SOFT TISSUE: Normal. IMPRESSION: Unremarkable radiographs of the right foot. DATA REPOSITORY: RADIATION DOSE DELIVERED:
--- NOTE | 2021-03-26 15:03 | ED.GENADUL_ITS ---
Discharge Plan Disposition Patient Disposition: HOME Condition: Good Discharge Details Clinical Impression: Contusion of great toe Primary Care Provider: Tony Dao ED Provider: Becca Antunez Home Meds and New Rx's Prescriptions: Continued celecoxib 200 mg capsule 200 mg PO DAILY Qty: 60 RF: 1 vitamin B complex [B Complex-Vitamin B12] Tablet 1 tab PO DAILY Qty: 90 RF: 3 amitriptyline 50 mg tablet 50 mg PO QHS PRN (Reason: insomnia) Qty: 90 RF: 3 nitroglycerin 0.4 mg tablet, sublingual 0.4 mg sublingual Q5M PRN (Reason: chest pain) Qty: 30 RF: 0 albuterol sulfate [Ventolin HFA] 90 mcg/actuation HFA aerosol inhaler 2 puff inhalation Q6H PRN (Reason: shortness of breath or wheezing) Qty: 18 RF: 6 omeprazole 20 mg tablet,delayed release (DR/EC) 20 mg PO DAILY PRN (Reason: reflux of heartburn) Qty: 90 RF: 3 montelukast [Singulair] 10 mg tablet 10 mg PO DAILY PRN (Reason: runny nose) Qty: 20 RF: 0 acetaminophen 500 mg Tablet 1,000 mg PO PRN PRNRF: 0 Discharge Instructions Instructions: Foot Contusion (ED) Additional Instructions: Imaging is reassuring here today. No evidence of fracture. Please encourage rest, ice, elevation. Tylenol and/or ibuprofen as needed for discomfort. You may continue with the postop shoe to help with discomfort. You develop any new or worsening symptoms to seek care urgently once again. Otherwise grossly follow-up with primary care in 2 weeks for reevaluation. Referrals: Tony Dao DO [Primary Care Provider] - Discharge Data Discharge Date/Time-TO BE ENTERED AT DEPARTURE: 03/26/21 17:08 Medical Decision Making <Jamila Haynes - Last Filed: 03/27/21 17:12> 30 year old male presents to the ER with right foot crush injury via EMS. Patient reports a patio table fell on his foot and approximately 2:45 PM. He does have some contusion noted. Increased pain. Did not take any medications prior to arrival. No obvious deformity noted. Dorsal pedal pulses intact no active bleeding at this time. No other injuries or complaints at this time. XR ordered, ice, ibuprofen To be handed off to oncoming provider Becca Cortez pending x-ray. <CRISTIAN Rice - Last Filed: 03/26/21 17:00> Care transition myself from Danelle Klein NP. Please see her initial note regarding history, presentation and exam. In brief, the patient is a pleasant 30-year-old gentleman who dropped a table on his right great toe. Has ecchymosis and discomfort. Has applied some care, x-rays pending. FINDINGS: Bones/joints: Tiny Achilles calcaneal spur. Soft tissues: Normal. IMPRESSION: No acute findings With the patient. He is concerned about trying to get his foot into a shoe. We will put him on a postop shoe to help with pain. Encourage rest, ice, elevation. Work note given at patient request. Return precautions were discussed. Advise follow-up with primary care in the next 1 to 2 weeks for reevaluation. All questions or concerns were addressed and he is agreement this plan. HPI <Jamila Haynes - Last Filed: 03/27/21 17:12> General Mode of arrival: EMS . Date/Time Provider Initiated Documentation: 03/26/21 14:59 . Limitations to Documentation: no limitations . Information obtained by: patient and RN notes reviewed . HPI Narrative: 30 year old male presents to the ER with right foot crush injury via EMS. Patient reports a patio table fell on his foot and approximately 2:45 PM. He does have some contusion noted. Increased pain. Did not take any medications prior to arrival. No obvious deformity noted. Dorsal pedal pulses intact no active bleeding at this time. No other injuries or complaints at this time. Related Data Home Medications Medication Instructions Recorded Confirmed nitroglycerin 0.4 mg sublingual 0.4 mg SUBLINGUAL Q5M PRN #30 tab 08/29/20 03/20/21 tablet amitriptyline 50 mg tablet 50 mg PO QHS PRN #90 tab 10/18/20 03/26/21 albuterol sulfate 90 mcg/actuation 2 puff INHALATION Q6H PRN #18 gm 11/13/20 03/26/21 aerosol inhaler acetaminophen 1,000 mg PO PRN PRN 11/28/20 03/26/21 omeprazole 20 mg tablet,delayed 20 mg PO DAILY PRN #90 tab 12/09/20 03/26/21 release montelukast 10 mg tablet 10 mg PO DAILY PRN #20 tab 02/18/21 03/26/21 celecoxib 200 mg capsule 200 mg PO DAILY #60 cap 03/20/21 03/26/21 vitamin B complex 1 tab PO DAILY #90 tab 03/20/21 03/26/21 Previous Rx's Medication Instructions Recorded nitroglycerin 0.4 mg sublingual 0.4 mg SUBLINGUAL Q5M PRN #30 tab 08/29/20 tablet amitriptyline 50 mg tablet 50 mg PO QHS PRN #90 tab 10/18/20 albuterol sulfate 90 mcg/actuation 2 puff INHALATION Q6H PRN #18 gm 11/13/20 aerosol inhaler omeprazole 20 mg tablet,delayed 20 mg PO DAILY PRN #90 tab 12/09/20 release montelukast 10 mg tablet 10 mg PO DAILY PRN #20 tab 02/18/21 celecoxib 200 mg capsule 200 mg PO DAILY #60 cap 03/20/21 vitamin B complex 1 tab PO DAILY #90 tab 03/20/21 Allergies Allergy/AdvReac Type Severity Reaction Status Date / Time No Known Allergies Allergy Verified 03/26/21 14:50 General Stated Complaint: Orthopedic FAITH: 4 Review of Systems <Jamila Haynes - Last Filed: 03/27/21 17:12> All systems reviewed & are unremarkable except as noted in HPI and below Musculoskeletal Musculoskeletal: Reports arthralgias (Right great toe) PFSH <Jamila Haynes - Last Filed: 03/27/21 17:12> Medical History Arthritis of knee Asthma BRBPR (bright red blood per rectum) Depression Dyspepsia Elevated fasting glucose Esophagitis determined by endoscopy Essential hypertension Excessive sleepiness Family history of colon cancer Mother, age 53 Family history of pancreatic cancer Hepatic cyst Hiatal hernia with gastroesophageal reflux Insomnia Leg cramps, sleep related Leg length discrepancy Patellar tendonitis of both knees Scoliosis Surgical History History of colonoscopy (~09/13/20) History of esophagogastroduodenoscopy (EGD) (~09/13/20) Hx of esophagogastroduodenoscopy Spring 2019 No significant past surgical history Family History Maternal Grandmother Pancreatic cancer Diabetes Paternal Grandmother Diabetes Father Heart disease Hypertension Mother Colon cancer Social History Smoking/Tobacco Use Status: Former Tobacco Use Quit Date: 06/25/20 Tobacco: How many years used: 10 Second Hand Exposure: No Smoking risk assessment performed?: Yes Alcohol Intake: current Alcohol Intake frequency: holidays/special occasions o nly Drug use: Never Substance use type: does not use Adopted: Yes Caregiver/Support person: No Foster care: Yes Household members: significant other Housing: apartment Number of Children: 0 Communication Needs: None Education Level: high school Do you need help understanding health information?: Never current occupation: [employer] Pets and animals: Yes Pets and animals: cat(s) and bird(s) Sexually active: No Do you think of yourself as: Decline to Provide Current gender identity: male What is your relationship status?: living with partner How often do you get together with friends or relatives?: twice per week How often do you attend uatsdin or yazidism services?: decline to answer Do you belong to any clubs or organized social groups?: no Panel score (0-1 are the most socially isolated patients): 1 What type of physical activity do you participate in: walking and independent ambulation Frequency: 1-2 times per week Stefanie/Taoist: No preference Special stefanie needs: No Agree to transfusion: Yes Seatbelt use: sometimes Helmet use: No Drive intox or ride w/intox 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 Contusion, Swelling, tenderness noted. Course <Jamila Haynes - Last Filed: 03/27/21 17:12> Vital Signs Vital signs: Vital Signs Pulse 85 03/26/21 14:46 Respiratory Rate 18 03/26/21 14:46 Blood Pressure 136/94 H 03/26/21 14:46 Pulse Oximetry 99 03/26/21 14:46 Pulse 85 03/26/21 14:46 Respiratory Rate 18 03/26/21 14:46 Respiratory Effort Non-Labored 03/26/21 14:52 Blood Pressure 136/94 H 03/26/21 14:46 Blood Pressure Position Sitting 03/26/21 14:46 Pulse Oximetry 99 03/26/21 14:46 Oxygen Delivery Method Room Air 03/26/21 14:46 Oxygen Flow Rate 0 03/26/21 14:46 Pain Level 10 03/26/21 14:52 Sign Out <Jamila Haynes - Last Filed: 03/27/21 17:12> Sign Out Data: Sign Out Comment: Crush injury right foot. Great toe pain. Pending X-rays, R/O Fracture Last updated by Jamila Haynes at 03/26/21 16:05
[2021-03-26] MEDS: Ibuprofen 600 MG TAB PO (16:00)
--- NOTE | 2021-03-26 16:51 | DI.VRAD_ITS ---
PROCEDURE INFORMATION: Exam: XR Right Foot Exam date and time: 03/26/2021 3:03 PM Age: 30 years old Clinical indication: Injury or trauma; Fall; Sprain or strain; Foot; Right TECHNIQUE: Imaging protocol: XR Right foot. Views: 3 or more views. COMPARISON: No relevant prior studies available. FINDINGS: Bones/joints: Tiny Achilles calcaneal spur. Soft tissues: Normal. IMPRESSION: No acute findings Dictated and Authenticated by: Natali Terrazas MD. Ordering:JEFFREY Marino MD
== END 2021-03-26 17:08 | disposition home or self-care (01) ==
PROVIDERS: Emergency Provider Physician Assistant; PCP Family Medicine
DX: S97.111A Crushing injury of right great toe, initial encounter (principal); S90.111A Contusion of right great toe without damage to nail, initial encounter; W20.8XXA Other cause of strike by thrown, projected or falling object, initial encounter
CPT/HCPCS: 99283; 73630

== ENCOUNTER 2021-05-08 02:09 | Outpatient (CLI) | payer MEDICAID, SELFPAY ==
--- NOTE | 2021-05-08 07:00 | DI.RAD_ITS ---
Exam(s) XR KNEE RT 3V AP,LAT,KAPIL EXAM: XR KNEE RT 3V AP,LAT,KAPIL CLINICAL HISTORY: Arthritis vs mensical tear of the R knee,PAIN, M17.10 TECHNIQUE: COMPARISON: No exams were available for comparison FINDINGS: Three views were obtained. Cartilaginous joint spaces appear fairly well maintained. There may be s light knee joint effusion. No bony abnormality seen. IMPRESSION: RADIATION DOSE DELIVERED: Total DLP
== END 2021-05-08 02:29 ==
PROVIDERS: PCP Family Medicine; Visit Provider Family Medicine
DX: M25.561 Pain in right knee (principal)
CPT/HCPCS: 73562

== ENCOUNTER 2021-05-16 01:40 | Outpatient (CLI) | payer MEDICAID, SELFPAY ==
[2021-05-16 10:21] LABS: Source Nasal/Nares
[2021-05-16 12:57] LABS: COVID-19 PCR Negative (Negative)
== END 2021-05-16 01:41 | disposition home or self-care (01) ==
LOC: LBO 01:41
PROVIDERS: PCP Family Medicine; Visit Provider Otolaryngology
DX: Z20.822 Contact with and (suspected) exposure to COVID-19 (principal); Z01.818 Encounter for other preprocedural examination
CPT/HCPCS: 87635

== ENCOUNTER 2021-05-19 07:35 | Day surgery (SDC) | payer MEDICAID, SELFPAY ==
[2021-05-19] VITALS (7 sets, daily range): BP systolic 105–120; BP diastolic 68–78; PULSE 67–91; RESP 16–25; TEMP 36.3–36.8; O2SAT 93–98; BMI 31.1
[2021-05-19] MEDS: Lactated Ringers 1,000 ML 80 ML IV (08:10)
--- NOTE | 2021-05-19 08:20 | W.ANESPRE ---
General Info Date of Service Date Performed: 05/19/21 Height: 5 ft 9 in Weight: 95.8 kg Body Mass Index (BMI): 31.1 Surgical Procedure: Operation Date: 05/19/21 08:25 Proposed Procedures Side Surgeon p Inferior Turbinoplasty Bilateral Lenny Shen MD Meds Allergies and Home Medications Allergies Allergy/AdvReac Type Severity Reaction Status Date / Time No Known Allergies Allergy Verified 05/19/21 07:49 Home Medication Medication Instructions Recorded amitriptyline 50 mg tablet 50 mg PO QHS PRN #90 tab 10/18/20 albuterol sulfate 90 mcg/actuation 2 puff INHALATION Q6H PRN #18 gm 11/13/20 aerosol inhaler omeprazole 20 mg tablet,delayed 20 mg PO DAILY PRN #90 tab 12/09/20 release celecoxib 200 mg capsule 200 mg PO DAILY #60 cap 03/20/21 vitamin B complex 1 tab PO DAILY #90 tab 03/20/21 fluticasone propionate 50 2 spray INTRANASAL DAILY #16 g 04/02/21 mcg/actuation nasal spray,suspension diazepam 5 mg tablet 5 mg PO ONCE #1 tab 05/09/21 Current Visit Medications: Current Medications Generic Name Dose Route Start Last Admin Trade Name Freq PRN Reason Stop Dose Admin Dexamethasone 12 mg 05/19/21 06:00 Dexamethasone 10 Mg/Ml Vial IVP 05/19/21 16:00 PREOP JAMEY Ringer's Solution 1,000 mls @ 80 mls/hr 05/19/21 06:00 05/19/21 08:10 IV 06/15/21 23:59 80 mls/hr INFUSION JAMEY Administration Cefazolin Sodium/Dextrose 2 gm in 50 mls @ 100 mls/hr 05/19/21 06:00 Ancef Duplex IVPB 05/19/21 16:00 PREOP JAMEY Tranexamic Acid 1,000 mg/ 60 mls @ 360 mls/hr 05/19/21 06:00 Sodium Chloride IVPB 05/19/21 16:00 PREOP JAMEY IV Miscellaneous Supplies 1 each 05/19/21 06:00 Iv Access IV 06/15/21 23:59 DIRECTED JAMEY Sodium Chloride 0 ml 05/19/21 06:00 Normal Saline Flush 10 Ml Syr IV 06/15/21 23:59 PRN PRN Sodium Chloride 0 ml 05/19/21 06:00 Normal Saline 10 Ml Vial IJ 06/15/21 23:59 DIRECTED PRN Sterile Water 0 ml 05/19/21 06:00 Water,Injection,Sterile 10 Ml Vial IJ 06/15/21 23:59 DIRECTED PRN PFSH Active Problems Active Problems: Problem Status Onset Code Chronic nasal congestion R09.81 Deviated nasal septum J34.2 Hypertrophy of both inferior nasal turbinates J34.3 Chronic rhinitis J31.0 Contusion of great toe S90.119A Patellar tendonitis of both knees M76.51, M76.52 Leg cramps, sleep related G47.62 Arthritis of knee M17.10 BMI 32.0-32.9,adult 11/06/20 Z68.32 DELMIS on CPAP 01/01/21 G47.33, Z99.89 Bronchitis J40 Post-immunization reaction T88.1XXA Pneumonia J18.9 COVID-19 U07.1 Transaminitis R74.01 Liver cyst K76.89 Right-sided chest pain R07.9 Excessive sleepiness G47.10 Esophagitis determined by endoscopy K20.90 Epigastric pain R10.13 Hepatic cyst K76.89 BRBPR (bright red blood per rectum) K62.5 Leg length discrepancy M21.70 Essential hypertension I10 Scoliosis M41.9 Family history of pancreatic cancer Z80.0 Family history of colon cancer Z80.0 Elevated fasting glucose R73.01 Hiatal hernia with gastroesophageal reflux K21.9, K44.9 Insomnia G47.00 Depression F32.9 Asthma J45.909 Medical History Medical History Arthritis of knee Asthma BRBPR (bright red blood per rectum) Depression Dyspepsia Elevated fasting glucose Esophagitis determined by endoscopy Essential hypertension Excessive sleepiness Family history of colon cancer Mother, age 53 Family history of pancreatic cancer Hepatic cyst Hiatal hernia with gastroesophageal reflux Insomnia Leg cramps, sleep related Leg length discrepancy Patellar tendonitis of both knees Scoliosis Surgical History Surgical History History of colonoscopy (~09/13/20) History of esophagogastroduodenoscopy (EGD) (~09/13/20) Hx of esophagogastroduodenoscopy Spring 2019 No significant past surgical history Tobacco Smoking/Tobacco Use Status: Former Tobacco Use Tobacco: How many years used: 10 Passive smoking exposure: No Second hand exposure: No Alcohol Alcohol Intake: current Alcohol intake frequency: holidays/special occasions only Substance Use Substance use: Never Substance use type: does not use Details: pt. reports no alcohol use Vital Signs and Lab Results Vital Signs Most Recent Vital Signs in EMR: Most Recent Vital Signs Temp Pulse Resp BP Pulse Ox 36.8 C 67 18 120/75 97 05/19/21 07:58 05/19/21 07:58 05/19/21 07:58 05/19/21 07:58 05/19/21 07:58 Lab Results Blood Type / Crossmatch: No Data to Display Complete Blood Count: No Data to Display Complete Metabolic Panel: No Data to Display Liver Function Panel: No Data to Display Coagulation Panel: No Data to Display Cardiac Panel: No Data to Display Arterial Blood Gas: No Data to Display Venous Blood Gas: No Data to Display Pancreas Panel: No Data to Display Thyroid Panel: No Data to Display Infectious Disease: Coronavirus (COVID-19)(PCR) Negative (Negative) 05/16/21 08:50 05/16/21 Coronavirus 2019 Source Nasal/Nares 05/16/21 08:50 05/16/21 Blood Cultures: No Data to Display Toxicology Panel: No Data to Display Anesthesia Assessment and Plan Anesthesia History Personal History: No History of Anesthesia Complications Family History: No Family History of Anesthesia Complications Exercise Tolerance Exercise Tolerance: Metabolic Equivalents>4 Pertinent Negatives Pertinent Negatives: No Symptoms of GERD, No Major Cardiovascular Symptoms or Complaints, No Major Pulmonary Symptoms or Complaints and No History of CVA/TIA Cardiac & Pulmonary Exam Cardiac Exam: Normal S1/S2 Heart Sounds Pulmonary Exam: Clear Bilateral Breath Sounds Airway Exam Known Difficult Airway: No Mallampati Class: 2 Mouth Opening: Normal (> 3cm) Thyromental Distance: Greater than 3 cm Neck Range of Motion: Full ROM Neck Circumference: Normal Teeth Condition: Normal Dentition ASA Classification ASA Score: ASA 2 Emergency Case?: No NPO Status NPO Status: NPO Clears >2 hours, Solids >8 hours Anesthesia Plan Resuscitation Status: Full Code Anesthesia Technique: General Anesthesia Airway Planned: Endotracheal Tube Monitors Used: Standard Monitors
[2021-05-19] MEDS: ceFAZolin 2 GM/50 ML BAG IVPB (08:31)
[2021-05-19] MEDS: Cocaine Nasal 4% 4 ML BTL (08:52)
[2021-05-19] MEDS: Bacitracin 30 GM TUBE (08:55)
--- NOTE | 2021-05-19 09:16 | PDOC.DSDIS_ITS ---
Discharge Plan Disposition Patient Disposition: HOME Condition: Good Discharge Details Reason For Visit: Bilateral inferior turbinoplasty Attending Provider: Lenny Shen Primary Care Provider: Tony Dao Home Meds and New Rx's Prescriptions: No Action fluticasone propionate [Flonase Allergy Relief] 50 mcg/actuation spray,suspension 2 spray intranasal DAILY Qty: 16 RF: 12 celecoxib 200 mg capsule 200 mg PO DAILY Qty: 60 RF: 1 vitamin B complex [B Complex-Vitamin B12] Tablet 1 tab PO DAILY Qty: 90 RF: 3 amitriptyline 50 mg tablet 50 mg PO QHS PRN (Reason: insomnia) Qty: 90 RF: 3 albuterol sulfate [Ventolin HFA] 90 mcg/actuation HFA aerosol inhaler 2 puff inhalation Q6H PRN (Reason: shortness of breath or wheezing) Qty: 18 RF: 6 omeprazole 20 mg tablet,delayed release (DR/EC) 20 mg PO DAILY PRN (Reason: reflux of heartburn) Qty: 90 RF: 3 diazepam [Valium] 5 mg tablet 5 mg PO ONCE Qty: 1 RF: 0 Discharge Instructions Additional Instructions: May resume CPAP as soon as comfortable. Septoplasty instructions cover inferior turbinoplasty. He does not have any splint material. There are no stitches Stand Alone Forms: ENT-Septo InstrAris Shen Referrals: Lenny Shen MD [ [facility] STAFF PHYSICIAN] - (2 weeks, please call the office for the appointment prior to the patient's departure) Discharge Orders Discharge Orders: Discharge Order (Routine); Ordered 05/19/21 Ordered By: Lenny Shen
--- NOTE | 2021-05-19 09:19 | ROE_ITS ---
Operative Note Operative Note DATE OF PROCEDURE: 05/19/21 PRE-OP DIAGNOSIS: Chronic nasal obstruction, bilateral inferior turbinate hypertrophy PROCEDURE: Bilateral excisional inferior turbinoplasty SURGEON: Lenny Shen ANESTHESIA TYPE: General LMA/ETT Refer to Anesthesia Record ESTIMATED BLOOD LOSS: 20 PATHOLOGY: none sent COMPLICATIONS: None Patient was transported to: PACU Patient's condition: stable Indications: Patient with the above problems. This is failed maximal medical therapy. Options were explained to the patient regarding further management. He elected to undergo the above procedure. Consent was filled out and signed. Findings: Minimally deviated nasal septum, bilateral hypertrophic inferior turbinates, no intranasal masses or lesions. Adenoids atrophic Procedure Description: After obtaining an adequate level of general endotracheal anesthesia the patient was positioned in the supine position and prepped and draped in appropriate fashion. 1% lidocaine with 1/100,000 epinephrine was injected into the inferior turbinates bilaterally and then cocaine soaked pledgets were placed along the inferior turbinates and left for 5 minutes. Each inferior turbinate was inspected, and infractured using a [place] elevator. Turbinate scissors were used to remove the inferior one third of the turbinate, taking care to avoid trauma to the area of the lacrimal duct. Following this, electrocautery suction tip catheter set on 15 W coagulation was used to further reduce the mucosal on the medial inferior aspect of the inferior turbinates and to achieve relative hemostasis. A [place] elevator was then used to outfracture the residual turbinate, and with this, the [place] elevator could be passed freely from the anterior nares and posterior pharynx without restriction. The nasal valve was inspected revealing no narrowing of the nasal valve. There was no evidence of septal hematoma. Merocel packs were placed along the inferior turbinates and insufflated. The patient was then awakened and extubated by anesthesia and the Merocel packs were removed without significant bleeding. I was present throughout the entire case.
[2021-05-19] MEDS: fentaNYL 100 MCG/2 ML VIAL IVP ×2 (09:21→09:26)
--- NOTE | 2021-05-19 09:50 | W.ANESPOSTOP ---
Postoperative Evaluation Date, Time and Location Date Performed: 05/19/21 Time Performed: 09:45 Patient Location: PACU Vital Signs Most Recent Imported Vital Signs: Most Recent Vital Signs Temp Pulse Resp BP Pulse Ox 36.4 C L 82 21 117/76 95 05/19/21 09:40 05/19/21 09:40 05/19/21 09:40 05/19/21 09:40 05/19/21 09:40 Pain Score Most Recent Pain Score: Most Recent Pain Score Pain Level 2 05/19/21 09:40 Assessment Mental Status: Awake (Alert & Oriented to Patient Baseline) Airway and Respiratory Function: Patent airway with normal (patient baseline) respiratory exam Cardiovascular Function: Hemodynamically Stable Hydration Status: Adequately Hydrated Nausea & Vomiting: No Nausea or Vomiting Pain: Pain is tolerable per patient Peripheral Nerve Block: Patient did not receive a nerve block
== END 2021-05-19 11:50 | disposition home or self-care (01) ==
PROVIDERS: PCP Family Medicine; Visit Provider Otolaryngology
PROC: (CPT 30930; principal; 2021-05-19 08:15)
DX: J34.3 Hypertrophy of nasal turbinates (principal); J45.909 Unspecified asthma, uncomplicated; I10 Essential (primary) hypertension
CPT/HCPCS: 30130; J0131; J0690; J1100; J2001; J2405; J3010

== ENCOUNTER 2021-05-27 01:50 | Outpatient (CLI) | payer MEDICAID, SELFPAY ==
--- NOTE | 2021-05-27 07:00 | DI.MRI_ITS ---
Exam(s) MR LOWER JOINT RT WO EXAM: MR LOWER JOINT RT WO CLINICAL HISTORY: Likely R meniscal tear vs chondromalacia,arthritis of knee, m17.10, pain TECHNIQUE: Multiplanar multisequence MRI was performed.. COMPARISON: No exams were available for comparison FINDINGS: MR examination of the knee was performed according to the usual protocol. There is no significant knee joint effusion. No significant bony signal abnormality seen. Medial tibiofemoral joint: The articular cartilage of the femur and tibia appears well maintained. T he meniscus and attachments appear intact. The medial collateral ligament appears intact. 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 Lateral tibiofemoral joint: The articular cartilage of the femur and tibia appears well maintained. The meniscus and attachments appear intact. The lateral collateral ligament complex and posterolater al corner structures appear intact. Patellofemoral joint and extensor mechanism: The articular cartilage of the patellofemoral joint appe ars intact. The superior and inferior patellar fat pads appear normal with no signal abnormality. The quadriceps tendon and patellar tendon appear intact with no evidence of a tear or significant darrell ma. The medial and lateral retinacula appear intact. Cruciate ligaments: Cruciate ligaments and attachments appear normal with no evidence of a tear. Tibiofibular joint: No specific abnormality involving the tibiofibular joint. IMPRESSION: Negative knee MRI. DATA REPOSITORY:
== END 2021-05-27 02:10 ==
PROVIDERS: PCP Family Medicine; Visit Provider Family Medicine
DX: M17.11 Unilateral primary osteoarthritis, right knee (principal)
CPT/HCPCS: 73721

== ENCOUNTER 2021-06-17 03:35 | Outpatient (CLI) | payer MEDICAID, SELFPAY ==
[2021-06-17 08:27] LABS: Abs Immature Grans 0.02 10^3/uL (0.0-0.06); Absolute Basophil Count 0.06 10^3/uL (0.0-0.2); Absolute Eosinophil Count 0.33 10^3/uL (0.0-0.7); Absolute Lymphocyte Count 2.14 10^3/uL (1.2-3.4); Absolute Monocyte Count 0.39 10^3/uL (0.1-0.8); Absolute Neutrophil Count 4.36 10^3/uL (1.2-6.7); Basophils % 0.8; Eosinophils % 4.5; HGB 16.5 g/dL (13.5-17.5); Immature Grans % 0.3; Lymphocytes % 29.3; MCH 29.3 pg (27.0-33.0); MCHC 34.4 % (32.0-36.0); MCV 85.1 fL (80-95); MPV 10.1 fL (8.0-11.0); Monocytes % 5.3; Neutrophils % 59.8; Nucleated RBC 0 %; Platelet Count 299 10^3/uL (130-400); RBC 5.64 10^6/uL (4.36-5.78); RDW 12.7 % (11.8-14.1); RDW-SD 38.4 fL
[2021-06-17 08:38] LABS: Prothrombin Time 10.5 sec (9.3-11.0)
[2021-06-17 10:08] LABS: ALT 62 U/L (16-63); AST 23 U/L (15-37); Alkaline Phosphatase 75 U/L (46-116); Anion Gap 7.5 mmol/L (3-11); BUN 12 mg/dL (7-18); Bilirubin, Total 0.6 mg/dL (0.2-1.0); CO2 29.5 mmol/L (21.0-32.0); CREATININE 1.1 mg/dL (0.70-1.30); Calcium 8.9 mg/dL (8.5-10.1); Calculated LDL 73 mg/dL (<100); Chloride 105 mmol/L (98-107); Cholesterol 162 mg/dL (<200); Glucose 113 mg/dL (74-106); HDL Cholesterol 30 mg/dL (40-60); Potassium 3.9 mmol/L (3.5-5.1); Sodium 142 mmol/L (136-145); Total Protein 7.1 g/dL (6.4-8.2); Triglyceride 298 mg/dL (<150)
[2021-06-18 10:51] LABS: HIV-1/2 Ag & Ab Screen Negative (Negative)
== END 2021-06-17 03:36 | disposition home or self-care (01) ==
LOC: LBO 03:35
PROVIDERS: PCP Family Medicine; Visit Provider Internal Medicine
DX: K75.81 Nonalcoholic steatohepatitis (NASH) (principal); Z11.4 Encounter for screening for human immunodeficiency virus [HIV]
CPT/HCPCS: 36415; 80053; 80061; 87389; 85025; 85610

== ENCOUNTER 2021-07-08 20:22 | Emergency (ER) | payer MEDICAID, SELFPAY ==
[2021-07-08 20:25] VITALS: BP 163/81; PULSE 82; RESP 18; TEMP 36.7; O2SAT 98
--- NOTE | 2021-07-08 20:58 | ED.GENADUL_ITS ---
Discharge Plan Disposition Patient Disposition: HOME Condition: Stable Discharge Details Clinical Impression: Pain, dental Primary Care Provider: Tony Dao ED Provider: Christy Forde Home Meds and New Rx's Prescriptions: New penicillin V potassium 500 mg tablet 500 mg PO QID 7 Days Qty: 28 RF: 0 Continued amitriptyline 50 mg tablet 25 mg PO QHS PRN (Reason: insomnia) Qty: 90 RF: 3 albuterol sulfate [Ventolin HFA] 90 mcg/actuation HFA aerosol inhaler 2 puff inhalation Q6H PRN (Reason: shortness of breath or wheezing) Qty: 18 RF: 6 omeprazole 20 mg tablet,delayed release (DR/EC) 20 mg PO DAILY PRN (Reason: reflux of heartburn) Qty: 90 RF: 3 Discharge Instructions Instructions: Toothache (ED) Additional Instructions: Your symptoms today may be the result of a dental infection. A prescription for antibiotics has been sent electronically to your pharmacy. Take this as directed until finished. Continue using Orajel and salt water gargles. Alternate tylenol and motrin as needed and directed for pain. Call your dentist office tomorrow to schedule a follow-up appointment for reevaluation. Return immediately to the emergency department if you develop any worsening or new concerning symptoms such as fever, worsening pain, facial swelling or difficulty swallowing. Discharge Data Discharge Date/Time-TO BE ENTERED AT DEPARTURE: 07/08/21 21:17 Discharge Physician: Christy Forde Medical Decision Making 31 yo M w/ Right upper toothache x 1 week. Denies fever. Tender to palpation teeth # 1 through 3. Minimal mucosal edema and erythema but no abscess. Pt appears nontoxic. No facial or neck swelling. Will cover with penicillin. He was given 1 dose of penicillin here, a bottle to go and a prescription was sent electronically to his pharmacy. Advised to call his dentist tomorrow for follow up. Usual and customary return precautions given prior to discharge. HPI General Mode of arrival: ambulatory . Date/Time Provider Initiated Documentation: 07/08/21 20:32 . Limitations to Documentation: no limitations . Information obtained by: patient . HPI Narrative: Pt is a 31yo M who presents with right upper toothache x 1 week. Patient states she has had intermittent pain in this area over the past 2 months but eventually resolved. States he is unsure the pain is in one tooth or more that one tooth. He denies any known injury to his teeth. He denies fever. He has been taking Tylenol and Motrin for pain as needed. Related Data Home Medications Medication Instructions Recorded Confirmed albuterol sulfate 90 mcg/actuation 2 puff INHALATION Q6H PRN #18 gm 11/13/20 07/08/21 aerosol inhaler omeprazole 20 mg tablet,delayed 20 mg PO DAILY PRN #90 tab 12/09/20 07/08/21 release amitriptyline 50 mg tablet 25 mg PO QHS PRN #90 tab 07/01/21 07/08/21 penicillin V potassium 500 mg PO QID 7 Days #28 tab 07/08/21 Previous Rx's Medication Instructions Recorded albuterol sulfate 90 mcg/actuation 2 puff INHALATION Q6H PRN #18 gm 11/13/20 aerosol inhaler omeprazole 20 mg tablet,delayed 20 mg PO DAILY PRN #90 tab 12/09/20 release amitriptyline 50 mg tablet 25 mg PO QHS PRN #90 tab 07/01/21 penicillin V potassium 500 mg PO QID 7 Days #28 tab 07/08/21 Allergies Allergy/AdvReac Type Severity Reaction Status Date / Time No Known Allergies Allergy Verified 07/08/21 20:30 General Stated Complaint: DentalOral FAITH: 4 Review of Systems All systems reviewed & are unremarkable except as noted in HPI and below Constitutional Constitutional: Reports as per HPI, Denies chills and Denies fever(s) Eyes Eyes: Denies blurry vision ENT Ears, Nose, Mouth, and Throat: Reports dental pain, Denies dizziness, Denies sore throat and Denies throat swelling Cardiovascular Cardiovascular: Denies chest pain and Denies dyspnea Respiratory Respiratory: Denies cough and Denies dyspnea Gastrointestinal Gastrointestinal: Denies abdominal pain, Denies diarrhea and Denies vomiting Genitourinary Genitourinary: Denies hematuria and Denies dysuria Musculoskeletal Musculoskeletal: Denies back pain and Denies numbness Integumentary/Breasts Skin/Breast: Denies lesions and Denies rash Neurologic Neurologic: Denies dizziness, Denies localized weakness and Denies numbness Allergic/Immunologic Allergic/Immunologic: Denies throat swelling PFSH All Active Problems (Updated 07/08/21 @ 21:01 by Christy J Bugbee, DO) Pain, dental (Acute) Rebound headache (Acute) Tendinitis of right quadriceps tendon (Acute) Sore throat (Acute) Nasal congestion (Acute) Chronic nasal congestion (Acute) Deviated nasal septum (Acute) Hypertrophy of both inferior nasal turbinates (Acute) Chronic rhinitis (Acute) Contusion of great toe (Acute) Leg cramps, sleep related (Acute) Arthritis of knee (Acute) BMI 32.0-32.9,adult (Acute 11/06/20) DELMIS on CPAP (Chronic 01/01/21) Bronchitis (Acute) Post-immunization reaction (Acute) Pneumonia (Acute) COVID-19 (Acute) Transaminitis (Acute) Liver cyst (Acute) Right-sided chest pain (Acute) Excessive sleepiness (Acute) Esophagitis determined by endoscopy (Acute) Epigastric pain (Acute) Hepatic cyst (Acute) BRBPR (bright red blood per rectum) (Acute) Leg length discrepancy (Acute) Essential hypertension (Acute) Scoliosis (Acute) Family history of pancreatic cancer (Acute) Family history of colon cancer (Chronic) Elevated fasting glucose (Acute) Hiatal hernia with gastroesophageal reflux (Acute) Insomnia (Acute) Depression (Chronic) Asthma (Chronic) Medical History (Updated 07/08/21 @ 21:01 by Christy Forde DO) Dyspepsia Surgical History History of colonoscopy (~09/13/20) History of esophagogastroduodenoscopy (EGD) (~09/13/20) Hx of esophagogastroduodenoscopy Spring 2019 No significant past surgical history S/P nasal surgery Bilateral excisional inferior turbinoplasty (05/19/2021) Family History Maternal Grandmother Pancreatic cancer Diabetes Paternal Grandmother Diabetes Father Heart disease Hypertension Mother Colon cancer Social History Smoking/Tobacco Use Status: Former Tobacco Use Quit Date: 06/25/20 Tobacco: How many years used: 10 Second Hand Exposure: No Smoking risk assessment performed?: Yes Alcohol Intake: current Alcohol Intake frequency: holidays/special occasions only Drug use: Never Substance use type: does not use Details: pt. reports no alcohol use Adopted: Yes Caregiver/Support person: No Foster care: Yes Household members: significant other Housing: apartment Number of Children: 0 Communication Needs: None Education Level: high school Do you need help understanding health information?: Never current occupation: [employer] Pets and animals: Yes Pets and animals: cat(s) and bird(s) Sexually active: No Do you think of yourself as: Decline to Provide Current gender identity: male What is your relationship status?: living with partner How often do you get together with friends or relatives?: twice per week How often do you attend anabaptism or mormon services?: decline to answer Do you belong to any clubs or organized social groups?: no Panel score (0-1 are the most socially isolated patients): 1 What type of physical activity do you participate in: walking and independent ambulation Frequency: 1-2 times per week Stefanie/Taoism: No preference Special stefanie needs: No Agree to transfusion: Yes Seatbelt use: sometimes Helmet use: No Drive intox or ride w/intox patient transportation driver: No Working smoke detector in home: Yes Fire extinguisher in home: Yes Carbon monox detector in home: Yes Firearms in home: No Do you feel safe at home: Yes Do you feel safe in your relationship?: Yes Exam Const General: cooperative, healthy appearing and no acute distress HENMT Head: normal to inspection Ears: hearing grossly normal bilaterally, external ears normal and TM's normal bilaterally General nose exam: external nose normal Face and sinus: normal facial exam Mouth: oral mucosae normal, no drooling and no trismus Teeth image: 1. Tender to palpation. Minimal mucosal edema and erythema but no abscess. Throat: posterior oropharynx normal Eyes General: appearance normal, both eyes and all related structures Neck Neck: normal visual inspection, no lymphadenopathy, no meningeal signs, trachea midline, supple, no anterior neck swelling and No submandibular swelling Resp Effort & Inspection: normal respiratory effort and able to speak in complete sentences Cardio Rate: regular rate Skin General skin exam: no rashes or lesions noted Neuro General: patient alert, patient awake and patient oriented x3 Motor: muscle tone normal throughout Extrem General: normal to inspection and full ROM Psych Appearance: grossly normal Affect: normal affect Course Vital Signs Vital signs: Vital Signs Temperature 98.1 F 07/08/21 20:25 Pulse 82 07/08/21 20:25 Respiratory Rate 18 07/08/21 20:25 Blood Pressure 163/81 H 07/08/21 20:25 Pulse Oximetry 98 07/08/21 20:25 Temperature 98.1 F 07/08/21 20:25 Temperature Source Temporal Artery Scan 07/08/21 20:25 Pulse 82 07/08/21 20:25 Respiratory Rate 18 07/08/21 20:25 Respiratory Effort 07/08/21 20:35 Blood Pressure 163/81 H 07/08/21 20:25 Pulse Oximetry 98 07/08/21 20:25 Pain Level 10 07/08/21 20:25
[2021-07-08] MEDS: Penicillin V POTASSIUM 500 MG TAB PO (21:08)
== END 2021-07-08 21:17 | disposition home or self-care (01) ==
PROVIDERS: Emergency Provider Physician Assistant; PCP Family Medicine
DX: K08.89 Other specified disorders of teeth and supporting structures (principal)
CPT/HCPCS: 99283

== ENCOUNTER 2021-08-07 04:16 | Outpatient (CLI) | payer MEDICAID, SELFPAY ==
[2021-08-07 12:26] LABS: TSH 3.04 uIU/mL (0.36-3.74)
== END 2021-08-07 04:17 | disposition home or self-care (01) ==
LOC: LBO 04:16
PROVIDERS: PCP Family Medicine; Visit Provider Internal Medicine
DX: K75.81 Nonalcoholic steatohepatitis (NASH) (principal)
CPT/HCPCS: 36415; 84443

== ENCOUNTER 2021-10-06 00:49 | Outpatient (CLI) | payer MEDICAID, SELFPAY ==
--- OUTSIDE RECORDS SUMMARY | 2021-10-06 00:50 | XMS_ITS ---
:1990 Author Organization [facility] Address [address], [place] [address] Care Team Providers Name Role Phone Coco Yoon Unavailable Unavailable PROBLEMS Type Condition ICD9-CM Code [id number] Code Onset Condition SNO MED Code Dates Status Problem Duodenitis K29.80 Active 47705117 determined by biopsy ALLERGIES No Known Allergies ENCOUNTERS Encounter Location Date Diagnosis [address] Aug, Encounter f or other Healthcare Occupational Road [place], [place] admi [facility] Department [id number] examinations Z 02. Gastroenterology [address] [place] [address] Feb, Duodenitis de termined by Road Suite biopsy K29.80 [place], [place] [id number] Gastroenterology [address] [place] [address] Feb, Road [address] [id number] Gastroenterology [address] [place] [address] Feb, Road [address] [id number] [address] Feb, Bilious vom iting with Healthcare Op Road [place], [place] nausea R11.1 4 [id number] Gastroenterology [address] [place] [address] Feb, Road [address] [place] [address] [id number] [address]astro[address] [place] [address] Jan, Encounter for screening Road [place] [address] for other viral diseases [place], [place] Z11.59 [id number] Gastroenterology [address] [place] [address] Jan, Road [address] [id number] Gastroenterology [address] [place] [address] Dec, [address] pre-operative ex amination [place], [place] Z01.818 [id number] Gastroenterology [address] [place] [address] Dec, Road [address] [place] [address] [id number] Gastroenterology [facility] 18 Dec, [address] [place], [place] [id number] Gastroenterology [facility] Dec, Bilious vomit ing with Road [address] nausea R11.14 an d Family [place], [place] history of colon cancer [id number] in mother Z80.0 Gastroenterology [facility] Dec, Road [address] [place] [address] [id number] Gastroenterology [facility] 11 Dec, [address] [place] [address] [id number] Gastroenter[facility] Dec, [address] [place] [address] [id number] Gastroenterology [facility] November, [address] [place] [address] [id number] Gastroenterology [facility] Oct, [address] [place] [address] [id number] Gastroenterology [facility] Oct, Road [address] [place] [address] [id number] Gastroenterology [facility] Oct, Road [address] [place] [address] [id number] Gastroenterology [facility] Oct, Bilious vomit ing with Road [address] nausea R11.14 ; Left [place], [place] upper quadrant p ain [id number] R10.12 and Famil y history of colon cancer in mother Z80.0 [facility] Oct, Road [address] [place] [address] [id number] IMMUNIZATIONS No Known Immunizations SOCIAL HISTORY Never Assessed REASON FOR REFERRAL FUNCTIONAL STATUS PLAN OF CARE Activity Details Future Test CELIAC DISEASE COMPREHENSIVE (559079) [id number] VITAL SIGNS Height 68 in 2019-11-20 Weight 200 lbs 2019-11-20 BMI 30.41 kg/m2 2019-11-20 MEDICATIONS Medication Instructions Dosage Frequency Start End Duration Statu s Date Date Albuterol Inhalation every 1 puff as 4h Act rashel Sulfate HFA 108 4 hrs needed (90 Base) MCG/ACT Esomeprazole Orally Once 1 capsule Activ e Magnesium 40 MG daily 30 minutes prior to supper FLUoxetine HCl Orally Once a 1 capsule 24h A ctive 20 MG day Montelukast Orally Once a 1 tablet 24h Activ e Sodium 10 MG day budesonide 180 Inhalation Twice 1 puff 12h Active MCG/ACT a day Magnesium 40 mg Orally Once a 1 tablet 24h A ctive day with a meal PROCEDURES Procedure Date Ordered Result Body Site OCD Urine Drug Screen (collection only) Sep 17, 2021 EGD BIOPSY SINGLE/MULTIPLE Feb 27, 2020 RESULTS Name Result Date Reference Range OCD URINE COLLECTION 2021-09-17 COVID 19 [facility] (PRE-OP AND OB), PCR 2020-01-28 REASON FOR VISIT occ udc, OCC udc , schedule appt/ results 3RD CALL, F/U possible Celiac, biopsy results, Headaches, GI-EGD, procedure tomorrow, COVID LAB, GI-EGD, Covid Test, schedule EGD, we missed keisha med appt., GI - f/u call [phone], Telemedicine visit. Patient gives consent for telephone visit. 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 Problem is not related tocoronavirus. Patient gave verbal consent for telephone visit. Physician in office, patient in home. Duration of physician telephone time 13 minutes., GI gagging with occasional vomiting pt working on getting insurance wcb to r/s Insurance Providers [facility] Member Patient Patient Patient Patient Patient Subscriber Subscriber Subscriber Group Insurance Plan Plan Plan Plan ID Relationship Address Phone Name Date of ID Name Date of No Type Insurance Insurance Insurance Coverage to Subscriber Address Phone Name Dates [place] [phone] [place] self Vega 1990 [id number] [place] [address] [place] [id number] OCD - [address] OCD - self Vega [id number] ESCREEN [id number] [facility] [id number]
--- NOTE | 2021-10-06 06:45 | DI.US_ITS ---
Exam(s) US SCROTUM EXAM: US SCROTUM CLINICAL HISTORY: B/L enlarged testicles,n50.89. TECHNIQUE: Scrotal ultrasound performed using grayscale, color-flow and spectral Doppler analysis. COMPARISON: No exams were available for comparison FINDINGS: Right testicle: 5.2 x 2.4 x 3.2 cm Left testicle: 4.9 x 2.7 x 3 cm Echogenicity: Normal. Contour: Smooth. Mass: None seen. Microlithiasis: None. Hydrocele: Small bilateral. Right 1.3 x 1.0 x 2.8 cm. Left 0.9 x 0.7 x 1.3 cm. Variocele: None. Hernia: No peristalsing bowel loop identified. Epididymis: Normal. DOPPLER: Color: Symmetric and uniform, no hyperemia. Duplex: Bilateral testicular arterial waveforms visualized. IMPRESSION: Normal appearing bilateral testicles. Small bilateral hydroceles. DATA REPOSITORY:
== END 2021-10-06 01:09 ==
PROVIDERS: PCP Family Medicine; Visit Provider Family Medicine
DX: N50.89 Other specified disorders of the male genital organs (principal); N43.2 Other hydrocele
CPT/HCPCS: 76870

== ENCOUNTER 2021-10-06 02:29 | Outpatient (CLI) | payer MEDICAID, SELFPAY ==
--- OUTSIDE RECORDS SUMMARY | 2021-10-06 02:30 | XMS_ITS ---
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 Gastroenterology [address] [place] [address] Feb, Duodenitis de termined by Road Suite biopsy K29.80 [place], [place] [id number] Gastroenterology [address] [place] [address] Feb, Road [address] [id number] Gastroenterology [address] [place] [address] Feb, Road [address] [id number] [address] Feb, Bilious vom iting with Healthcare Op Road [place], [place] nausea R11.1 4 [id number] Gastroenterology [address] [place] [address] Feb, Road [address] [place] [address] [id number] Gastroenterology [address] [place] [address] Jan, Encounter for screening Road [place] [address] for other viral diseases [place], [place] Z11.59 [id number] Gastroenterology [address] [place] [address] Jan, Road [address] [id number] Gastroenterology [address] [place] [address] Dec, [address] pre-operative ex amination [place], [place] Z01.818 [id number] Gastroenterology [address] [place] [address] Dec, Road [address] [place] [address] [id number] Gastroenterology [facility] 18 Dec, [address] [place], [place] [id number] Gastroenterology [facility] Dec, Bilious vomit ing with Road [address] nausea R11.14 an d Family [place], [place] history of colon cancer [id number] in mother Z80.0 Gastroenterology [facility] Dec, Road [address] [place] [address] [id number] Gastroenterology [facility] 11 Dec, [address] [place] [address] [id number] Gastroenterology [address] [facility] Dec, Road [address] [place] [address] [id number] Gastroenterology [address] [facility] November, Road [address] [place] [address] [id number] Gastroenterology [facility] Oct, [address] [place] [address] [id number] Gastroenterology [facility] Oct, Road [address] [place] [address] [id number] Gastroenterology [address] [facility] Oct, Road [address] [place] [address] [id number] Gastroenterology [facility] Oct, Bilious vomit ing with Road [address] nausea R11.14 ; Left [place], [place] upper quadrant p ain [id number] R10.12 and Famil y history of colon cancer in mother Z80.0 [facility] [address] [facility] Oct, Road [address] [place] [address] [id number] IMMUNIZATIONS No Known Immunizations SOCIAL HISTORY Never Assessed REASON FOR REFERRAL FUNCTIONAL STATUS PLAN OF CARE Activity Details Future Test CELIAC DISEASE COMPREHENSIVE (495565) [id number] VITAL SIGNS Height 68 in 2019-11-20 Weight [...] keisha med appt., GI - f/u call [phone], Telemedicine visit. Patient gives consent for telephone visit. 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 Problem is not related tocoronavirus. Patient gave verbal consent for telephone visit. Physician in office, patient in home. Duration of physician telephone time 13 minutes., GI gagging with occasional vomiting pt working on getting insurance wcb to r/s Insurance Providers [facility] Health Member Patient Patient Patient Patient Patient Subscriber Subscriber Subscriber Group Insurance Plan Plan Plan Plan ID Relationship Address Phone Name Date of ID Name Date of No Type Insurance Insurance Insurance Coverage to Subscriber Address Phone Name Dates OCD - [address] OCD - self V[place] 1990 [id number] ESCREEN [id number] ESCREEN [place] [facility] [address] [place] [phone] [place] self [place] 1990 45 [id number] [place] [address] [place] [id number]
[2021-10-06 10:27] LABS: Hemoglobin A1C 5.4 % (<5.7)
[2021-10-06 10:32] LABS: ESR < 1 mm/hr (0-15)
[2021-10-06 11:28] LABS: Ferritin 172 ng/mL (26-388); Vitamin B12 258 pg/mL (193-986)
[2021-10-06 11:41] LABS: C-Reactive Protein 0.09 mg/dL (0.0-0.3); Creatine Kinase 243 U/L (39-308)
[2021-10-07 13:40] LABS: Albumin 61.5 % (55.8-66.1); Total Protein 7.7 g/dL (6.3-8.2)
[2021-10-07 13:49] LABS: ANA Interpretation Negative (Negative)
[2021-10-21 20:10] LABS: Anti-EJ Ab Negative (Negative); Anti-Jo-1 Ab <20 Units (<20); Anti-Ku Ab Negative (Negative); Anti-MDA-5 Ab (CADM-140) <20 Units (<20); Anti-Mi-2-Ab Negative (Negative); Anti-NXP-2 (P140) Ab <20 Units (<20); Anti-OJ Ab Negative (Negative); Anti-PL-12 Ab Negative (Negative); Anti-PL-7 Ab Negative (Negative); Anti-PM/Scl-100 Ab <20 Units (<20); Anti-SRP Ab Negative (Negative); Anti-SS-A 52kD Ab, IgG <20 Units (<20); Anti-TIF-1gamma Ab <20 Units (<20); Anti-U1 RNP Ab <20 Units (<20); Anti-U2 RNP Ab Negative (Negative); Anti-U3 RNP (Fibrillarin) Negative (Negative)
== END 2021-10-06 02:30 | disposition home or self-care (01) ==
LOC: LBO 02:29
PROVIDERS: PCP Family Medicine; Visit Provider Psychiatry & Neurology Neurology
DX: M79.601 Pain in right arm (principal); M79.602 Pain in left arm; K75.81 Nonalcoholic steatohepatitis (NASH); K21.9 Gastro-esophageal reflux disease without esophagitis; M79.18 Myalgia, other site; I10 Essential (primary) hypertension; R73.03 Prediabetes; E53.8 Deficiency of other specified B group vitamins; R68.89 Other general symptoms and signs; G62.89 Other specified polyneuropathies
CPT/HCPCS: 36415; 82550; 83516; 85652; 86235; 82607; 82728; 83036; 84165; 86038; 86140

== ENCOUNTER 2021-10-31 02:49 | Outpatient (CLI) | payer MEDICAID, SELFPAY ==
[2021-10-31 09:44] LABS: Abs Immature Grans 0.01 10^3/uL (0.0-0.06); Absolute Basophil Count 0.03 10^3/uL (0.0-0.2); Absolute Eosinophil Count 0.16 10^3/uL (0.0-0.7); Absolute Lymphocyte Count 1.77 10^3/uL (1.2-3.4); Absolute Monocyte Count 0.27 10^3/uL (0.1-0.8); Absolute Neutrophil Count 3.78 10^3/uL (1.2-6.7); Basophils % 0.5; Eosinophils % 2.7; HCT 47.5 % (40.0-50.0); HGB 16.3 g/dL (13.5-17.5); Immature Grans % 0.2; Lymphocytes % 29.4; MCH 29.7 pg (27.0-33.0); MCHC 34.3 % (32.0-36.0); MCV 86.7 fL (80-95); MPV 10.5 fL (8.0-11.0); Monocytes % 4.5; Neutrophils % 62.7; Nucleated RBC 0 %; Platelet Count 237 10^3/uL (130-400); RBC 5.48 10^6/uL (4.36-5.78); RDW 12.1 % (11.8-14.1); RDW-SD 38.5 fL; WBC 6.02 10^3/uL (4.4-10.8)
[2021-10-31 10:13] LABS: INR 1.1 (0.9-1.1); Prothrombin Time 10.9 sec (9.3-11.0)
[2021-10-31 10:35] LABS: Hemoglobin A1C 5.4 % (<5.7)
[2021-10-31 10:43] LABS: ALT 58 U/L (16-63); AST 25 U/L (15-37); Alkaline Phosphatase 71 U/L (46-116); Anion Gap 9.5 mmol/L (3-11); BUN 10 mg/dL (7-18); CO2 27.5 mmol/L (21.0-32.0); CREATININE 1.1 mg/dL (0.70-1.30); Calcium 8.9 mg/dL (8.5-10.1); Calculated LDL 78 mg/dL (<100); Chloride 107 mmol/L (98-107); Cholesterol 164 mg/dL (<200); Glucose 109 mg/dL (74-106); HDL Cholesterol 30 mg/dL (40-60); Potassium 3.8 mmol/L (3.5-5.1); Sodium 144 mmol/L (136-145); Total Protein 6.9 g/dL (6.4-8.2); Triglyceride 280 mg/dL (<150)
[2021-10-31 11:05] LABS: Ferritin 154 ng/mL (26-388); Vitamin B12 282 pg/mL (193-986)
[2021-11-03 06:52] LABS: Vitamin D 25 Total 9.2 ng/mL (30-100)
[2021-11-03 14:26] LABS: Insulin, Free 172 mcIU/mL (2.6 - 24.9); Insulin, Total 168 mcIU/mL (2.6 - 24.9)
== END 2021-10-31 02:50 | disposition home or self-care (01) ==
LOC: LBO 02:49
PROVIDERS: Surgery; PCP Family Medicine; Visit Provider Internal Medicine
DX: K75.81 Nonalcoholic steatohepatitis (NASH) (principal); E66.9 Obesity, unspecified; Z68.31 Body mass index [BMI] 31.0-31.9, adult
CPT/HCPCS: 36415; 80053; 80061; 82306; 83525; 83527; 82607; 82728; 83036; 85025; 85610

== ENCOUNTER 2021-12-03 01:58 | Outpatient (CLI) | payer MEDICAID, SELFPAY ==
[2021-12-03 11:16] LABS: ALT 56 U/L (16-63); AST 27 U/L (15-37); Albumin 4.2 g/dL (3.4-5.0); Alkaline Phosphatase 70 U/L (46-116); Anion Gap 7.5 mmol/L (3-11); BUN 15 mg/dL (7-18); Bilirubin, Total 0.9 mg/dL (0.2-1.0); CO2 27.5 mmol/L (21.0-32.0); Calcium 8.7 mg/dL (8.5-10.1); Calculated LDL 122 mg/dL (<100); Chloride 108 mmol/L (98-107); Cholesterol 187 mg/dL (<200); Ferritin 150 ng/mL (26-388); Glucose 89 mg/dL (74-106); HDL Cholesterol 34 mg/dL (40-60); Potassium 4.2 mmol/L (3.5-5.1); Sodium 143 mmol/L (136-145); Total Protein 7.1 g/dL (6.4-8.2); Triglyceride 157 mg/dL (<150); Vitamin B12 271 pg/mL (193-986)
[2021-12-03 11:31] LABS: Hemoglobin A1C 5.1 % (<5.7)
[2021-12-04 05:17] LABS: Vitamin D 25 Total 12.9 ng/mL (30-100)
[2021-12-04 15:48] LABS: C-Peptide 2.6 ng/mL (1.1 - 4.4)
[2021-12-05 10:50] LABS: Insulin, Free 14.4 mcIU/mL (2.6 - 24.9)
== END 2021-12-03 01:59 | disposition home or self-care (01) ==
LOC: LBO 01:59
PROVIDERS: PCP Family Medicine; Visit Provider Surgery
DX: R73.01 Impaired fasting glucose (principal); E66.9 Obesity, unspecified; Z68.31 Body mass index [BMI] 31.0-31.9, adult
CPT/HCPCS: 36415; 80053; 80061; 82306; 83525; 83527; 82607; 82728; 83036; 84681

== ENCOUNTER 2022-01-13 19:03 | Outpatient (REF) | payer MEDICAID, SELFPAY ==
[2022-01-13 16:34] LABS: Bacteria Negative HPF (Negative); C & S Indicated? C&S Done As Ordered; Crystals Negative HPF (Negative); Epithelial Cells Negative HPF (Negative); Mucus Negative (Negative); RBC Negative HPF (0-2)
== END 2022-01-13 19:04 | disposition home or self-care (01) ==
LOC: LBN 19:03
PROVIDERS: PCP Family Medicine; Visit Provider Nurse Practitioner Family
DX: R35.0 Frequency of micturition (principal)
CPT/HCPCS: 81015; 87086

== ENCOUNTER 2022-03-12 04:07 | Outpatient (CLI) | payer MEDICAID, SELFPAY ==
[2022-03-12 10:44] LABS: Vitamin B12 280 pg/mL (193-986)
[2022-03-16 10:19] LABS: Intrinsic Factor Blocking Ab Negative (Negative)
== END 2022-03-12 04:08 | disposition home or self-care (01) ==
LOC: LBO 04:07
PROVIDERS: Psychiatry & Neurology Neurology; PCP Family Medicine; Visit Provider Family Medicine
DX: E53.8 Deficiency of other specified B group vitamins (principal); G62.89 Other specified polyneuropathies
CPT/HCPCS: 36415; 82607; 86340

== ENCOUNTER → 2022-04-03 00:17 | Outpatient (CLI) | payer MEDICAID, SELFPAY ==
--- NOTE | 2022-04-03 | DI.US_ITS ---
Exam(s) US RENAL EXAM: US RENAL CLINICAL HISTORY: FREQUENCY OF URINATION R35.0 PRE/POST VOID. TECHNIQUE: Carrizales scale, color and spectral Doppler were used. COMPARISON: No exams were available for comparison FINDINGS: Renal size in cm: Right: 10.9. Left: 9.8. Echogenicity: Normal. Hydronephrosis: No. Cyst or mass: No. Nephrolithiasis: No. Other findings: None. Bladder:Normal. Ureteral jets: Right: Not visualized on this examination. Left: Not visualized on this examination. Prevoid vol:49 cc Postvoid vol:4 cc Prostate: 16 cc Renal color flow: Symmetric and within normal limits. IMPRESSION: Unremarkable examination. DATA REPOSITORY:
== END ==
PROVIDERS: PCP Family Medicine; Visit Provider Nurse Practitioner Family
DX: R35.0 Frequency of micturition (principal)
CPT/HCPCS: 76770

== ENCOUNTER 2022-05-17 14:39 | Emergency (ER) | payer MEDICAID, SELFPAY ==
[2022-05-17 14:42] VITALS: BP 149/71; PULSE 98; RESP 16; TEMP 35.9; O2SAT 99
--- NOTE | 2022-05-17 14:45 | DI.RAD_ITS ---
Exam(s) XR RIBS RT W PA LAT CHEST EXAM: XR RIBS RT W PA LAT CHEST CLINICAL HISTORY: walking into freezer TECHNIQUE: 2D digital imaging was performed. COMPARISON: CR,XR XR CHEST 2V PA LATERAL from 12/21/2020 FINDINGS: RIBS 3 VIEWS-right There are no obvious acute rib fractures evident. No lytic rib lesions identified. CXR- 2 VIEWS: No lung contusion or pneumothorax. There is no pleural effusion evident. Platelike atelectasis or scarring in the left lung base again noted. Heart size remains normal. Mediastinum not widened. IMPRESSION: 1. No obvious rib fractures evident. Also no significant rib lesions. 2. No ipsilateral lung nor pleural abnormality evident. No pneumothorax. DATA REPOSITORY: RADIATION DOSE DELIVERED:
--- NOTE | 2022-05-17 15:11 | ED.GENADUL_ITS ---
Discharge Plan Disposition Patient Disposition: HOME Condition: Stable Discharge Details Clinical Impression: Chest wall injury Primary Care Provider: Tony Dao ED Provider: Maciej Beck Home Meds and New Rx's Prescriptions: Continued gabapentin 300 mg capsule See Rx Instructions PO .COMPLEX Qty: 90 5RF Label Comments: not taking Rx Instructions: 300mg HS x 1wk, then 600mg HS x 1wk, then 300mg am and 600mg HS thereafter orally; Lomaira 8 mg tablet 4 mg PO DAILY AM Rx Instructions: must administer 30 minutes before meals/food tamsulosin 0.4 mg capsule 0.4 mg PO QHS Qty: 30 0RF baclofen 10 mg tablet 20 mg PO QHS Qty: 60 5RF Rx Instructions: Do not drive after taking this. albuterol sulfate [Ventolin HFA] 90 mcg/actuation HFA aerosol inhaler 2 puff inhalation Q6H PRN (Reason: shortness of breath or wheezing) Qty: 18 6RF ibuprofen 800 mg tablet 800 mg PO TID PRN (Reason: pain) Qty: 90 3RF metformin 500 mg tablet extended release 24 hr 2,000 mg PO HS topiramate 25 mg tablet See Rx Instructions PO DAILY Rx Instructions: 1 tab by mouth x14 days, then 2 tabs orally daily; Discharge Instructions Instructions: Rib Contusion (ED) Additional Instructions: X-ray is unremarkable. Cool and/or warm compresses every 2 hours for 20 jh christ. [id number] Tylenol and/or Motrin as directed for discomfort. Please watch for new or worsening symptoms and return to the ER for any concerns. Lastly, please contact your primary care provider tomorrow to discuss your ER visit need for outpatient reevaluation if symptoms are to persist. Discharge Data Discharge Date/Time-TO BE ENTERED AT DEPARTURE: 05/17/22 15:45 Medical Decision Making 32-year-old gentleman reports that 2 days ago he walked backwards into the handle of a freezer door, no fall or high mechanism of injury. Reports since that time the area he struck has been sore. Denies any other injury. Has not taken any [id number] medication for symptoms. Likely chest wall injury but will obtain x-ray to rule out fracture. No discomfort to his abdomen or back. Extremely low suspicion for intra-abdominal injury X-ray unremarkable. Discussed results with patient. Standard discharge and return precautions were provided. Patient understands, is agreeable to this plan, and has no additional questions or concerns upon discharge. This documentation was generated using [employer] system, please disregard any oddities of phrase or misspellings. Medical Records Medical records reviewed: Yes I reviewed the patient's medical records. Imaging Data Radiologic Study: Attestation: I personally reviewed and interpreted this imaging study as follows: Imaging: X-Ray Radiologist's impression: PROCEDURE INFORMATION: Exam: XR Right Ribs Exam date and time: 05/17/2022 3:03 PM Age: 32 years old Clinical indication: Chest wall pain and right-sided; Patient HX: Walking into freezer; Per PT: Hit right side back on freezer handle TECHNIQUE: Imaging protocol: Radiologic exam of the Right ribs. Views: 2 views. COMPARISON: CR XR CHEST 2V PA LATERAL 12/21/2020 9:15 PM FINDINGS: Bones/joints: Normal. Soft tissues: Normal. IMPRESSION: No acute findings. ====== PROCEDURE INFORMATION: Exam: XR Chest Exam date and time: 05/17/2022 3:03 PM Age: 32 years old Clinical indication: Chest wall pain and right-sided; Patient HX: Walking into freezer; Per PT: Hit right side back on freezer handle TECHNIQUE: Imaging protocol: Radiologic exam of the chestViews: 2 views. COMPARISON: CR XR CHEST 2V PA LATERAL 12/21/2020 9:15 PM FINDINGS: Lungs: Unremarkable. No consolidation. Pleural spaces: Unremarkable. No pleural effusion. No pneumothorax. Heart/Mediastinum: Unremarkable. No cardiomegaly. Bones/joints: Unremarkable. IMPRESSION: No acute findings HPI General Mode of arrival: ambulatory . Date/Time Provider Initiated Documentation: 05/17/22 14:49 . Limitations to Documentation: no limitations . Information obtained by: patient . History of Present Illness 32 year old M presents to the emergency department with the chief complaint of R rib injury, described as moderate, with intensity rated at 4. Quality is described as aching, and is localized to the chest. Patient reports no radiation. Patient started experiencing this day(s) (2) and it has been constant. No relieving factors improve symptom(s), Movement worsens symptoms . Patient notes no other symptoms.. Patient did receive the following treatments prior to arrival, none Related Data Home Medications Medication Instructions Recorded Confirmed albuterol sulfate 90 mcg/actuation 2 puff inhalation Q6H PRN 11/13/20 05/17/22 aerosol inhaler (Ventolin HFA) shortness of breath or wheezing #18 grams ibuprofen 800 mg tablet 800 mg PO TID PRN pain #90 tabs 09/11/21 05/17/22 metformin 500 mg tablet,extended 2,000 mg PO HS 03/06/22 05/17/22 release 24 hr topiramate 25 mg tablet See Rx Instructions PO DAILY 03/06/22 05/17/22 gabapentin 300 mg capsule See Rx Instructions PO .COMPLEX 03/10/22 04/21/22 #90 caps baclofen 10 mg tablet 20 mg PO QHS #60 tabs 04/21/22 05/17/22 phentermine 8 mg tablet (Lomaira) 4 mg PO DAILY AM 04/21/22 05/17/22 tamsulosin 0.4 mg capsule 0.4 mg PO QHS #30 caps 04/21/22 05/17/22 Previous Rx's Medication Instructions Recorded albuterol sulfate 90 mcg/actuation 2 puff inhalation Q6H PRN 11/13/20 aerosol inhaler (Ventolin HFA) shortness of breath or wheezing #18 grams ibuprofen 800 mg tablet 800 mg PO TID PRN pain #90 tabs 09/11/21 gabapentin 300 mg capsule See Rx Instructions PO .COMPLEX 03/10/22 #90 caps baclofen 10 mg tablet 20 mg PO QHS #60 tabs 04/21/22 tamsulosin 0.4 mg capsule 0.4 mg PO QHS #30 caps 04/21/22 Allergies Allergy/AdvReac Type Severity Reaction Status Date / Time No Known Allergies Allergy Verified 05/17/22 14:45 General Stated Complaint: Chest/Rib FAITH: 4 Review of Systems Constitutional Constitutional: Denies fever(s) Cardiovascular Cardiovascular: Reports chest pain (R chest wall) and Denies dyspnea Respiratory Respiratory: Denies cough and Denies dyspnea Gastrointestinal Gastrointestinal: Denies abdominal pain, Denies nausea and Denies vomiting Genitourinary Genitourinary: Denies hematuria and Denies dysuria Musculoskeletal Musculoskeletal: Denies back pain, Denies numbness and Denies tingling Integumentary/Breasts Skin/Breast: Denies rash Neurologic Neurologic: Denies numbness and Denies tingling PFSH All Active Problems Nasal valve collapse (Acute ~04/2022) Obstructive sleep apnea (adult) (pediatric) (Acute ~04/2022) Nasal obstruction (Acute ~04/2022) 05/18/22 Otolaryngology Chest wall injury (Acute) B12 deficiency (Acute) Insulin resistance (Acute 02/24/22) Vitamin D deficiency, unspecified (Acute) Obstructive sleep apnea (Chronic) GERD (gastroesophageal reflux disease) (Chronic) Class 1 obesity with body mass index (BMI) of 31.0 to 31.9 in adult (Acute ~09/23 02/13) 12/10/21 [facility] Myalgia (Acute ~10/09/21) Enlarged testicle (Acute) Leg pain, posterior (Acute) Dental abscess (Acute) GORDON (nonalcoholic steatohepatitis) (Acute ~07/2021) [place]04/[place] [facility] [place] Allan Salazar, dental (Acute) Rebound headache (Acute) Sore throat (Acute) Nasal congestion (Acute) Chronic nasal congestion (Acute) Deviated nasal septum (Acute) Hypertrophy of both inferior nasal turbinates (Acute) Chronic rhinitis (Acute) Contusion of great toe (Acute) Leg cramps, sleep related (Acute) Arthritis of knee (Acute) BMI 32.0-32.9,adult (Acute 11/06/20) DELMIS on CPAP (Chronic 01/01/21) Bronchitis (Acute) Post-immunization reaction (Acute) Pneumonia (Acute) Transaminitis (Acute) Liver cyst (Acute) Right-sided chest pain (Acute) Excessive sleepiness (Acute) Esophagitis determined by endoscopy (Acute) Epigastric pain (Acute) Hepatic cyst (Acute) BRBPR (bright red blood per rectum) (Acute) Leg length discrepancy (Acute) Essential hypertension (Acute) Scoliosis (Acute) Family history of pancreatic cancer (Acute) Family history of colon cancer (Chronic) Mother, age 53 Elevated fasting glucose (Acute) Hiatal hernia with gastroesophageal reflux (Acute) Insomnia (Acute) Depression (Chronic) Asthma (Chronic) Medical History Dyspepsia Tendinitis of right quadriceps tendon Surgical History History of colonoscopy (~09/13/20) History of esophagogastroduodenoscopy (EGD) (~09/13/20) Hx of esophagogastroduodenoscopy Spring 2019 No significant past surgical history S/P nasal surgery Bilateral excisional inferior turbinoplasty (05/19/2021) Family History Maternal Grandmother Pancreatic cancer Diabetes Paternal Grandmother Diabetes Father Heart disease Hypertension Mother Colon cancer Social History Smoking/Tobacco Use Status: Former Tobacco Use Quit Date: 06/25/20 Tobacco: How many years used: 10 Second Hand Exposure: No Smoking risk assessment performed?: Yes Alcohol Intake: current Alcohol Intake frequency: holidays/special occasions only Drug use: Never Substance use type: does not use Details: pt. reports no alcohol use Adopted: Yes Caregiver/Support person: No Foster care: Yes Household members: significant other Housing: apartment Number of Children: 0 Communication Needs: None Education Level: high school Do you need help understanding health information?: Never current occupation: [employer] Pets and animals: Yes Pets and animals: cat(s) and bird(s) Sexually active: No Do you think of yourself as: Decline to Provide Current gender identity: male What is your relationship status?: living with partner How often do you get together with friends or relatives?: twice per week How often do you attend restorationism or latter day services?: decline to answer Do you belong to any clubs or organized social groups?: no Panel score (0-1 are the most socially isolated patients): 1 What type of physical activity do you participate in: walking and independent ambulation Frequency: 1-2 times per week Stefanie/Restorationist: No preference Special stefanie needs: No Agree to transfusion: Yes Seatbelt use: sometimes Helmet use: No Drive intox or ride w/intox bulk driver: No Working smoke detector in home: Yes Fire extinguisher in home: Yes Carbon monox detector in home: Yes Firearms in home: No Do you feel safe at home: Yes Do you feel safe in your relationship?: Yes Exam Const General: cooperative, healthy appearing, comfortable and no acute distress Orientation: alert and awake [facility] Head: normal to inspection, normocephalic and atraumatic Eyes General: appearance normal, both eyes and all related structures Conjunctivae: conjunctivae normal Neck Neck: normal visual inspection, full ROM, trachea midline and supple Chest Chest: normal inspection of the chest Chest/axillae images: 1. Mild right lateral inferior chest wall discomfort. No crepitus. Resp Effort & Inspection: normal respiratory effort and able to speak in complete sentences Auscultation: clear to auscultation bilaterally Cardio Rate: regular rate Rhythm: regular rhythm GI Inspection: normal to inspection Palpation: soft, not firm, no guarding and nontender Back/Spine/Pelvis Back: no CVA tenderness and No back tenderness Skin General skin exam: no rashes or lesions noted Neuro General: patient alert, patient awake, moves all extremities and no focal motor deficits Sensory Exam: no sensory deficits noted Psych Appearance: grossly normal Mental Status: mental status grossly normal Course Vital Signs Vital signs: Vital Signs Temperature 35.9 C L 05/17/22 14:42 Pulse 98 H 05/17/22 14:42 Respiratory Rate 16 05/17/22 14:42 Blood Pressure 149/71 H 05/17/22 14:42 Pulse Oximetry 99 05/17/22 14:42 Temperature 35.9 C L 05/17/22 14:42 Temperature Source Tympanic 05/17/22 14:42 Pulse 98 H 05/17/22 14:42 Respiratory Rate 16 05/17/22 14:42 Respiratory Effort Non-Labored 05/17/22 14:48 Respiratory Depth Normal 05/17/22 14:48 Respiratory Pattern Normal 05/17/22 14:48 Blood Pressure 149/71 H 05/17/22 14:42 Blood Pressure Position Sitting 05/17/22 14:42 Pulse Oximetry 99 05/17/22 14:42 Oxygen Delivery Method Room Air 05/17/22 14:42 Oxygen Flow Rate 0 05/17/22 14:42 Pain Level 10 05/17/22 14:48 Comment no ice or heat used 05/17/22 14:42
--- NOTE | 2022-05-17 15:36 | DI.VRAD_ITS ---
PROCEDURE INFORMATION: Exam: XR Right Ribs Exam date and time: 05/17/2022 3:03 PM Age: 32 years old Clinical indication: Chest wall pain and right-sided; Patient HX: Walking into freezer; Per PT: Hit right side back on freezer handle TECHNIQUE: Imaging protocol: Radiologic exam of the Right ribs. Views: 2 views. COMPARISON: CR XR CHEST 2V PA LATERAL 12/21/2020 9:15 PM FINDINGS: Bones/joints: Normal. Soft tissues: Normal. IMPRESSION: No acute findings. PROCEDURE INFORMATION: Exam: XR Chest Exam date and time: 05/17/2022 3:03 PM Age: 32 years old Clinical indication: Chest wall pain and right-sided; Patient HX: Walking into freezer; Per PT: Hit right side back on freezer handle TECHNIQUE: Imaging protocol: Radiologic exam of the chest. Views: 2 views. COMPARISON: CR XR CHEST 2V PA LATERAL 12/21/2020 9:15 PM FINDINGS: Lungs: Unremarkable. No consolidation. Pleural spaces: Unremarkable. No pleural effusion. No pneumothorax. Heart/Mediastinum: Unremarkable. No cardiomegaly. Bones/joints: Unremarkable. IMPRESSION: No acute findings. Dictated and Authenticated by: Nathaniel Dean MD. Ordering:BASIA Wing MD
== END 2022-05-17 15:45 | disposition home or self-care (01) ==
PROVIDERS: Emergency Provider Physician Assistant; PCP Family Medicine
DX: S29.9XXA Unspecified injury of thorax, initial encounter (principal); Z87.891 Personal history of nicotine dependence; X58.XXXA Exposure to other specified factors, initial encounter; Y93.89 Activity, other specified
CPT/HCPCS: 99283; 71046; 71100; 99282

== ENCOUNTER → 2022-07-14 12:01 | Outpatient (CLI) | payer MEDICAID, SELFPAY ==
--- NOTE | 2022-07-14 08:15 | DI.RAD_ITS ---
Exam(s) XR HIP RT COMPLETE AP PELVIS EXAM: XR HIP RT COMPLETE AP PELVIS CLINICAL HISTORY: Pain at [facility] after a fall,[id number]. TECHNIQUE: 2D digital imaging was performed. COMPARISON: No exams were available for comparison FINDINGS: Two views:: There is no evidence fracture or dislocation nor hip joint space narrowing. Bone density normal. No osseous lesions. No erosions. IMPRESSION: No significant osseous findings. No fracture DATA REPOSITORY: RADIATION DOSE DELIVERED:
== END ==
PROVIDERS: PCP Family Medicine; Visit Provider Family Medicine
DX: W10.8XXA Fall (on) (from) other stairs and steps, initial encounter (principal); M53.3 Sacrococcygeal disorders, not elsewhere classified
CPT/HCPCS: 73502

== ENCOUNTER 2022-07-17 01:03 | Outpatient (CLI) | payer MEDICAID, SELFPAY ==
[2022-07-17 11:02] LABS: Vitamin B12 458 pg/mL (193-986)
== END 2022-07-17 01:04 | disposition home or self-care (01) ==
PROVIDERS: PCP Family Medicine; Visit Provider Family Medicine
DX: E53.8 Deficiency of other specified B group vitamins (principal)
CPT/HCPCS: 36415; 82607

== ENCOUNTER 2022-08-14 10:29 | Outpatient (CLI) | payer MEDICAID, SELFPAY ==
--- NOTE | 2022-08-14 10:00 | DI.RAD_ITS ---
Exam(s) XR LUMBAR SPINE AP, LAT EXAM: XR LUMBAR SPINE AP, LAT CLINICAL HISTORY: eval lumbar spine for bilateral legpain. TECHNIQUE: 2D digital imaging was performed of the lumbar spine. Two images were obtained. AP and lateral views were obtained. COMPARISON: MR MR LUMBAR SPINE WO from 08/12/2020 FINDINGS: BONES: No fracture or destructive lesion. Vertebral bodies are unremarkable. No facet hypertrophy deo ntified. DISKS: Intervertebral disc spaces are maintained. ALIGNMENT: Lumbar spinal alignment is within normal limits. SOFT TISSUE: Normal. IMPRESSION: Unremarkable radiographs of the lumbar spine. DATA REPOSITORY: RADIATION DOSE DELIVERED:
== END 2022-08-14 10:30 | disposition home or self-care (01) ==
LOC: DIORS 10:30
PROVIDERS: PCP Family Medicine; Referring Provider Family Medicine; Visit Provider Student in an Organized Health Care Education/Training Program
DX: M79.604 Pain in right leg (principal); M79.605 Pain in left leg
CPT/HCPCS: 72100

== ENCOUNTER 2023-01-15 14:06 | Emergency (ER) | payer MEDICAID, SELFPAY ==
[2023-01-15 14:09] VITALS: BP 102/74; PULSE 67; RESP 18; TEMP 37.1; O2SAT 99
--- NOTE | 2023-01-15 14:36 | ED.GENADUL_ITS ---
Discharge Plan Disposition Patient Disposition: Home Discharge Details Clinical Impression: Arthralgia of knee, left Primary Care Provider: Tony Dao ED Provider: Kevin Block Home Meds and New Rx's Prescriptions: Continued Lomaira 8 mg tablet 4 mg PO DAILY AM Rx Instructions: must administer 30 minutes before meals/food acetaminophen 500 mg tablet 1,000 mg PO Q6H PRN (Reason: back pain) esomeprazole magnesium 20 mg capsule,delayed release(DR/EC) 20 mg PO DAILY PRN (Reason: chest pain, GERD) Qty: 60 0RF albuterol sulfate [Ventolin HFA] 90 mcg/actuation HFA aerosol inhaler 2 puff inhalation Q6H PRN (Reason: shortness of breath or wheezing) Qty: 18 6RF ibuprofen 800 mg tablet 800 mg PO TID PRN (Reason: pain) Qty: 90 3RF Rx Instructions: Take with food Discharge Instructions Instructions: Knee Pain (ED) Additional Instructions: Please continue to take your ibuprofen and acetaminophen as needed for pain. Please wear the knee brace at all times during activity. If you have any new or significant worsening of symptoms feel free to return the emergency department for reassessment otherwise follow-up with primary care provider for recheck in 2 weeks. Stand Alone Forms: Work Release Referrals: Tony Dao DO [Primary Care Provider] - 2 weeks Discharge Data Discharge Date/Time-TO BE ENTERED AT DEPARTURE: 01/15/23 15:00 Medical Decision Making Patient presenting to the emergency department for chief complaint of left knee pain. Patient reports that when getting out of bed he slightly twisted and felt significant pain in his left knee. Patient denies any other injury or trauma, does state some weightbearing which is painful. Patient denies fever or chills, warmth, redness, other joint involvement, rash and all other symptoms. Physical exam shows medial joint line tenderness along with Nadya's tenderness medially. Ligamentous exam is normal, no tenderness to palpation of bony prominences, no other signs of injury or trauma. Given no blunt injury or trauma, Whitley knee rules utilized and I do not feel that patient requires radiological imaging of the knee so we will treat patient symptomatically with hinged knee brace, work note for light duty, and close return and follow-up precautions. Patient to follow-up with primary care provider in 2 weeks for reassessment to reassess the need for imaging or referral to Ortho if needed. After discussion of diagnosis and plan of care patient has no further needs, questions, or concerns and states clear understanding to return to the emergency department for any worsening symptoms. This documentation was generated using [employer] system, please disregard any oddities of phrase or misspellings. HPI General Mode of arrival: ambulatory . Date/Time Provider Initiated Documentation: 01/15/23 14:19 . Limitations to Documentation: no limitations . Information obtained by: patient and RN notes reviewed . History of Present Illness 32 year old M presents to the emergency department with the chief complaint of left knee pain , described as moderate, Quality is described as sharp, and is localized to the left and lower extremity. Patient started experiencing this hour(s) (4) and it has been constant. Rest improves symptom(s), Movement worsens symptoms . Patient notes no other symptoms.. Patient did receive the following treatments prior to arrival, NSAID Related Data Home Medications Medication Instructions Recorded Confirmed albuterol sulfate 90 mcg/actuation 2 puff inhalation Q6H PRN 11/13/20 10/26/22 aerosol inhaler (Ventolin HFA) shortness of breath or wheezing #18 grams phentermine 8 mg tablet (Lomaira) 4 mg PO DAILY AM 04/21/22 10/26/22 acetaminophen 500 mg tablet 1,000 mg PO Q6H PRN back pain 07/14/22 10/26/22 esomeprazole magnesium 20 mg 20 mg PO DAILY PRN chest pain, 09/01/22 10/26/22 capsule,delayed release GERD #60 caps ibuprofen 800 mg tablet 800 mg PO TID PRN pain #90 tabs 09/23/22 10/26/22 Previous Rx's Medication Instructions Recorded albuterol sulfate 90 mcg/actuation 2 puff inhalation Q6H PRN 11/13/20 aerosol inhaler (Ventolin HFA) shortness of breath or wheezing #18 grams esomeprazole magnesium 20 mg 20 mg PO DAILY PRN chest pain, 09/01/22 capsule,delayed release GERD #60 caps ibuprofen 800 mg tablet 800 mg PO TID PRN pain #90 tabs 09/23/22 Allergies Allergy/AdvReac Type Severity Reaction Status Date / Time No Known Allergies Allergy Verified 10/26/22 11:18 General Stated Complaint: Orthopedic FAITH: 4 Review of Systems Narrative: 6 systems reviewed and unremarkable except what is marked below. Musculoskeletal Musculoskeletal: Reports as per HPI, Reports arthralgias, Denies joint swelling and Denies limited range of motion PFSH All Active Problems (Updated 01/15/23 @ 16:58 by Jackie Johnson) Mild binge-eating disorder (Acute) Attention-deficit hyperactivity disorder, combined type (Acute) Arthralgia of knee, left (Acute) Abnormal auditory perception of both ears (Acute) Nocturia (Acute) [facility] [place] Medicine 09/10/22 NAFLD (nonalcoholic fatty liver disease) (Acute) [facility] [place] Weight & Wellness 08/27/22 Intermittent claudication (Acute) [facility] [place] Vascular 09/03/22 Allergic rhinitis, unspecified (Acute ~09/07/22) Chest discomfort (Acute) Obstructive sleep apnea (adult) (pediatric) (Acute ~04/2022) 07/02/22 per Sleep Note - has difficulty using CPAP Fall (on) (from) other stairs and steps, initial encounter (Acute) Encounter for fertility planning (Acute) Nasal valve collapse (Acute ~04/2022) Nasal obstruction (Acute ~04/2022) 05/18/22 Otolaryngology B12 deficiency (Acute) Insulin resistance (Acute 02/24/22) Vitamin D deficiency, unspecified (Acute) Obstructive sleep apnea (Chronic) GERD (gastroesophageal reflux disease) (Chronic) [facility] [place] Gastro - Heartburn 09/04/22 GERD w/esophagitis, w/out hemorrhage Class 1 obesity with body mass index (BMI) of 31.0 to 31.9 in adult (Acute ~10/09/21) 12/10/21 [facility] Weight Wellness Telehealth Myalgia (Acute ~10/09/21) Enlarged testicle (Acute) Leg pain, posterior (Acute) Dental abscess (Acute) GORDON (nonalcoholic steatohepatitis) (Acute ~07/2021) 08/04/21 [facility] [place] GI note Dr Lemus Pain, dental (Acute) Rebound headache (Acute) Sore throat (Acute) Nasal congestion (Acute) Chronic nasal congestion (Acute) Deviated nasal septum (Acute) Hypertrophy of both inferior nasal turbinates (Acute) Chronic rhinitis (Acute) Contusion of great toe (Acute) Leg cramps, sleep related (Acute) Arthritis of knee (Acute) BMI 32.0-32.9,adult (Acute 11/06/20) DELMIS on CPAP (Chronic 01/01/21) Bronchitis (Acute) Post-immunization reaction (Acute) Pneumonia (Acute) Transaminitis (Acute) Liver cyst (Acute) Right-sided chest pain (Acute) Excessive sleepiness (Acute) Esophagitis determined by endoscopy (Acute) Epigastric pain (Acute) Hepatic cyst (Acute) BRBPR (bright red blood per rectum) (Acute) Leg length discrepancy (Acute) Essential hypertension (Acute) Scoliosis (Acute) Family history of pancreatic cancer (Acute) Family history of colon cancer (Chronic) Mother, age 53 Elevated fasting glucose (Acute) Hiatal hernia with gastroesophageal reflux (Acute) Insomnia (Acute) Depression (Chronic) Asthma (Chronic) Medical History Dyspepsia Tendinitis of right quadriceps tendon Surgical History H/O nasal septoplasty (06/11/22) Septoplasty and turbinate reduction History of colonoscopy (~09/13/20) History of esophagogastroduodenoscopy (EGD) (~09/13/20) Hx of esophagogastroduodenoscopy Spring 2019 S/P nasal surgery Bilateral excisional inferior turbinoplasty (05/19/2021) Family History Maternal Grandmother Pancreatic cancer Diabetes Paternal Grandmother Diabetes Father Heart disease Hypertension Mother Colon cancer Social History Smoking/Tobacco Use Status: Former Tobacco Use Quit Date: 06/25/20 Tobacco: How many years used: 10 Second Hand Exposure: No Smoking risk assessment performed?: Yes Alcohol Intake: current Alcohol Intake frequency: holidays/special occasions only Drug use: Never Substance use type: does not use Details: pt. reports no alcohol use Adopted: Yes Caregiver/Support person: No Foster care: Yes Household members: significant other Housing: apartment Number of Children: 0 Communication Needs: None Education Level: high school Do you need help understanding health information?: Never current occupation: [employer] Pets and animals: Yes Pets and animals: cat(s) and bird(s) Sexually active: No Do you think of yourself as: Decline to Provide Current gender identity: male What is your relationship status?: living with partner How often do you get together with friends or relatives?: twice per week How often do you attend mu-ism or yazidism services?: decline to answer Do you belong to any clubs or organized social groups?: no Panel score (0-1 are the most socially isolated patients): 1 What type of physical activity do you participate in: walking and independent ambulation Frequency: 1-2 times per week Stefanie/Taoist: No preference Special stefanie needs: No Agree to transfusion: Yes Seatbelt use: sometimes Helmet use: No Drive intox or ride w/intox driver's education instructor: No Working smoke detector in home: Yes Fire extinguisher in home: Yes Carbon monox detector in home: Yes Firearms in home: No Do you feel safe at home: Yes Do you feel safe in your relationship?: Yes Exam Const General: cooperative, no acute distress and not ill appearing Orientation: alert, awake and oriented x3 HENMT Mouth: moist mucous membranes Resp Effort & Inspection: normal respiratory effort, able to speak in complete sentences and no respiratory distress Cardio Rate: regular rate Rhythm: regular rhythm Pulses: normal peripheral pulses Skin General skin exam: no rashes or lesions noted Neuro General: patient alert, patient awake, patient oriented x3, moves all extremities and no focal motor deficits Sensory Exam: no sensory deficits noted Extrem General: normal exam except as noted Left lower extremity: knee Details: normal to inspection, tenderness Location: of the medial joint line, normal ROM, knee ligament exam normal and Nadya's Test Details: positive medially; no abrasions, no ecchymosis and no deformity Course Vital Signs Vital signs: Vital Signs Temperature 37.1 C 01/15/23 14:09 Pulse 67 01/15/23 14:09 Respiratory Rate 18 01/15/23 14:09 Blood Pressure 102/74 01/15/23 14:09 Pulse Oximetry 99 01/15/23 14:09 Temperature 37.1 C 01/15/23 14:09 Temperature Source Oral 01/15/23 14:09 Pulse 67 01/15/23 14:09 Respiratory Rate 18 01/15/23 14:09 Respiratory Effort Normal 01/15/23 14:13 Blood Pressure 102/74 01/15/23 14:09 Blood Pressure Position Sitting 01/15/23 14:09 Pulse Oximetry 99 01/15/23 14:09 Oxygen Delivery Method Room Air 01/15/23 14:09 Oxygen Flow Rate 0 01/15/23 14:09 Pain Level 9 01/15/23 14:09
[2023-01-15] MEDS: Acetaminophen 500 MG TAB 1000 MG PO (14:47)
--- NOTE | 2023-01-15 14:51 | NUR.NOTE ---
Nursing Note: PT needs follow up in 2 weeks with PCP for knee pain. Nataliia, ED
[2023-01-15 14:58] VITALS: BP 100/82; PULSE 64; RESP 18; O2SAT 99
== END 2023-01-15 15:00 | disposition home or self-care (01) ==
PROVIDERS: Emergency Provider Nurse Practitioner Family; PCP Family Medicine
DX: M25.562 Pain in left knee (principal)
CPT/HCPCS: 99283

== ENCOUNTER 2023-02-19 00:49 | Outpatient (CLI) | payer MEDICAID, SELFPAY ==
--- NOTE | 2023-02-19 06:45 | DI.MRI_ITS ---
Exam(s) MR LOWER JOINT RT WO EXAM: MR LOWER JOINT RT WO CLINICAL HISTORY: ? new meniscal tear,BILAT KNEE PAIN,M25.561,M25.562. TECHNIQUE: Multiplanar multisequence MRI was performed. COMPARISON: MR MR LOWER JOINT RT WO from 05/27/2021 FINDINGS: BONES: There is no fracture or contusion pattern. JOINTS: Articular cartilage is unremarkable. No effusion is present. TENDONS: Extensor mechanism: Unremarkable. Medial retinaculum: Unremarkable. Lateral retinaculum: Unremarkable. Popliteus: Unremarkable. MUSCLES: Unremarkable. MENISCI: The medial meniscus is unremarkable. The lateral meniscus is unremarkable. SOFT TISSUES: Unremarkable. LIGAMENTS: Anterior Cruciate: Unremarkable. Posterior Cruciate: Unremarkable. Medial Collateral:Unremarkable. Lateral Collateral: Unremarkable. OTHER: IMPRESSION: Unremarkable MRI of the right knee. DATA REPOSITORY:
--- NOTE | 2023-02-19 06:45 | DI.MRI_ITS ---
Exam(s) MR LOWER JOINT LT WO EXAM: MR LOWER JOINT LT WO CLINICAL HISTORY: BILAT KNEE PAIN,M25.561,M25.562,? NEW MENISCAL TEAR. TECHNIQUE: Multiplanar multisequence MRI was performed. COMPARISON: There are no priors for comparison. FINDINGS: BONES: There is no fracture or contusion pattern. JOINTS: Articular cartilage is unremarkable. No effusion is present. TENDONS: Extensor mechanism: Unremarkable. Medial retinaculum: Unremarkable. Lateral retinaculum: Unremarkable. Popliteus: Unremarkable. MUSCLES: Unremarkable. MENISCI: The medial meniscus is unremarkable. The lateral meniscus is unremarkable. SOFT TISSUES: Unremarkable. LIGAMENTS: Anterior Cruciate: Unremarkable. Posterior Cruciate: Unremarkable. Medial Collateral:Unremarkable. Lateral Collateral: Unremarkable. OTHER: There is appear to be a tiny popliteal cyst. IMPRESSION: No evidence of a meniscal or ligament tear. No acute abnormality. DATA REPOSITORY:
== END 2023-02-19 01:09 ==
LOC: DI 00:49
PROVIDERS: PCP Family Medicine; Visit Provider Family Medicine
DX: M25.561 Pain in right knee (principal); M25.562 Pain in left knee
CPT/HCPCS: 73721

== ENCOUNTER 2023-04-08 17:18 | Emergency (ER) | payer MEDICAID, SELFPAY ==
[2023-04-08] VITALS (25 sets, daily range): BP systolic 109–128; BP diastolic 57–86; PULSE 53–79; RESP 11–22; TEMP 36.4–36.6; O2SAT 99
--- NOTE | 2023-04-08 17:15 | RT.EKG_ITS ---
APPROVED REPORT Exam: Resting ECG Reason for Exam: chest pain Patient Location: E HR:57 bpm ECG Measurements Heart Rate 57 AXIS IN 170 P 56 QRSd 84 QRS 50 QT 408 T 57 QTc 399 Conclusion Sinus bradycardia...rate< 60 Physician: no stemi
--- NOTE | 2023-04-08 17:30 | DI.RAD_ITS ---
Exam(s) XR PORTABLE CHEST AP EXAM: XR PORTABLE CHEST AP CLINICAL HISTORY: chest pain, central TECHNIQUE: 2D digital imaging was performed. COMPARISON: CR,XR XR RIBS RT W PA LAT CHEST from 05/17/2022 FINDINGS: Leads overlie the chest. LUNGS: Clear. No pleural abnormality seen. HEART: Normal size. AORTA: Normal diameter. BONES: Unremarkable for age. Soft tissues: Unremarkable. IMPRESSION: No acute findings. DATA REPOSITORY: RADIATION DOSE DELIVERED:
[2023-04-08] MEDS: Aspirin 325 MG TAB PO (17:41)
[2023-04-08 17:50] LABS: Abs Immature Grans 0.02 10^3/uL (0.0-0.06); Absolute Basophil Count 0.05 10^3/uL (0.0-0.2); Absolute Eosinophil Count 0.15 10^3/uL (0.0-0.7); Absolute Lymphocyte Count 2.05 10^3/uL (1.2-3.4); Absolute Monocyte Count 0.37 10^3/uL (0.1-0.8); Basophils % 0.7; HCT 47.7 % (40.0-50.0); HGB 16.8 g/dL (13.5-17.5); Immature Grans % 0.3; Lymphocytes % 27.2; MCH 29.4 pg (27.0-33.0); MCHC 35.2 % (32.0-36.0); MCV 84 fL (80-95); MPV 10.7 fL (8.0-11.0); Monocytes % 4.9; Neutrophils % 64.9; Platelet Count 282 10^3/uL (130-400); RBC 5.71 10^6/uL (4.36-5.78); RDW 12.4 % (11.8-14.1); RDW-SD 37.5 fL; WBC 7.54 10^3/uL (4.4-10.8)
[2023-04-08 18:12] LABS: ALT 23 U/L (16-63); AST 14 U/L (15-37); Albumin 4.4 g/dL (3.4-5.0); Alkaline Phosphatase 85 U/L (46-116); Anion Gap 13.2 mmol/L (3-11); BUN 11 mg/dL (7-18); Bilirubin, Total 0.9 mg/dL (0.2-1.0); CO2 23.8 mmol/L (21.0-32.0); CREATININE 1.2 mg/dL (0.70-1.30); Calcium 9.3 mg/dL (8.5-10.1); Chloride 104 mmol/L (98-107); Estimated GFR 81.89 (mL/min/1.73m2); Glucose 92 mg/dL (74-106); Lipase 37 U/L (16-77); Potassium 3.7 mmol/L (3.5-5.1); Sodium 141 mmol/L (136-145); Total Protein 7.9 g/dL (6.4-8.2); Troponin I < 50 ng/L (<or=60)
--- NOTE | 2023-04-08 18:13 | W.ED.GENAD ---
Discharge Plan Disposition Patient Disposition: Home Discharge Details Clinical Impression: Chest discomfort Primary Care Provider: Tony Dao ED Provider: Vega Domingeuz Home Meds and New Rx's Prescriptions: No Action esomeprazole magnesium 20 mg capsule,delayed release(DR/EC) 20 mg PO DAILY PRN (Reason: chest pain, GERD) Qty: 90 3RF celecoxib 200 mg capsule 200 mg PO BID PRN (Reason: pain) Qty: 60 1RF Rx Instructions: Poor tolerance of non-selective NSAIDs acetaminophen 500 mg tablet 1,000 mg PO Q6H PRN (Reason: back pain) albuterol sulfate [Ventolin HFA] 90 mcg/actuation HFA aerosol inhaler 2 puff inhalation Q6H PRN (Reason: shortness of breath or wheezing) Qty: 18 6RF lorazepam 1 mg tablet 1 mg PO ONCE Qty: 1 0RF Rx Instructions: Take one hour prior to MRI. lisdexamfetamine [Vyvanse] 30 mg capsule 30 mg PO DAILY Patient Comments: TAKE ONE CAPSULE BY MOUTH EVERY MORNING Discharge Instructions Instructions: Chest Pain (ED) Additional Instructions: At this time your work-up is returned reassuring. Your EKG shows no signs of heart attack, your blood work shows no signs of cardiac strain. Your D-dimer test was negative, with no suggestion of blood clots. Your pancreatic numbers are normal. Your x-ray shows no evidence of popped lung or tumor or mass. As we discussed together, please continue to monitor your symptoms closely. Is my recommendation that you start a food and activities diary closely evaluating the nuances of each day to help look for trends of what may be bringing about the symptoms. Please feel free to speak further with your primary care provider about potential Holter monitor or stress testing. If you notice any worsening of your symptoms, or any new symptoms such as vomiting, diarrhea, fever, chills, shortness of breath, chest pain, numbness, weakness, or fainting , please return immediately to the emergency department for reevaluation. Please follow up with your primary care provider as soon as possible for reassessment and reevaluation. As always, it was a pleasure participating in your medical care today. Referrals: Tony Dao DO [Primary Care Provider] - Medical Decision Making 32-year-old male with a past medical history of ADHD, nonalcoholic fatty liver disease, GERD, scoliosis, who presents today for evaluation of chest pressure. He states that last night while playing a video game he developed mild chest pressure. It was achy in nature. It slightly radiated to his right arm. It continued throughout the night and kept him up throughout the night. He was improved when he took ibuprofen. It was not made worse by anything. He denies any exertional components. He denies any cough, fever or chills. He has had pain similar to this in the past months ago, and he has been evaluated in the ED for this. Work-ups at those times were unremarkable. He denies any history of cardiac disease at a young age in his family. He does not smoke or vape. No other complaints at this time. No tearing or ripping sensation. No other modifying factors. Exam demonstrates a well-appearing male, vital signs stable, no reproducible chest pain of significance. Lungs are clear. Pulses are equal and symmetric. EKG shows no evidence of STEMI. Suspect mild musculoskeletal etiology. Cardiac etiology less likely. Pericarditis is on the differential but less likely. We will get a D-dimer, evaluate for concerning findings, monitor closely and reassess. EKG is benign on read. 8 PM Laboratory work-up has returned normal, no white count bandemia or left shift. D-dimer normal, troponin normal, EKG normal. Renal function normal. Lipase normal. Chest x-ray negative for acute process. Symptoms appear notably clinically inconsistent for dissection, PE, pneumonia, pneumothorax, ACS. Potential pericardial irritation is possible. Potential pleurisy or musculoskeletal component is possible. Potential peripheral radiculopathy is on the differential. All of which at this time demonstrate no evidence of acute life-threatening etiology. Patient stable for discharge. Patient does have a scheduled appointment with his primary care provider tomorrow. Will recommend close follow-up. Discussed potential for outpatient stress testing notably nonemergent basis, as well as potential Holter monitor. Discussed red flags for which to return. I have extensively reviewed the treatment plan and discharge instructions with the patient. I have addressed all patient concerns at this time. The patient was made aware of what symptoms to monitor for that would warrant a return to the emergency department. Discussed the plan with the patient, they demonstrate verbal understanding and agreement with our assessment and plan at this time. The documentation in this chart was dictated using [employer] dictation software. Please excuse any dictation errors. FINDINGS: Lungs: Unremarkable. No consolidation. Pleural spaces: Unremarkable. No pleural effusion. No pneumothorax. Heart/Mediastinum: Unremarkable. No cardiomegaly. Bones/joints: Unremarkable. IMPRESSION: No acute findings. Dictated and Authenticated by: Antonio Kelly MD. HPI General Date/Time Provider Initiated Documentation: 04/08/23 17:30. HPI Narrative: 32-year-old male with a past medical history of ADHD, nonalcoholic fatty liver disease, GERD, scoliosis, who presents today for evaluation of chest pressure. He states that last night while playing a video game he developed mild chest pressure. It was achy in nature. It slightly radiated to his right arm. It continued throughout the night and kept him up throughout the night. He was improved when he took ibuprofen. It was not made worse by anything. He denies any exertional components. He denies any cough, fever or chills. He has had pain similar to this in the past months ago, and he has been evaluated in the ED for this. Work-ups at those times were unremarkable. He denies any history of cardiac disease at a young age in his family. He does not smoke or vape. No other complaints at this time. No tearing or ripping sensation. No other modifying factors. Related Data Home Medications Medication Instructions Recorded Confirmed albuterol sulfate 90 mcg/actuation 2 puff inhalation Q6H PRN 11/13/20 04/08/23 aerosol inhaler (Ventolin HFA) shortness of breath or wheezing #18 grams acetaminophen 500 mg tablet 1,000 mg PO Q6H PRN back pain 07/14/22 02/02/23 celecoxib 200 mg capsule 200 mg PO BID PRN pain #60 caps 02/02/23 02/02/23 esomeprazole magnesium 20 mg 20 mg PO DAILY PRN chest pain, 02/02/23 04/08/23 capsule,delayed release GERD #90 caps lorazepam 1 mg tablet 1 mg PO ONCE anxiety #1 tab 02/04/23 04/08/23 lisdexamfetamine 30 mg capsule 30 mg PO DAILY 04/08/23 04/08/23 (Vyvanse) Previous Rx's Medication Instructions Recorded albuterol sulfate 90 mcg/actuation 2 puff inhalation Q6H PRN 11/13/20 aerosol inhaler (Ventolin HFA) shortness of breath or wheezing #18 grams celecoxib 200 mg capsule 200 mg PO BID PRN pain #60 caps 02/02/23 esomeprazole magnesium 20 mg 20 mg PO DAILY PRN chest pain, 02/02/23 capsule,delayed release GERD #90 caps lorazepam 1 mg tablet 1 mg PO ONCE anxiety #1 tab 02/04/23 Allergies Allergy/AdvReac Type Severity Reaction Status Date / Time No Known Allergies Allergy Verified 04/08/23 17:26 General Stated Complaint: Chest Pain FAITH: 3 Review of Systems All systems reviewed & are unremarkable except as noted in HPI and below PFSH All Active Problems (Updated 04/08/23 @ 19:11 by Vega Dominguez DO) Chest discomfort (Acute) Bilateral knee pain (Acute) Mild binge-eating disorder (Acute) Attention-deficit hyperactivity disorder, combined type (Acute) Arthralgia of knee, left (Acute) Abnormal auditory perception of both ears (Acute) Nocturia (Acute) [facility] Sleep Medicine 09/10/22 NAFLD (nonalcoholic fatty liver disease) (Acute) [facility] Weight & Wellness 08/27/22 Intermittent claudication (Acute) [facility] Vascular 09/03/22 Allergic rhinitis, unspecified (Acute ~09/07/22) Chest discomfort (Acute) Obstructive sleep apnea (adult) (pediatric) (Acute ~04/2022) 07/02/22 per Sleep Note - has difficulty using CPAP Fall (on) (from) other stairs and steps, initial encounter (Acute) Encounter for fertility planning (Acute) Nasal valve collapse (Acute ~04/2022) Nasal obstruction (Acute ~04/2022) 05/18/22 Otolaryngology B12 deficiency (Acute) Insulin resistance (Acute 02/24/22) Vitamin D deficiency, unspecified (Acute) Obstructive sleep apnea (Chronic) GERD (gastroesophageal reflux disease) (Chronic) [facility] Gastro - Heartburn 09/04/22 GERD w/esophagitis, w/out hemorrhage Class 1 obesity with body mass index (BMI) of 31.0 to 31.9 in adult (Acute ~10/09/21) 12/10/21 [facility] Weight Wellness Telehealth Myalgia (Acute ~10/09/21) Enlarged testicle (Acute) Leg pain, posterior (Acute) Dental abscess (Acute) GORDON (nonalcoholic steatohepatitis) (Acute ~07/2021) 08/04/21 [facility] GI note Dr Allan Salazar, dental (Acute) Rebound headache (Acute) Sore throat (Acute) Nasal congestion (Acute) Chronic nasal congestion (Acute) Deviated nasal septum (Acute) Hypertrophy of both inferior nasal turbinates (Acute) Chronic rhinitis (Acute) Contusion of great toe (Acute) Leg cramps, sleep related (Acute) Arthritis of knee (Acute) BMI 32.0-32.9,adult (Acute 11/06/20) DELMIS on CPAP (Chronic 01/01/21) Bronchitis (Acute) Post-immunization reaction (Acute) Pneumonia (Acute) Transaminitis (Acute) Liver cyst (Acute) Right-sided chest pain (Acute) Excessive sleepiness (Acute) Esophagitis determined by endoscopy (Acute) Epigastric pain (Acute) Hepatic cyst (Acute) BRBPR (bright red blood per rectum) (Acute) Leg length discrepancy (Acute) Essential hypertension (Acute) Scoliosis (Acute) Family history of pancreatic cancer (Acute) Family history of colon cancer (Chronic) Mother, age 53 Elevated fasting glucose (Acute) Hiatal hernia with gastroesophageal reflux (Acute) Insomnia (Acute) Depression (Chronic) Asthma (Chronic) Medical History Dyspepsia Tendinitis of right quadriceps tendon Surgical History H/O nasal septoplasty (06/11/22) Septoplasty and turbinate reduction History of colonoscopy (~09/13/20) History of esophagogastroduodenoscopy (EGD) (~09/13/20) Hx of esophagogastroduodenoscopy Spring 2019 S/P nasal surgery Bilateral excisional inferior turbinoplasty (05/19/2021) Family History Maternal Grandmother Pancreatic cancer Diabetes Paternal Grandmother Diabetes Father Heart disease Hypertension Mother Colon cancer Social History Smoking/Tobacco Use Status: Former Tobacco Use Quit Date: 06/25/20 Tobacco: How many years used: 10 Second Hand Exposure: No Smoking risk assessment performed?: Yes Alcohol Intake: current Alcohol Intake frequency: holidays/special occasions only Drug use: Never Substance use type: does not use Details: pt. reports no alcohol use Adopted: Yes Caregiver/Support person: No Foster care: Yes Household members: significant other Housing: apartment Number of Children: 0 Communication Needs: None Education Level: high school Do you need help understanding health information?: Never current occupation: [employer] Pets and animals: Yes Pets and animals: cat(s) and bird(s) Sexually active: No Do you think of yourself as: Decline to Provide Current gender identity: male What is your relationship status?: living with partner How often do you get together with friends or relatives?: twice per week How often do you attend cheondoism or anabaptism services?: decline to answer Do you belong to any clubs or organized social groups?: no Panel score (0-1 are the most socially isolated patients): 1 What type of physical activity do you participate in: walking and independent ambulation Frequency: 1-2 times per week Stefanie/Gnosticist: No preference Special stefanie needs: No Agree to transfusion: Yes Seatbelt use: sometimes Helmet use: No Drive intox or ride w/intox professional driver: No Working smoke detector in home: Yes Fire extinguisher in home: Yes Carbon monox detector in home: Yes Firearms in home: No Do you feel safe at home: Yes Do you feel safe in your relationship?: Yes Exam Narrative Exam Narrative: 1.Const: Well-nourished, Well-developed, appearing stated age 2.Eyes: PERRL, no conjunctival injection, and symmetrical lids. 3.ENT: Atraumatic external nose and ears. Moist MM. Neck: Symmetric, trachea midline, No thyromegaly. 4.CVS: +S1/S2, No murmurs or gallops. Peripheral pulses 2+ and equal in all extremities. Brisk capillary refill in all extremities. 5.RESP: Unlabored respiratory effort. Clear to auscultation bilaterally. No wheezes rales or rhonchi 6.GI: Soft, Nontender/Nondistended, No hepatosplenomegaly. No guarding or rebound. 7.MSK: Normocephalic/Atraumatic, Extremities w/o deformity or ttp No cyanosis or clubbing, Normal movement of all extremities 8.Skin: Warm, Dry. No rashes or lesions. 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 Sensation grossly intact, no focal neurologic deficits. 10.Psych: (AAO) x3. Appropriate mood and affect Course Vital Signs Vital signs: Vital Signs Temperature 36.4 C L 04/08/23 17:21 Pulse 62 04/08/23 17:21 Respiratory Rate 18 04/08/23 17:21 Blood Pressure 119/86 04/08/23 17:21 Temperature 36.4 C L 04/08/23 17:21 Temperature Source Skin 04/08/23 17:21 Pulse 56 L 04/08/23 18:01 Pulse 58 L 04/08/23 18:01 Respiratory Rate 20 04/08/23 18:01 Respiratory Effort Normal 04/08/23 17:30 Respiratory Depth Normal 04/08/23 17:30 Blood Pressure 117/62 04/08/23 18:01 Blood Pressure Mean 79 04/08/23 18:01 Blood Pressure Position Supine 04/08/23 17:21 Oxygen Delivery Method Room Air 04/08/23 17:21 Oxygen Flow Rate 0 04/08/23 17:21 Pain Level 7 04/08/23 17:21 Lab/Test Results Lab/Test Results: Laboratory Tests Range/Units 04/08/23 04/08/23 04/08/23 17:43 17:43 17:43 WBC (4.4-10.8) 10^3/uL 7.54 RBC (4.36-5.78) 10^6/uL 5.71 Hgb (13.5-17.5) g/dL 16.8 Hct (40.0-50.0) % 47.7 MCV (80-95) fL 84 MCH (27.0-33.0) pg 29.4 MCHC (32.0-36.0) % 35.2 RDW (11.8-14.1) % 12.4 Plt Count (130-400) 10^3/uL 282 MPV (8.0-11.0) fL 10.7 Immature Gran % 0.3 Neutrophils % 64.9 Lymphocytes % 27.2 Monocytes % 4.9 Eosinophils % 2.0 Basophils % 0.7 Nucleated RBC % (0.0-0.3) % 0.0 Absolute Neutrophils (1.2-6.7) 10^3/uL 4.90 Absolute Lymphocytes (1.2-3.4) 10^3/uL 2.05 Absolute Monocytes (0.1-0.8) 10^3/uL 0.37 Absolute Eosinophils (0.0-0.7) 10^3/uL 0.15 Absolute Basophils (0.0-0.2) 10^3/uL 0.05 Sodium (136-145) mmol/L 141 Potassium (3.5-5.1) mmol/L 3.7 Chloride (98-107) mmol/L 104 Carbon Dioxide (21.0-32.0) mmol/L 23.8 Anion Gap (3-11) mmol/L 13.2 H BUN (7-18) mg/dL 11 Creatinine (0.70-1.30) mg/dL 1.2 Est GFR (CKD-EPI 2020) (mL/min/1.73m2) 81.89 Glucose (74-106) mg/dL 92 Calcium (8.5-10.1) mg/dL 9.3 Total Bilirubin (0.2-1.0) mg/dL 0.9 AST (15-37) U/L 14 L ALT (16-63) U/L 23 Alkaline Phosphatase (46-116) U/L 85 Troponin I Cancelled < 50 Total Protein (6.4-8.2) g/dL 7.9 Albumin (3.4-5.0) g/dL 4.4 Lipase (16-77) U/L 37
[2023-04-08 18:20] LABS: D-Dimer 169 ng/mlFEU (<500)
--- NOTE | 2023-04-08 19:21 | DI.VRAD_ITS ---
PROCEDURE INFORMATION: Exam: XR Chest Exam date and time: 04/08/2023 6:19 PM Age: 32 years old Clinical indication: Pain; Left-sided TECHNIQUE: Imaging protocol: Radiologic exam of the chest. Views: 1 view. COMPARISON: CR XR RIBS RT W PA LAT CHEST 05/17/2022 3:03 PM FINDINGS: Lungs: Unremarkable. No consolidation. Pleural spaces: Unremarkable. No pleural effusion. No pneumothorax. Heart/Mediastinum: Unremarkable. No cardiomegaly. Bones/joints: Unremarkable. IMPRESSION: No acute findings. Dictated and Authenticated by: Antonio Kelly MD. Ordering:PAUL Ferrari MD
== END 2023-04-08 19:24 | disposition home or self-care (01) ==
PROVIDERS: Emergency Provider Student in an Organized Health Care Education/Training Program; PCP Family Medicine
DX: R07.9 Chest pain, unspecified (principal); R00.1 Bradycardia, unspecified; F90.9 Attention-deficit hyperactivity disorder, unspecified type
CPT/HCPCS: 36415; 80053; 83690; 93005; 99284; 71045; 84484; 85025; 85379; 93010; 99283

== ENCOUNTER 2023-08-11 12:05 | Emergency (ER) | payer MEDICAID, SELFPAY ==
[2023-08-11 12:29] VITALS: BP 121/80; PULSE 85; RESP 18; TEMP 36.7; O2SAT 99
--- NOTE | 2023-08-11 12:30 | DI.RAD_ITS ---
Exam(s) XR HAND RT COMPLETE EXAM: XR HAND RT COMPLETE CLINICAL HISTORY: fall/swelling/pain. TECHNIQUE: 2D digital imaging was performed. COMPARISON: No exams were available for comparison FINDINGS: 3 views No evidence of acute fracture nor dislocation nor abnormal soft tissue calcifications. No radiopaque foreign body. No osseous lesions nor erosions. No degenerative changes. IMPRESSION: No significant osseous findings DATA REPOSITORY: RADIATION DOSE DELIVERED:
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
[2023-08-11] MEDS: Ibuprofen 600 MG TAB PO (14:06)
== END 2023-08-11 14:07 | disposition home or self-care (01) ==
PROVIDERS: Emergency Provider Physician Assistant; PCP Family Medicine
DX: S60.221A Contusion of right hand, initial encounter (principal); Z87.891 Personal history of nicotine dependence; V28.41XA Electric (assisted) bicycle driver injured in noncollision transport accident in traffic accident, initial encounter
CPT/HCPCS: 29125; 99283; 73130

== ENCOUNTER 2023-08-12 07:26 | Emergency (ER) | payer MEDICAID, SELFPAY ==
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
[2023-08-12 07:34] VITALS: BP 126/79; PULSE 95; RESP 16; TEMP 36.3; O2SAT 99
== END 2023-08-12 07:59 | disposition home or self-care (01) ==
PROVIDERS: Emergency Provider Emergency Medicine Emergency Medical Services; PCP Family Medicine
DX: M79.641 Pain in right hand (principal); S60.221A Contusion of right hand, initial encounter; I10 Essential (primary) hypertension; V28.41XA Electric (assisted) bicycle driver injured in noncollision transport accident in traffic accident, initial encounter
CPT/HCPCS: 29125; 99283

== ENCOUNTER 2023-12-17 16:18 | Emergency (ER) | payer MEDICAID, SELFPAY ==
[2023-12-17 16:18] VITALS: BP 139/117; PULSE 80; RESP 16; TEMP 36.6; O2SAT 100
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
[2023-12-17] MEDS: Acetaminophen 500 MG TAB 1000 MG PO (16:45)
[2023-12-17] MEDS: Ibuprofen 600 MG TAB PO (16:46)
--- NOTE | 2023-12-17 17:17 | DI.RAD_ITS ---
Exam(s) XR ELBOW RT COMPLETE EXAM: XR ELBOW RT COMPLETE CLINICAL HISTORY: Right elbow pain. TECHNIQUE: 2D digital imaging was performed. COMPARISON: No exams were available for comparison FINDINGS: 3 views No evidence of acute fracture or joint effusion. There is no swelling of the olecranon bursa. Radia l head and neck appear unremarkable. Epicondyles unremarkable. No loose bodies. No radiopaque fore ign bodies. IMPRESSION: No acute osseous findings in the elbow. DATA REPOSITORY: RADIATION DOSE DELIVERED:
--- NOTE | 2023-12-17 17:17 | DI.RAD_ITS ---
Exam(s) XR SHOULDER RT COMPLETE 2+V EXAM: XR SHOULDER RT COMPLETE 2+V CLINICAL HISTORY: Right shoulder pain. TECHNIQUE: 2D digital imaging was performed. COMPARISON: CR XR SHOULDER RT COMPLETE 2+V from 08/23/2020 FINDINGS: Five views. No evidence of fracture or dislocation.. No abnormal soft tissue calcifications. Subacromial space unremarkable. Glenohumeral and acromioclavicular joints unremarkable. IMPRESSION: No acute osseous findings in the shoulder. DATA REPOSITORY: RADIATION DOSE DELIVERED:
--- NOTE | 2023-12-17 17:17 | DI.RAD_ITS ---
Exam(s) XR TIB/FIB LT EXAM: XR TIB/FIB LT CLINICAL HISTORY: Left proximal tibial pain. TECHNIQUE: 2D digital imaging was performed. COMPARISON: No exams were available for comparison FINDINGS: Two views-AP and lateral No evidence of fracture. Bone density normal. No osseous lesions. No radiopaque foreign bodies. B one density normal. IMPRESSION: No acute osseous findings in the tibia and fibula. DATA REPOSITORY: RADIATION DOSE DELIVERED:
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
[2023-12-17 17:55] VITALS: BP 132/75; PULSE 69; RESP 16; O2SAT 98
== END 2023-12-17 18:02 | disposition home or self-care (01) ==
PROVIDERS: Emergency Provider Emergency Medicine; PCP Family Medicine
DX: S50.311A Abrasion of right elbow, initial encounter (principal); S40.211A Abrasion of right shoulder, initial encounter; S60.512A Abrasion of left hand, initial encounter; I10 Essential (primary) hypertension; Z87.891 Personal history of nicotine dependence; V28.41XA Electric (assisted) bicycle driver injured in noncollision transport accident in traffic accident, initial encounter; Y92.488 Other paved roadways as the place of occurrence of the external cause; Y93.55 Activity, bike riding
CPT/HCPCS: 76604; 76705; 76857; 99284; 71046; 73030; 73080; 73590

== ENCOUNTER → 2024-01-13 13:37 | Outpatient (CLI) | payer MEDICAID, SELFPAY ==
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
== END ==
PROVIDERS: PCP Family Medicine; Visit Provider Physician Assistant Medical
DX: M25.562 Pain in left knee (principal)
CPT/HCPCS: 73562

== ENCOUNTER → 2024-02-16 01:01 | Outpatient (CLI) | payer MEDICAID, SELFPAY ==
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
== END ==
PROVIDERS: PCP Family Medicine; Visit Provider Nurse Practitioner
DX: M25.562 Pain in left knee (principal); V19.9XXA Pedal cyclist (driver) (passenger) injured in unspecified traffic accident, initial encounter
CPT/HCPCS: 73721

== ENCOUNTER 2024-03-13 03:00 | Outpatient (CLI) | payer MEDICAID, SELFPAY ==
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
== END 2024-03-13 03:20 ==
LOC: DI 03:00
PROVIDERS: PCP Family Medicine; Visit Provider Podiatrist
DX: M20.41 Other hammer toe(s) (acquired), right foot (principal)
CPT/HCPCS: 73630

== ENCOUNTER 2024-04-21 00:57 | Outpatient (CLI) | payer MEDICAID, SELFPAY ==
--- NOTE | 2024-04-21 06:45 | DI.RAD_ITS ---
Exam(s) XR CHEST 2V PA LATERAL EXAM: XR CHEST 2V PA LATERAL CLINICAL HISTORY: pre-op clearance,hypertension,asthma,h/o smoking,. TECHNIQUE: 2D digital imaging was performed. COMPARISON: CR XR CHEST 2V PA LATERAL from 12/17/2023 FINDINGS: 2 views: Heart size is normal. The mediastinum is not widened. There is platelike atelectasis in the lingular segment of the left lung. No other pulmonary findings and no pleural effusions. IMPRESSION: Platelike atelectasis in the lingular segment of the left lung. DATA REPOSITORY: RADIATION DOSE DELIVERED:
== END 2024-04-21 01:17 ==
LOC: DI 00:57
PROVIDERS: PCP Family Medicine; Visit Provider Podiatrist
DX: I10 Essential (primary) hypertension; I73.9 Peripheral vascular disease, unspecified; Z87.891 Personal history of nicotine dependence
CPT/HCPCS: 71046

== ENCOUNTER 2024-05-04 09:02 | Outpatient (CLI) | payer MEDICAID, SELFPAY ==
--- NOTE | 2024-05-04 09:00 | RT.EKG_ITS ---
APPROVED REPORT Exam: Resting ECG Reason for Exam: preop assessment Patient Location: O HR:72 bpm ECG Measurements Heart Rate 72 AXIS DC 157 P 58 QRSd 121 QRS -2 QT 373 T 40 QTc 408 Conclusion Sinus rhythm...normal P axis, V-rate 60- 99 Normal Electrocardiogram
--- NOTE | 2024-05-04 15:30 | RT.EKG_ITS ---
APPROVED REPORT Exam: Resting ECG Reason for Exam: Preop evaluation Patient Location: O HR:63 bpm ECG Measurements Heart Rate 63 AXIS SD 176 P 60 QRSd 87 QRS 56 QT 385 T 54 QTc 395 Conclusion Sinus rhythm...normal P axis, V-rate 50- 99 Normal Electrocardiogram
== END 2024-05-04 09:03 | disposition home or self-care (01) ==
PROVIDERS: PCP Family Medicine; Visit Provider Family Medicine
DX: Z01.818 Encounter for other preprocedural examination
CPT/HCPCS: 93010

== ENCOUNTER 2024-05-04 16:22 | Outpatient (CLI) | payer MEDICAID, SELFPAY ==
[2024-05-04 16:14] LABS: Abs Immature Grans 0.03 10^3/uL (0.0-0.06); Absolute Basophil Count 0.07 10^3/uL (0.0-0.2); Absolute Eosinophil Count 0.13 10^3/uL (0.0-0.7); Absolute Lymphocyte Count 1.89 10^3/uL (1.2-3.4); Absolute Monocyte Count 0.49 10^3/uL (0.1-0.8); Absolute Neutrophil Count 3.85 10^3/uL (1.2-6.7); Basophils % 1.1 %; HCT 46.9 % (40.0-50.0); HGB 16.1 g/dL (13.5-17.5); Immature Grans % 0.5 %; Lymphocytes % 29.3 %; MCHC 34.3 % (32.0-36.0); MCV 88 fL (80-95); MPV 10.3 fL (8.0-11.0); Monocytes % 7.6 %; Neutrophils % 59.5 %; Platelet Count 245 10^3/uL (130-400); RBC 5.36 10^6/uL (4.36-5.78); RDW 12.5 % (11.8-14.1); RDW-SD 39.5 fL; WBC 6.46 10^3/uL (4.4-10.8)
[2024-05-04 18:07] LABS: ALT 34 U/L (16-63); AST 23 U/L (15-37); Alkaline Phosphatase 64 U/L (46-116); Anion Gap 8.1 mmol/L (3-11); BUN 15 mg/dL (7-18); Bilirubin, Total 0.67 mg/dL (0.2-1.0); CO2 28.9 mmol/L (21.0-32.0); Calcium 9.2 mg/dL (8.5-10.1); Chloride 107 mmol/L (98-107); Estimated GFR 100.66 (mL/min/1.73m2); Glucose 93 mg/dL (74-106); Potassium 3.8 mmol/L (3.5-5.1); Sodium 144 mmol/L (136-145); Total Protein 6.9 g/dL (6.4-8.2)
== END 2024-05-04 16:23 | disposition home or self-care (01) ==
LOC: LBO 16:23
PROVIDERS: PCP Family Medicine; Visit Provider Podiatrist
DX: Z01.818 Encounter for other preprocedural examination (principal); K76.0 Fatty (change of) liver, not elsewhere classified; E53.8 Deficiency of other specified B group vitamins; I10 Essential (primary) hypertension; R74.01 Elevation of levels of liver transaminase levels
CPT/HCPCS: 36415; 80053; 83036; 85025

== ENCOUNTER 2024-05-08 06:07 | Day surgery (SDC) | payer MEDICAID, SELFPAY ==
[2024-05-08] VITALS (21 sets, daily range): BP systolic 96–129; BP diastolic 59–80; PULSE 66–83; RESP 13–18; TEMP 36.3–36.6; O2SAT 91–99; BMI 28.8
[2024-05-08] MEDS: Lactated Ringers 1,000 ML 30 ML IV (06:40)
--- NOTE | 2024-05-08 07:09 | ANES.PREOP_ITS ---
General Info Date of Service Date Performed: 05/08/24 Height: 5 ft 9 in Weight: 88.4 kg Body Mass Index (BMI): 28.8 Surgical Procedure: Operation Date: 05/08/24 07:40 Proposed Procedure Side Surgeon p Distal Metaphalangeal Joint Arthroplasty, Forth Toe Right Molly Kumar DPM Meds Allergies and Home Medications Allergies Allergy/AdvReac Type Severity Reaction Status Date / Time No Known Allergies Allergy Verified 05/08/24 06:23 Home Medication ?Medication ?Instructions ?Recorded acetaminophen 500 mg tablet 1,000 mg PO Q6H PRN back pain 07/14/22 celecoxib 200 mg capsule 200 mg PO BID PRN pain #60 caps 02/02/23 budesonide 180 mcg/actuation 2 inh inhalation BID #1 ea 06/19/23 breath activated powder inhaler (Pulmicort Flexhaler) albuterol sulfate 90 mcg/actuation 2 puff inhalation Q6H PRN 06/21/23 aerosol inhaler (Ventolin HFA) shortness of breath or wheezing #18 grams lisdexamfetamine 50 mg capsule 50 mg PO QAM 09/30/23 metformin 500 mg tablet,extended 500 mg PO DAILY 09/30/23 release 24 hr trazodone 50 mg tablet See Rx Instructions .Route 11/23/23 .COMPLEX #90 tabs esomeprazole magnesium 20 mg 20 mg PO DAILY PRN chest pain, 02/04/24 capsule,delayed release GERD #90 caps hyoscyamine sulfate 0.125 mg tablet 0.125 mg PO BID-QID PRN dyspepsia 02/11/24 #30 tabs salicylic acid 17 % topical gel 1 applic topical DAILY #7 grams 02/16/24 ibuprofen 200 mg tablet 200 mg PO Q6H PRN Leg pain #180 04/07/24 tabs Current Visit Medications: Current Medications Generic Name Dose Route Start Last Admin Trade Name Freq PRN Reason Stop Dose Admin Ringer's Solution 1,000 mls @ 30 mls/hr 05/08/24 06:00 05/08/24 06:40 IV 06/04/24 23:59 30 mls/hr INFUSION JAMEY Administration Cefazolin Sodium/Dextrose 2 gm in 50 mls @ 100 mls/hr 05/08/24 06:00 Ancef Duplex IVPB 05/08/24 16:00 PREOP JAMEY IV Miscellaneous Supplies 1 each 05/08/24 06:00 Iv Access IV 06/04/24 23:59 DIRECTED JAMEY Sodium Chloride 0 ml 05/08/24 06:00 Normal Saline Flush 10 Ml Syr IV 06/04/24 23:59 PRN PRN Sodium Chloride 0 ml 05/08/24 06:00 Normal Saline 10 Ml Vial IJ 06/04/24 23:59 DIRECTED PRN Sterile Water 0 ml 05/08/24 06:00 Water,Injection,Sterile 10 Ml Vial IJ 06/04/24 23:59 DIRECTED PRN PFSH Active Problems Active Problems: Problem Status Onset Code Preprocedural examination Acute Z01.818 Metabolic dysfunction-associated steatohepatitis (MASH) Acute K75.81 Plantar verruca Acute B07.0 Pain in right foot Acute M79.671 Corns and callosities Acute L84 Hammertoe of right foot Acute M20.41 Diffuse esophageal spasm Acute K22.4 Bilateral knee pain Acute M25.561, M25.562 Mild binge-eating disorder Acute F50.81 Attention-deficit hyperactivity disorder, combined type Acute F90.2 Arthralgia of knee, left Acute M25.562 Abnormal auditory perception of both ears Acute H93.293 Nocturia Acute R35.1 NAFLD (nonalcoholic fatty liver disease) Acute K76.0 Intermittent claudication Acute I73.9 Allergic rhinitis, unspecified Acute ~09/07/22 J30.9 Chest discomfort Acute R07.89 Obstructive sleep apnea (adult) (pediatric) Acute ~04/2022 G47.33 Fall (on) (from) other stairs and steps, initial encounter Acute W10.8XXA Encounter for fertility planning Acute Z31.89 Nasal valve collapse Acute ~04/2022 J34.89 Nasal obstruction Acute ~04/2022 J34.89 B12 deficiency Acute E53.8 Insulin resistance Acute 02/24/22 E88.81 Vitamin D deficiency, unspecified Acute E55.9 Obstructive sleep apnea Chronic G47.33 GERD (gastroesophageal reflux disease) Chronic K21.9 Class 1 obesity with body mass index (BMI) of 31.0 to 31.9 in adult Acute ~10/09/21 E66.9, Z68.31 Myalgia Acute ~10/09/21 M79.10 Enlarged testicle Acute N50.89 Leg pain, posterior Acute M79.606 Dental abscess Acute K04.7 GORDON (nonalcoholic steatohepatitis) Acute ~07/2021 K75.81 Pain, dental Acute K08.89 Rebound headache Acute G44.40 Sore throat Acute J02.9 Nasal congestion Acute R09.81 Chronic nasal congestion Acute R09.81 Deviated nasal septum Acute J34.2 Hypertrophy of both inferior nasal turbinates Acute J34.3 Chronic rhinitis Acute J31.0 Contusion of great toe Acute S90.119A Leg cramps, sleep related Acute G47.62 Arthritis of knee Acute M17.10 BMI 32.0-32.9,adult Acute 11/06/20 Z68.32 DELMIS on CPAP Chronic 01/01/21 G47.33, Z99.89 Bronchitis Acute J40 Post-immunization reaction Acute T88.1XXA Pneumonia Acute J18.9 Transaminitis Acute R74.01 Liver cyst Acute K76.89 Right-sided chest pain Acute R07.9 Excessive sleepiness Acute G47.10 Esophagitis determined by endoscopy Acute K20.90 Epigastric pain Acute R10.13 Hepatic cyst Acute K76.89 BRBPR (bright red blood per rectum) Acute K62.5 Leg length discrepancy Acute M21.70 Essential hypertension Acute I10 Scoliosis Acute M41.9 Family history of pancreatic cancer Acute Z80.0 Family history of colon cancer Chronic Z80.0 Elevated fasting glucose Acute R73.01 Hiatal hernia with gastroesophageal reflux Acute K21.9, K44.9 Insomnia Acute G47.00 Depression Chronic F32.9 Asthma Chronic J45.909 Medical History Medical History Tendinitis of right quadriceps tendon Dyspepsia Surgical History Surgical History H/O nasal septoplasty (06/11/22) Septoplasty and turbinate reduction S/P nasal surgery Bilateral excisional inferior turbinoplasty (05/19/2021) History of esophagogastroduodenoscopy (EGD) (~09/13/20) History of colonoscopy (~09/13/20) Hx of esophagogastroduodenoscopy Spring 2019 Tobacco Smoking/Tobacco Use Status: Former Tobacco Use Passive smoking exposure: No Second hand exposure: No Alcohol Alcohol Intake: current Alcohol intake frequency: holidays/special occasions only Substance Use Substance use: Never Substance use type: does not use Vital Signs and Lab Results Vital Signs Most Recent Vital Signs in EMR: Most Recent Vital Signs Temp Pulse Resp BP Pulse Ox 36.4 C L 77 17 129/80 97 05/08/24 06:16 05/08/24 06:16 05/08/24 06:16 05/08/24 06:16 05/08/24 06:16 Lab Results Blood Type / Crossmatch: No Data to Display Complete Blood Count: White Blood Count 6.46 10^3/uL (4.4-10.8) 05/04/24 16:08 Red Blood Count 5.36 10^6/uL (4.36-5.78) 05/04/24 16:08 Hemoglobin 16.1 g/dL (13.5-17.5) 05/04/24 16:08 Hematocrit 46.9 % (40.0-50.0) 05/04/24 16:08 Platelet Count 245 10^3/uL (130-400) 05/04/24 16:08 Complete Metabolic Panel: Sodium 144 mmol/L (136-145) 05/04/24 16:08 Potassium 3.8 mmol/L (3.5-5.1) 05/04/24 16:08 Chloride 107 mmol/L (98-107) 05/04/24 16:08 Carbon Dioxide 28.9 mmol/L (21.0-32.0) 05/04/24 16:08 BUN 15 mg/dL (7-18) 05/04/24 16:08 Creatinine 1.0 mg/dL (0.70-1.30) 05/04/24 16:08 Est GFR (CKD-EPI 2020) 100.66 (mL/min/1.73m2) 05/04/24 16:08 Calcium 9.2 mg/dL (8.5-10.1) 05/04/24 16:08 Albumin 4.0 g/dL (3.4-5.0) 05/04/24 16:08 Glucose 93 mg/dL (74-106) 05/04/24 16:08 Hemoglobin A1c 5.0 % (<5.7) 05/04/24 16:08 Liver Function Panel: Alanine Aminotransferase (ALT/SGPT) 34 U/L (16-63) 05/04/24 16: 08 Aspartate Amino Transf (AST/SGOT) 23 U/L (15-37) 05/04/24 16:08 Coagulation Panel: No Data to Display Cardiac Panel: No Data to Display Arterial Blood Gas: No Data to Display Venous Blood Gas: No Data to Display Pancreas Panel: No Data to Display Thyroid Panel: No Data to Display Infectious Disease: No Data to Display Blood Cultures: No Data to Display Toxicology Panel: No Data to Display Anesthesia Assessment and Plan Anesthesia History Personal History: No History of Anesthesia Complications Family History: No Family History of Anesthesia Complications Exercise Tolerance Exercise Tolerance: Metabolic Equivalents>4 Pertinent Negatives Pertinent Negatives: No Symptoms of GERD Cardiac & Pulmonary Exam Cardiac Exam: Normal S1/S2 Heart Sounds Pulmonary Exam: Clear Bilateral Breath Sounds Implantable Cardiac Device Does patient have a Pacemaker or an ICD?: No Airway Exam Known Difficult Airway: No Mallampati Class: 2 Mouth Opening: Normal (> 3cm) Thyromental Distance: Greater than 3 cm Neck Range of Motion: Full ROM Neck Circumference: Normal Teeth Condition: Normal Dentition ASA Classification ASA Score: ASA 2 Emergency Case?: No NPO Status NPO Status: NPO Clears >2 hours, Solids >8 hours Anesthesia Plan Resuscitation Status: Full Code Anesthesia Technique: General Anesthesia Airway Planned: LMA Monitors Used: Standard Monitors
[2024-05-08] MEDS: ceFAZolin 2 GM/50 ML BAG IVPB (07:30)
[2024-05-08] MEDS: Lidocaine 1% Pres-Free 30 ML VIAL (07:41)
[2024-05-08] MEDS: Bupivacaine 0.5% Pres-Free 30 ML VIAL (08:24)
--- NOTE | 2024-05-08 08:25 | DI.RAD_ITS ---
Exam(s) XR FOOT RT LIMITED EXAM: XR FOOT RT LIMITED CLINICAL HISTORY: Hammertoe of right foot TECHNIQUE: 2D and realtime digital imaging was performed. CONTRAST MATERIAL: Refer to procedure report. COMPARISON: CR XR FOOT RT COMPLETE from 03/13/2024 FINDINGS: Fluoroscopy was provided for Dr. Kumar in the OR. Please refer to the procedure report for complete details. Ka,r=0.01 mGy IMPRESSION: RADIATION DOSE DELIVERED: 0.0 0.0 0
--- NOTE | 2024-05-08 08:56 | W.PM.DSUDISC ---
Date of service: 05/08/24 Time of Service: 07:30 Discharge Plan Disposition Patient Disposition: Home Condition: Stable Discharge Details Attending Provider: Molly Kumar Primary Care Provider: Tony Dao Home Meds and New Rx's Prescriptions: No Action celecoxib 200 mg capsule 200 mg PO BID PRN (Reason: pain) Qty: 60 1RF Rx Instructions: Poor tolerance of non-selective NSAIDs trazodone 50 mg tablet See Rx Instructions .ROUTE .COMPLEX Qty: 90 3RF Dose Instruction: TAKE ONE TABLET BY MOUTH AT BEDTIME NEEDED FOR SLEEP Rx Instructions: TAKE ONE TABLET BY MOUTH AT BEDTIME NEEDED FOR SLEEP salicylic acid 17 % gel 1 applic topical DAILY Qty: 7 0RF Rx Instructions: apply to each wart acetaminophen 500 mg tablet 1,000 mg PO Q6H PRN (Reason: back pain) Pulmicort Flexhaler 180 mcg/actuation aerosol powdr breath activated 2 inh inhalation BID Qty: 1 0RF Patient Comments: last taken over two years ago Rx Instructions: Pls come in for appt w/ PCP or PULM albuterol sulfate [Ventolin HFA] 90 mcg/actuation HFA aerosol inhaler 2 puff inhalation Q6H PRN (Reason: shortness of breath or wheezing) Qty: 18 6RF Patient Comments: last taken over 2 years ago metformin 500 mg tablet extended release 24 hr 500 mg PO DAILY Rx Instructions: 1 tablet Qdinner for 2 wks, then increase to 2 tablets Qdinner lisdexamfetamine 50 mg capsule 50 mg PO QAM esomeprazole magnesium 20 mg capsule,delayed release(DR/EC) 20 mg PO DAILY PRN (Reason: chest pain, GERD) Qty: 90 3RF hyoscyamine sulfate 0.125 mg tablet 0.125 mg PO BID-QID PRN (Reason: dyspepsia) Qty: 30 6RF ibuprofen 200 mg tablet 200 mg PO Q6H PRN (Reason: Leg pain) Qty: 180 0RF Discharge Instructions Additional Instructions: Please keep the dressings clean dry and intact. Elevate the right foot at all times. Please limit walking. Please do not let the dressings get wet. Do not remove your dressings Please take pain medication as prescribed. Stand Alone Forms: Podiatry Instructions-DSU Equipment/Supplies: Walker Activity:: Elevate Remove Dressings/Wound Care:: Do Not Remove Shower/Bathe:: Cover Diet:: Normal Diet Discharge Orders Discharge Orders: Discharge Order (Routine); Ordered 05/08/24 Ordered By: Molly Kumar DS: Diagnosis Discharge Diagnosis (1) Hammertoe of right foot: Status: Acute (2) Pain in right foot: Status: Acute (3) Corns and callosities: Status: Acute
--- NOTE | 2024-05-08 10:01 | W.ANESPOSTOP ---
Postoperative Evaluation Date, Time and Location Date Performed: 05/08/24 Time Performed: 10:01 Patient Location: Day Surgery Unit Vital Signs Most Recent Imported Vital Signs: Most Recent Vital Signs Temp Pulse Resp BP Pulse Ox 36.3 C L 82 15 113/75 98 05/08/24 09:29 05/08/24 09:29 05/08/24 09:29 05/08/24 09:29 05/08/24 09:29 Pain Score Most Recent Pain Score: Most Recent Pain Score Pain Level 0 05/08/24 09:29 Assessment Mental Status: Awake (Alert & Oriented to Patient Baseline) Airway and Respiratory Function: Patent airway with normal (patient baseline) respiratory exam Cardiovascular Function: Hemodynamically Stable Hydration Status: Adequately Hydrated Nausea & Vomiting: No Nausea or Vomiting Pain: Pain is tolerable per patient Peripheral Nerve Block: Patient did not receive a nerve block
--- NOTE | 2024-05-08 12:02 | W.PM.OP ---
Date of service: 05/08/24 Time of Service: 07:30 Operative Note Operative Note DATE OF PROCEDURE: 05/08/24 PRE-OP DIAGNOSIS: Painful hammertoe, right foot POST-OP DIAGNOSIS: same PROCEDURE: Arthroplasty, distal interphalangeal joint, right fourth toe SURGEON: Molly Kumar ANESTHESIA TYPE: Local By Surgeon (10 mL 1% lidocaine plain preoperatively) Refer to Anesthesia Record ESTIMATED BLOOD LOSS: 0 PATHOLOGY: none sent TOURNIQUET TIME: 33 COMPLICATIONS: None Patient was transported to: same day Patient's condition: stable Indications: This is a 34-year-old male patient with a painful hammertoe to the right fourth toe with bony prominence noted at the level of the DIPJ laterally resulting in a painful corn. Patient presented to the clinic with a painful corn which she would like surgically treated as conservative care has failed. I discussed procedure in detail with the patient and discussed all the risks, benefits and possible complications of the procedure including but not limited to pain, nerve pain, fleeting toe, flail toe, lack of toe purchase, infection, wound dehiscence, nerve pain, CRPS, DVT, PE, NJ with anesthesia. Patient understands and assumes all risks. Consent form was signed reviewed and in chart. Known colonization Procedure Procedure Description: Patient was identified in preop holding. Site was marked. Consent form was signed, reviewed and in chart. No contraindications. Patient was brought to the operating room placed on the operating table in supine position with the anesthesia team. Upon induction of anesthesia other right fourth toe was then anesthetized via digital block using 10 mL 1% lidocaine plain preoperatively. Ankle tourniquet was applied. The right lower extremity was then scrubbed, prepped and draped in the usual aseptic manner. An Esmarch was utilized for exsanguination and an ankle tourniquet was then inflated to 250 mmHg. X-ray images were taken preoperatively. A lazy L-type incision site was planned using a sterile skin marker, with the short limb of the L extending laterally just distal to the painful corn. Using a sterile #15 blade incision was made through the skin and subcutaneous tissue this was deepened. Exposure was obtained to the DIPJ level upon transecting the extensor tendon dorsally at the level of the distal interphalangeal joint. The lateral collateral ligaments were then transected as well the tendon was reflected proximally thus exposing the head of the middle phalanx. Using a bone saw, the head of the middle phalanx was resected and passed from the operative field. Next, a small skin flap was resected proximal laterally enveloping the painful corn and passed from the operative field. Incision site was then flushed with copious months of sterile saline. The extensor tendon was then reapproximated using 4-0 Vicryl. The skin was then approximated using 4-0 nylon. A postoperative injection consisting of 10 mL 0.5% Marcaine plain was injected. The tourniquet was deflated and capillary refill was noted to all toes. Dressings were applied with Xeroform gauze, 4 x 4, Kerlix and Maxi wrap. Patient tolerated the procedure and anesthesia well, with vascular status intact to the left foot and vital signs stable. Patient was transferred to same-day for further monitoring. Patient is to follow-up in office as scheduled.
== END 2024-05-08 10:22 | disposition home or self-care (01) ==
PROVIDERS: PCP Family Medicine; Visit Provider Podiatrist
PROC: (CPT 28285; principal; 2024-05-08 07:30)
DX: M20.41 Other hammer toe(s) (acquired), right foot (principal); M79.671 Pain in right foot; L84 Corns and callosities
CPT/HCPCS: 28285; 00123; 76000; 73620; J0665; J0690; J1100; J2250; J2405; J2704

== ENCOUNTER 2024-05-18 02:09 | Outpatient (CLI) | payer MEDICAID, SELFPAY ==
--- NOTE | 2024-05-18 10:40 | DI.RAD_ITS ---
Exam(s) XR FOOT RT COMPLETE EXAM: XR FOOT RT COMPLETE CLINICAL HISTORY: Post op,PAIN RT FOOT,GERA,M79.671,M20.41. TECHNIQUE: 2D digital imaging was performed of the right foot. Three images were obtained. AP, obl ique and lateral views were obtained. COMPARISON: CR XR FOOT RT COMPLETE from 03/13/2024 CR XR FOOT RT LIMITED from 05/08/2024 FINDINGS: BONES: No acute fracture is present. There is an enthesophyte at the posterior calcaneus. There aga in seen postsurgical changes with resection of the head of the middle phalanx of the right 4th toe. There is no change in appearance of the cortex of the distal middle phalanx of the 4th toe. JOINTS: No dislocation present. The joint spaces are well maintained. SOFT TISSUE: There is a soft tissue defect at the lateral aspect of the 4th toe at the DIP joint. No soft tissue gas is appreciated. IMPRESSION: 1. Stable postsurgical changes with resection of a portion of the distal aspect of the middle phalanx of the right 4th toe. Bone has a similar appearance to the postoperative images. 2. Skin defect at the lateral aspect of the right 4th toe at the level of the DIP joint. No soft tis candelario gas is appreciated. This may be postsurgical. This had a similar appearance on 05/08/2024. Plea se correlate with physical exam. DATA REPOSITORY: RADIATION DOSE DELIVERED:
== END 2024-05-18 02:29 ==
LOC: DI 02:09
PROVIDERS: PCP Family Medicine; Visit Provider Podiatrist
DX: Z98.890 Other specified postprocedural states (principal); M20.41 Other hammer toe(s) (acquired), right foot
CPT/HCPCS: 73630

== ENCOUNTER 2024-06-13 14:47 | Outpatient (CLI) | payer MEDICAID, SELFPAY ==
--- NOTE | 2024-06-13 12:15 | DI.RAD_ITS ---
Exam(s) XR FOOT RT COMPLETE EXAM: XR FOOT RT COMPLETE CLINICAL HISTORY: evaluate R 4th toe, s/p surgery,post op pain,m79.609. TECHNIQUE: 2D digital imaging was performed. COMPARISON: CR XR FOOT RT COMPLETE from 05/18/2024 FINDINGS: 3 views No evidence of acute fracture or diastasis of the Lisfranc joint. Great toe metatarsophalangeal join t appears unremarkable as do the other MTP joints. With respect of the 4th toe, there is again noted evidence of resection of the distal aspect of the m iddle phalanx there does not appear to be obvious radiographic evidence of osteomyelitis at this leve l. There is no gas in the soft tissues. No radiopaque foreign bodies evident. The proximal aspect of the distal phalanx appears unremarkable. IMPRESSION: As above. No obvious radiographic evidence of osteomyelitis at the surgical site in the 4th toe midd le phalanx DATA REPOSITORY: RADIATION DOSE DELIVERED:
== END 2024-06-13 15:07 ==
LOC: DI 14:47
PROVIDERS: PCP Family Medicine; Visit Provider Podiatrist
DX: G89.18 Other acute postprocedural pain (principal)
CPT/HCPCS: 73630

== ENCOUNTER 2024-08-02 03:33 | Outpatient (CLI) | payer MEDICAID, SELFPAY ==
--- NOTE | 2024-08-02 | DI.RAD_ITS ---
Exam(s) XR FOOT RT COMPLETE EXAM: XR FOOT RT COMPLETE CLINICAL HISTORY: rt foot postop pain,m79.609,g89.18. TECHNIQUE: 2D digital imaging was performed of the right foot. Three images were obtained. AP, obl ique and lateral views were obtained. COMPARISON: CR XR FOOT RT COMPLETE from 06/13/2024 FINDINGS: BONES: No acute fracture is present. There again seen postsurgical changes of resection of the distal half of the middle phalanx of the 4th toe. The bone appears unchanged compared to the prior examina tion. There is a small enthesophyte at the posterior calcaneus. JOINTS: No dislocation present. SOFT TISSUE: There is mild soft tissue swelling of the 4th toe. No soft tissue gas or foreign body i s seen. IMPRESSION: 1. Stable appearance of the resection site involving the middle phalanx of the 4th toe. 2. Soft tissue swelling of the 4th toe. No soft tissue gas is appreciated DATA REPOSITORY: RADIATION DOSE DELIVERED:
== END 2024-08-02 03:53 ==
LOC: DI 03:33
PROVIDERS: PCP Family Medicine; Visit Provider Podiatrist
DX: G89.18 Other acute postprocedural pain (principal)
CPT/HCPCS: 73630

== ENCOUNTER 2025-02-20 03:52 | Outpatient (CLI) | payer MEDICAID, SELFPAY ==
--- NOTE | 2025-02-20 07:59 | DI.RAD_ITS ---
Exam(s) XR FOOT RT COMPLETE EXAM: XR FOOT RT COMPLETE CLINICAL HISTORY: s/p arthroplasty RT 4th toe, still having pain,m79.671. TECHNIQUE: 2D digital imaging was performed. Three views. COMPARISON: CR XR FOOT RT COMPLETE from 03/13/2024 CR XR FOOT RT COMPLETE from 05/18/2024 CR XR FOOT RT COMPLETE from 06/13/2024 CR XR FOOT RT COMPLETE from 08/02/2024 FINDINGS: BONES: Postsurgical changes of the 4th toe are again noted, with resection of the distal portion of the middle phalanx. The middle phalanx appears unchanged. There is a suggestion of faint erosions at the base of the distal phalanx. No acute fracture is present. No bony destructive lesion is seen. JOINTS: No dislocation present. SOFT TISSUE: No abnormal gas collection or foreign body. IMPRESSION: Postsurgical changes at the middle phalanx of the 4th toe. Bony erosions noted at the base of the distal phalanx appear new. Findings could indicate osteomyelitis. Clinical correlation recommended. DATA REPOSITORY: RADIATION DOSE DELIVERED:
== END 2025-02-20 04:12 ==
LOC: DI 03:52
PROVIDERS: PCP Family Medicine; Visit Provider Podiatrist
DX: M79.671 Pain in right foot (principal); R93.89 Abnormal findings on diagnostic imaging of other specified body structures; Z98.890 Other specified postprocedural states
CPT/HCPCS: 73630

== ENCOUNTER 2025-04-05 09:35 | Outpatient (CLI) | payer MEDICAID, SELFPAY ==
--- NOTE | 2025-04-05 | DI.RAD_ITS ---
Exam(s) XR KNEE RT 3V AP,LAT,KAPIL EXAM: XR KNEE RT 3V AP,LAT,KAPIL CLINICAL HISTORY: ACUTE PAIN RT KNEE, M25.561. TECHNIQUE: 2D digital imaging was performed. COMPARISON: CR XR KNEE LT 3V AP,LAT,KAPIL from 01/13/2024 FINDINGS: 3 views There is no evidence of acute fracture but there is a joint effusion signifying probable internal derangement. There is no joint space narrowing nor osteophytes. No loose intra-articular bodies. Bone density normal. No osseous lesions. IMPRESSION: No acute osseous findings but there does appear to be a small-moderate size joint effusion which may signify the presence of an internal derangement. Orthopedic follow-up recommended. DATA REPOSITORY: RADIATION DOSE DELIVERED:
== END 2025-04-05 09:55 ==
PROVIDERS: PCP Family Medicine; Visit Provider Physician Assistant Medical
DX: M25.561 Pain in right knee (principal)
CPT/HCPCS: 73562

== ENCOUNTER 2025-04-12 04:13 | Outpatient (CLI) | payer MEDICAID, SELFPAY ==
--- NOTE | 2025-04-12 06:55 | DI.MRI_ITS ---
Exam(s) MR LOWER EXTREMITY RT WO/W EXAM: MR LOWER EXTREMITY RT WO/W CLINICAL HISTORY: DIPJ right 4th toe OSTEOMYELITIS,M86.9. TECHNIQUE: Multiplanar multisequence MRI of the right 4th toe was performed. CONTRAST MATERIAL: IV Contrast: 16 mL of Dotarem contrast administered. COMPARISON: CR XR FOOT RT COMPLETE from 08/02/2024 CR XR FOOT RT COMPLETE from 02/20/2025 FINDINGS: BONES/JOINTS: No fracture or contusion pattern. No bone lesions identified. There are postsurgical changes of resection of a portion of the middle phalanx of the 4th toe. There is normal marrow signal seen on the T1 weighted images in the middle and distal phalanges of the 4th toe. Following contrast administration no definite significant enhancement is seen.. MUSCULOTENDINOUS STRUCTURES: The muscles show normal signal and size. No muscular fatty atrophy. SOFT TISSUES: There is no focal fluid collection seen in 4th toe suggest an abscess. Foci of hypointense T1 and T2 signal are seen in the soft tissues which likely are sequelae of surgery. OTHER FINDINGS: None. IMPRESSION: 1. There is no evidence to suggest osteomyelitis at this time in the 4th toe. 2. Postsurgical changes at the DIP joint of the 4th toe. 3. No focal fluid collection is seen in the 4th toe to suggest an abscess. DATA REPOSITORY:
[2025-04-12] MEDS: Gadoterate meglumine 20 ML SYRINGE IVP (13:04)
[2025-04-12] MEDS: Normal Saline Flush 10 ML SYR IVP (13:05)
== END 2025-04-12 04:33 ==
PROVIDERS: PCP Family Medicine; Visit Provider Podiatrist
DX: M86.8X8 Other osteomyelitis, other site (principal)
CPT/HCPCS: 73720